=== PATIENT | female | born 1955 | race Caucasian/White ===

== ENCOUNTER 2017-07-28 22:39 | Observation (INO) | payer OTHER, SELFPAY ==
[2017-07-28 22:40] VITALS: BP 165/95; PULSE 64; RESP 16; TEMP 36.4; O2SAT 98; BMI 24.5
--- NOTE | 2017-07-28 23:03 | RAD_ITS ---
STUDY: X-RAY CHEST REASON FOR EXAM: Female, 61 years old. Chest pain TECHNIQUE: Frontal and lateral views of the chest. COMPARISON: None. FINDINGS: Left midlung atelectasis. There is no demonstrated pleural abnormality. Normal size heart. Normal mediastinum and bar. Normal visualized pulmonary arteries. Normal visualized aortic arch and descending thoracic aorta. Normal visualized thoracic spine. Normal visualized ribs, clavicles, and shoulders. There is no demonstrated abnormality of the visualized soft tissue structures of the upper abdomen. RAD/Chest PA and Lateral IMPRESSION: Left midlung atelectasis. Electronically Signed: Morris More MD at 0:01 EST Tel , Service support ,
--- NOTE | 2017-07-28 23:03 | EKG12_ITS ---
Test Reason : WEAKNESS Blood Pressure : / mmHG Vent. Rate : 062 BPM Atrial Rate : 062 BPM P-R Int : 178 ms QRS Dur : 072 ms QT Int : 442 ms P-R-T Axes : 060 -09 029 degrees QTc Int : 448 ms Normal sinus rhythm with sinus arrhythmia Normal ECG Confirmed by HEVER STRICKLAND ([id number]), facer operator RAYNE ALCOCER ([id number]) on 08/01/2017 12:58:54 PM Referred By: ELODIA Confirmed By:HEVER STRICKLAND
--- NOTE | 2017-07-28 23:04 | CT_ITS ---
STUDY: CT BRAIN WITHOUT CONTRAST REASON FOR EXAM: Female, 61 years old. Dizziness, lightheadedness RADIATION DOSAGE (If Supplied By Facility): CTDIvol = ( 44.99 ) mGy, DLP = ( 762.36 ) mGycm TECHNIQUE: Transaxial CT imaging of the brain was performed without administration of intravenous contrast material. Sagittal and coronal images are reformatted. Individualized dose optimization techniques were used for this CT. COMPARISON: None. FINDINGS: Normal soft tissue structures. Normal calvarium. Normal size ventricles and extra-axial spaces for the patient's age. Normal white matter tracts of the cerebral hemispheres. Normal basal ganglia and thalami. Normal brainstem. Normal cerebellum. There is no intracranial hemorrhage. There are no findings of an acute ischemic infarction. Normal visualized paranasal sinuses. CT/Brain/Head without Contrast IMPRESSION: Normal unenhanced CT scan of the brain. No acute intracranial process. Electronically Signed: Steve Tinoco DO at 0:03 EST , Service support ,
--- NOTE | 2017-07-28 23:09 | NURSING ---
NO OLD EKG
[2017-07-28] MEDS: Ondansetron 4 MG/2 ML Vial IV (23:11)
[2017-07-28] MEDS: Aspirin 81 MG TAB.CHEW 324 MG PO (23:12)
[2017-07-28 23:23] LABS: Absolute Lymphocyte Count 2.75 X10^3/ul (0.83-4.51); Absolute Neutrophil Count 3.4 X10^3/uL (2.0-7.7); Basophil# 0.03 X10^3/uL; Basophil% 0.4 % (0-1); Eosinophil# 0.11 X10^3/uL; Eosinophils% 1.6 % (0-5); Hematocrit 39.4 % (37-47); Hemoglobin 13.3 g/dl (12.0-15.0); Lymphocyte # 2.75 X10^3/ul (4.0); Lymphocyte % 39.8 % (19-41); Mean Corp Hgb Conc 33.8 g/gl (32-36); Mean Corpuscular Hgb 28.7 pg (27.0-32.0); Mean Corpuscular Volume 85.1 fL (81-99); Mean Platelet Vol. 9.4 fl (6.2-12.0); Monocyte# 0.65 X10^3/uL; Monocyte% 9.4 % (0-10); Neutrophil # 3.36 X10^3/uL (2.7-7.7); Neutrophil % 48.7 % (47-70); POSITIVE COUNT NO; POSITIVE DIFFERENTIAL NO; POSITIVE MORPHOLOGY NO; Platelet Count 237 K/mm3 (150-450); RBC Distribution Width CV 13.2 % (11.6-14.6); RBC Distribution Width SD 40.7 fl (35.1-43.9); Red Blood Count 4.63 M/mm3 (4.2-5.4); White Blood Count 6.9 K/mm3 (4.4-11.0)
[2017-07-28 23:36] LABS: Anion Gap 9 (5-15); BUN 21 mg/dL (7-18); BUN/Creat Ratio 16.4 RATIO (10-20); Calcium,Total 8.4 mg/dL (8.5-10.1); Chloride 107 mmol/L (98-107); Creatinine, Serum 1.28 mg/dL (0.55-1.02); EST Glomerular Filtration Rate 45 mL/min (>60); Est Glom Filt Rate - Afr Amer 55 mL/min (>60); Estimated Creatinine Clearance 35.71 ml/min; Glucose 100 mg/dL (74-106); Potassium 3.2 mmol/L (3.5-5.1); Sodium Level 144 mmol/L (136-145)
[2017-07-29] VITALS (7 sets, daily range): BP systolic 109–133; BP diastolic 63–76; PULSE 55–64; RESP 15–19; TEMP 36.4–36.7; O2SAT 95–98; BMI 25.3
--- NOTE | 2017-07-29 00:40 | ED.VISSUMM ---
- ER Visit Summary Date of Service: 07/29/17 Chief Complaint: Dizziness and right arm pain History of Present Illness: The patient is a 61 F presenting for evaluation secondary to dizziness and right arm pain. Patient states that she worked a 12-1/2 hour shift tonight. Her shifts are involved with heavy lifting. Patient states that she typically tolerates this well well, has not had any recent illnesses, but today while she was working she started to have a sudden feeling of lightheadedness and felt as if she was going to pass out. Patient states this lasted for a couple of minutes she actually had to sit down, and she had a repeat episode is sometime later. She denies that there was any chest pain or palpitations associated with this. Patient states that however at home, she started to developed intense nausea right arm pain and numbness and severe cold clammy skin and that her does also corroborate. Patient has no history of hypertension diabetes high cholesterol or premature family history of cardiac disease. She is a non-smoker. Patient has stress test back in 2001 prior to a surgery that was negative. She denies any DVT or PE risk factors. She denies any visual changes or weakness associated with this. She denies any speech difficulty. Physical Examination: Vital signs are within normal limits, patient is afebrile. General: Patient is well-nourished well-developed and in no acute distress. Head: Normocephalic, atraumatic Eyes: Pupils equal round and reactive bilaterally, extra occular motion intact bialterally ENT: Moist mucous membranes Neck: Supple, no lymphadenopathy, no JVD, no meningismus CVS: Heart regular rate and rhythm, no murmurs, rubs or gallops, normal S1 and S2, radial pulses 2+ bilaterally Resp: Respirations nondistressed, lung sounds clear bilaterally Abdomen: Soft, nontender, nondistended, no palpable masses, normal bowel sounds Back: Nontender Extremities: Nontender, atraumatic, active full range of motion, no peripheral edema Skin: warm, no rashes, no petechia Neuro: Alert and oriented x 4, CN 2-12 intact, no lateralizing neurological defecits NIH stroke scale negative Psyc: Normal affect Test Results: EKG shows sinus rate 62, normal MT and QTc intervals, normal ST segments and T waves no evidence of acute ischemia or arrhythmia. CBC, chemistry, troponin found to be negative. Chest x-ray negative per radiology. CT brain negative per radiology. Emergency Department Course and Treatment: Patient presented for evaluation secondary to a episode of dizziness right arm pain and diaphoresis. She was worked up for the possibility of cardiac etiology versus intracranial etiology. CT was negative, and the patient's symptoms really do not seem consistent with a stroke so further workup of that was not pursued. Patient's cardiac workup was also found to be negative as noted above. Went back and reinterviewed and reexamined the patient, she really is not somebody who seeks medical care very often and she states that she felt as if she was going to and her states that she was very cold and diaphoretic during this episode so I am still concerned for cardiac etiology despite her low risk heart score. I believe she requires admission I will discuss this with the hospitalist. Disposition: Admission Impression: 1. Chest pain This note was generated with [employer] dictation software. It may contain incorrect words, spelling, and punctuation that were not noted in review of the chart prior to signing ED Disposition - Plan for ED Patient: Chief Complaint: Weakness Referrals: Qamar Davison Chi, MD [Primary Care Provider] -
--- NOTE | 2017-07-29 00:44 | ED.DCSUM_ITS ---
- ER Visit Summary Date of Service: 07/29/17 Chief Complaint: Dizziness and right arm pain History of Present Illness: The patient is a 61 F presenting for evaluation secondary to dizziness and right arm pain. Patient states that she worked a 12- 1/2 hour shift tonight. Her shifts are involved with heavy lifting. Patient states that she typically tolerates this well well, has not had any recent illnesses, but today while she was working she started to have a sudden feeling of lightheadedness and felt as if she was going to pass out. Patient states this lasted for a couple of minutes she actually had to sit down, and she had a repeat episode is sometime later. She denies that there was any chest pain or palpitations associated with this. Patient states that however at home, she started to developed intense nausea right arm pain and numbness and severe cold clammy skin and that her does also corroborate. Patient has no history of hypertension diabetes high cholesterol or premature family history of cardiac disease. She is a non-smoker. Patient has stress test back in 2001 prior to a surgery that was negative. She denies any DVT or PE risk factors. She denies any visual changes or weakness associated with this. She denies any speech difficulty. Physical Examination: Vital signs are within normal limits, patient is afebrile. General: Patient is well-nourished well-developed and in no acute distress. Head: Normocephalic, atraumatic Eyes: Pupils equal round and reactive bilaterally, extra occular motion intact bialterally ENT: Moist mucous membranes Neck: Supple, no lymphadenopathy, no JVD, no meningismus CVS: Heart regular rate and rhythm, no murmurs, rubs or gallops, normal S1 and S2, radial pulses 2+ bilaterally Resp: Respirations nondistressed, lung sounds clear bilaterally Abdomen: Soft, nontender, nondistended, no palpable masses, normal bowel sounds Back: Nontender Extremities: Nontender, atraumatic, active full range of motion, no peripheral edema Skin: warm, no rashes, no petechia Neuro: Alert and oriented x 4, CN 2-12 intact, no lateralizing neurological defecits NIH stroke scale negative Psyc: Normal affect Test Results: EKG shows sinus rate 62, normal [place] and QTc intervals, normal ST segments and T waves no evidence of acute ischemia or arrhythmia. CBC, chemistry, troponin found to be negative. Chest x-ray negative per radiology. CT brain negative per radiology. Emergency Department Course and Treatment: Patient presented for evaluation secondary to a episode of dizziness right arm pain and diaphoresis. She was worked up for the possibility of cardiac etiology versus intracranial etiology. CT was negative, and the patient's symptoms really do not seem consistent with a stroke so further workup of that was not pursued. Patient's cardiac workup was also found to be negative as noted above. Went back and reinterviewed and reexamined the patient, she really is not somebody who seeks medical care very often and she states that she felt as if she was going to and her states that she was very cold and diaphoretic during this episode so I am still concerned for cardiac etiology despite her low risk heart score. I believe she requires admission I will discuss this with the hospitalist. Disposition: Admission Impression: 1. Chest pain This note was generated with [employer] dictation software. It may contain incorrect words, spelling, and punctuation that were not noted in review of the chart prior to signing ED Disposition - Plan for ED Patient: Chief Complaint: Weakness Referrals: Qamar Davison Chi, MD [Primary Care Provider] -
--- NOTE | 2017-07-29 01:46 | HP.PCM_ITS ---
Problem List (1) Chest pain Status: Acute (2) MARY (acute kidney injury) Status: Acute (3) Hypokalemia Status: Acute History of Present Illness Date of Admission: 07/29/17 Chief Complaint: Chest pain The patient is a 61 year old female previous healthy woke up this evening from right hand numbness. Numbness was severe and constant. Nothing made it better or worse. Pt became diaphoretic and became dizzy when standing. 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 She stated that during the shift she became lightheaded and almost passed out. She had to sit down which helped with her dizziness. However she stood up again, she experienced the lightheadedness. She developed chest pain today. She felt substernal pressure. It was severe and lasted for minutes. She came to the ED for further workup. Past Medical History Allergies morphine Adverse Reaction (Verified 07/28/17 22:41) Vomiting Home Medications: Ambulatory Orders Medication Instructions Recorded NK [NK] 07/28/17 Lives: Spouse/ Significant Other Smoking Status: Never smoker Alcohol: None Drugs: None - *Family History Maternal History Items: No pertinent history Review of Systems Constitutional: Denies: Chills, Fever, Weight Change HEENT: Denies: Head Aches, Sinus Congestion, Sinus Drainage Cardiovascular: Reports: Chest Pain, Light Headedness, Palpitations, Syncope Respiratory: Denies: Cough, Shortness of breath at rest, Sputum production Gastrointestinal: Denies: Abdominal Pain, Nausea, Vomiting Genitourinary: Denies: Dysuria Musculoskeletal: Denies: Joint Pain, Joint Tenderness Skin: Denies: Rash, Wounds Neurological: Denies: Numbness, Tingling, Focal weakness Psychiatric: Denies: Anxiety, Depression, Homicidal Ideations, Suicidal Ideations Hematologic/ Lymphatic: Denies: Easy Bruising, Easy Bleeding VTE Information - Inpt Only VTE Present on Admission: No VTE Mechan Device Prophylaxis: SCD's VTE Pharm Prophylaxis ordered?: Yes Patient Problems: Active and Suspected Problems Chest pain (Acute) MARY (acute kidney injury) (Acute) Hypokalemia (Acute) - Physical Exam General: Alert, Oriented x3, Cooperative HEENT: Atraumatic, PERRLA, EOMI, Normocephalic Neck: Supple, No JVD, Negative Carotid Bruits Lungs: Clear to auscultation, Normal air movement Cardiovascular: Regular rate, No murmurs Abdomen: Bowel Sounds Present, Soft, Non Tender Extremities: No edema, Capillary Refill Less than 3 Seconds Skin: No rashes, No breakdown Musculoskeletal: No Tenderness to Palpation of Joints or Extremities Neurological: Cranial nerves II-XII grossly intact Psych/Mental Status: Normal Affect, Appropriate Vital Signs Temp Pulse Resp BP Pulse Ox 97.5 F L 61 19 H 133/76 H 95 07/29/17 01:15 07/29/17 01:15 07/29/17 01:15 07/29/17 01:15 07/29/17 01:15 Oxygen Delivery Method Room Air Weight: 58.967 kg Body Mass Index (BMI) 24.5 Laboratory Tests Past 24 Hrs 07/28/17 07/28/17 22:55 22:55 WBC 6.9 RBC 4.63 Hgb 13.3 Hct 39.4 MCV 85.1 MCH 28.7 MCHC 33.8 RDW 13.2 RDW Differential 40.7 Plt Count 237 MPV 9.4 Immature Gran % (Auto) 0.100 Neut % (Auto) 48.7 Lymph % (Auto) 39.8 [place] % (Auto) 9.4 Eos % (Auto) 1.6 Baso % (Auto) 0.4 Absolute Neuts (auto) 3.4 Absolute Lymphs (auto) 2.75 Total Counted Not Reportable Sodium 144 Potassium 3.2 L Chloride 107 Carbon Dioxide 28.0 Anion Gap 9 BUN 21 H Creatinine 1.28 H Estim Creat Clear Calc 35.71 Est GFR (MDRD) Af Amer 55 L Est GFR (MDRD) Non-Af 45 L BUN/Creatinine Ratio 16.4 Glucose 100 Calcium 8.4 L Troponin I < 0.02 Assessment/Plan Active and Suspected Problems Chest pain (Acute) MARY (acute kidney injury) (Acute) Hypokalemia (Acute) 61 year old female previous healthy woke up this evening from right hand numbness. 1) Chest pain: Heart score 4 Will get serial trops. First trop negative. EKG and chest xray unremarkable. ECHO in AM. Stress test in AM. 2) MARY: Likely azotemia. Will hydrate. If no improvement, will consider workup. 3) Hypokalemia: Will replete. Monitor. 4) Prophylaxis: SCD / heparin.
[2017-07-29] MEDS: 0.9% Normal Saline 1,000 ML 125 ML IV (02:08)
[2017-07-29 03:28] LABS: Absolute Lymphocyte Count 1.86 X10^3/ul (0.83-4.51); Absolute Neutrophil Count 3.4 X10^3/uL (2.0-7.7); Basophil# 0.02 X10^3/uL; Basophil% 0.3 % (0-1); Eosinophil# 0.11 X10^3/uL; Eosinophils% 1.9 % (0-5); Hematocrit 38.1 % (37-47); Hemoglobin 12.4 g/dl (12.0-15.0); Lymphocyte # 1.86 X10^3/ul (4.0); Lymphocyte % 32.1 % (19-41); Mean Corp Hgb Conc 32.5 g/gl (32-36); Mean Corpuscular Hgb 27.7 pg (27.0-32.0); Mean Corpuscular Volume 85.2 fL (81-99); Mean Platelet Vol. 9.5 fl (6.2-12.0); Monocyte# 0.38 X10^3/uL; Monocyte% 6.6 % (0-10); Neutrophil # 3.42 X10^3/uL (2.7-7.7); Neutrophil % 58.9 % (47-70); POSITIVE COUNT NO; POSITIVE DIFFERENTIAL NO; POSITIVE MORPHOLOGY NO; Platelet Count 210 K/mm3 (150-450); RBC Distribution Width CV 13.3 % (11.6-14.6); RBC Distribution Width SD 41.1 fl (35.1-43.9); Red Blood Count 4.47 M/mm3 (4.2-5.4); White Blood Count 5.8 K/mm3 (4.4-11.0)
[2017-07-29 03:49] LABS: BUN 19 mg/dL (7-18); Creatinine, Serum 0.88 mg/dL (0.55-1.02); EST Glomerular Filtration Rate 69 mL/min (>60); Estimated Creatinine Clearance 51.94 ml/min; Glucose 95 mg/dL (74-106)
[2017-07-29 03:50] LABS: ALB/GLOB Ratio 1.2 RATIO (0.9-2.4); AST(SGOT) 20 U/L (15-37); Alanine Aminotransfer ALT/SGPT 22 U/L (13-56); Albumin, Serum 3.4 g/dL (3.2-5.0); Alkaline Phosphatase 83 U/L (45-117); Anion Gap 7 (5-15); BUN/Creat Ratio 21.5 RATIO (10-20); Calcium,Total 8.2 mg/dL (8.5-10.1); Chloride 108 mmol/L (98-107); Cholesterol 166 mg/dL (200); Est Glom Filt Rate - Afr Amer 84 mL/min (>60); Globulin 2.9 g/dL (2.2-4.2); High Density Lipoprotein 51 mg/dL; Magnesium 1.9 mg/dL (1.6-2.6); Protein, Total 6.3 g/dL (6.4-8.2); Sodium Level 142 mmol/L (136-145); Thyroid Stim Hormone (TSH) 0.53 uIU/mL (0.358-3.74); Triglycerides 62 mg/dL; Very Low Density Lipoprotein 12 mg/dL (5-40)
--- NOTE | 2017-07-29 05:55 | ECHOD_ITS ---
Reason For Study: CHEST PAIN Procedure This was a 2D Doppler, Color Flow transthoracic echocardiogram. Exam performed portable in patient room. Left Ventricle Normal LV size. Apical false tendon noted. Left ventricular systolic function is normal. The estimated ejection fraction is 65 %. Transmitral doppler flow suggestive of impaired relaxation of left ventricle. No regional wall motion abnormalities noted. Right Ventricle Normal RV size. Normal systolic function. Atria Normal left atrium. Normal right atrium. Mitral Valve There is no mitral annular calcification. Normal mitral valve. Trivial mitral valve insufficiency. Tricuspid Valve Normal tricuspid valve. Trivial tricuspid valve insufficiency. Right ventricular systolic pressure estimated to be 23 mmHg. Aortic Valve Trisinus/trileaflet aortic valve. Normal aortic valve. Trivial aortic valve insufficiency. Pulmonic Valve The pulmonic valve is not well visualized. Mild (1+) pulmonic valve insufficiency. Great Vessels Normal sized aortic root. Pericardium/Pleural No pericardial effusion. MMode/2D Measurements & Calculations LVIDd: 3.8 cm IVSd: 0.88 cm Ao root diam: 3.1 cm LVIDs: 2.6 cm LVPWd: 0.83 cm LA dimension: 3.0 cm RVDd: 3.4 cm FS: 32.5 % LAV(MOD-bp): 34.5 ml LA A4 area: 14.4 cm2 RA A4 area: 10.6 cm2 LAV(MOD-bp) Indexed: 21.6 ml/m2 LAV(MOD-sp2): 34.8 ml LAV(MOD-sp4): 31.2 ml Doppler Measurements & Calculations MV E max monty: 76.1 cm/sec Ao V2 max: 131.4 cm/sec LV V1 max: 103.2 cm/sec MV A max monty: 83.5 cm/sec Ao max P.9 mmHg LV V1 max P.3 mmHg MV E/A: 0.91 PA V2 max: 70.1 cm/sec TR max monty: 221.3 cm/sec TR max P.6 mmHg Interpretation Summary Left ventricular systolic function is normal. The estimated ejection fraction is 65 %. Apical false tendon noted. Trivial mitral valve insufficiency. Trivial tricuspid valve insufficiency. Trivial aortic valve insufficiency. Mild (1+) pulmonic valve insufficiency. Right ventricular systolic pressure estimated to be 23 mmHg. Transmitral doppler flow suggestive of impaired relaxation of left ventricle Ordering Physician: Shree Subramanian Referring Physician: Qamar Davison Chi Performed By: Mimi Son, KARTIKCS, RVT
--- NOTE | 2017-07-29 05:55 | EKG12_ITS ---
Test Reason : AM EKG Blood Pressure : / mmHG Vent. Rate : 070 BPM Atrial Rate : 070 BPM P-R Int : 184 ms QRS Dur : 064 ms QT Int : 446 ms P-R-T Axes : 068 009 029 degrees QTc Int : 481 ms Normal sinus rhythm Low voltage QRS Prolonged QT Abnormal ECG Confirmed by KRUNAL DE LA CRUZ, CAMILLE ([id number]), sound editor RAYNE ALCOCER ([id number]) on 08/02/2017 2:41:52 PM Referred By: GORDY BARRETO Confirmed By:CAMILLE HECTOR MD
[2017-07-29] MEDS: Lisinopril 5 MG Tablet PO (06:34)
[2017-07-29] MEDS: Aspirin E.C. 81 MG Tablet PO (06:34)
--- NOTE | 2017-07-29 10:00 | STRESSREP ---
Stress Test Report Date: 07/29/2017 Procedure: Exercise tolerance test/imaging study Indications: Chest pain; dizziness Consent: Per the patient Procedure: The patient exercised on a Jhoan protocol for 7 minutes 30 seconds completing stage 2 and 1 minute 30 seconds of stage III achieving a peak heart rate of 141 bpm (87 % predicted maximal heart rate) with a peak blood pressure 134/82 mmHg and a peak MET capacity of 8 METs. The baseline ECG demonstrated sinus bradycardia. The peak exercise ECG demonstrated no obvious ECG changes. [There were no cardiac dysrhythmias pretest, during exercise, or recovery]. The functional capacity was considered average. There was [no complaint of chest discomfort during exercise or recovery]. The examination was discontinued secondary to leg discomfort. Impression: 1. Technically adequate (percent predicted maximal heart rate greater than 85%) exercise tolerance test 2. Peak exercise ECG with no obvious ECG changes 3. No cardiac dysrhythmias pretest, during exercise, or recovery. 4. Nuclear images pending Myocardial perfusion imaging study: Technique: The patient was injected with 11.8 mCi of technetium 99m Cardiolite and subsequently rest SPECT Cardiolite nuclear imaging was obtained in the horizontal long, vertical long, and short axis views. The patient exercised on a Jhoan protocol for 7 minutes 30 seconds completing stage 2 and 1 minute 30 seconds of stage III achieving a peak heart rate of 141 bpm (87 % predicted maximal heart rate) with a peak blood pressure 134/82 mmHg and a peak MET capacity of 8 METs. The patient was injected with 35.4 mCi of technetium 99m Cardiolite and subsequently stress SPECT Cardiolite nuclear imaging was obtained in the horizontal long, vertical long, and short axis views. A gated Cardiolite study at peak stress was obtained. Interpretation: Rest and stress SPECT Cardiolite nuclear imaging status post realignment, normalization, and attenuation correction, demonstrates [the appearance of relative uniform tracer uptake and myocardial perfusion appearing within normal limits]. [There is end systolic thickening and brightening]. The gated Cardiolite study demonstrates [myocardial thickening and inward wall motion]. The reported LVEF is 70 %. Impression: 1. Rest and stress SPECT Cardiolite nuclear imaging demonstrate [relative uniform tracer uptake and myocardial perfusion appearing within normal limits]. 2. The gated Cardiolite study reports an LVEF of 70 %. Of note: During the aforementioned exercise tolerance test: Status post exercising for 7 minutes and 30 seconds, achieving greater than 85% predicted maximal heart rate, and receiving her second dose of technetium 99m Cardiolite, the treadmill, without provocation, was noted to abruptly stop. The patient was subsequently requested, as a cool down period, to walk in place for approximately 1 minute prior to exiting the treadmill. The patient continued in the recovery phase. The patient remained symptomatically and hemodynamically stable. This note was generated with [employer] dictation software. It may contain incorrect words, spelling, and punctuation that were not noted in checking the note before signing.
--- NOTE | 2017-07-29 11:13 | DCINST_ITS ---
- Discharge Diagnoses Current Active Problems: Current Active and Chronic Problems Chest pain (Acute) MARY (acute kidney injury) (Acute) Hypokalemia (Acute) You will use the following diet at home:: No restrictions Discharge Activity: Return to Normal Activity Weight Bearing Status: Weight bearing as tolerated Call your doctor if you observe: Fever of 101 or Higher, - - worsening pain/ numbness in right arm Instructions: ED Chest Pain NonCardiac Allergies/Adverse Reactions: Allergies morphine Adverse Reaction (Verified 07/28/17 22:41) Vomiting Medications to take at Discharge Cholecalciferol (Vitamin D3) [Vitamin D3] 400 unit PO DAILY 07/29/17 Ferrous Sulfate [Iron] 325 mg PO DAILY 07/29/17 Primary Care Physician: Qamar Davison Chi, MD [Primary Care Provider] - Within 2 Weeks Please Follow Up With: Sergio Dominguez DO - Orthopaedics. Call if pain in right leg does not improve. When: 1 month as needed for right leg pain. Proposed Discharge Date: 07/29/17
--- NOTE | 2017-07-29 11:14 | PCM.DC.SUM ---
Discharge Date and Diagnosis - Problem List Patient Problems: Active and Suspected Problems Chest pain (Acute) MARY (acute kidney injury) (Acute) Hypokalemia (Acute) Date of Admission: 07/29/17 Date of Discharge: 07/29/17 - Primary Discharge Diagnosis Active and Suspected Problems Chest pain (Acute) MARY (acute kidney injury) (Acute) Hypokalemia (Acute) Hospital Course and Treatment Imaging Results: 07/29/17 05:55 Echo Complete [ECHO] AM (NON MEDS) Nuclear Stress Test - Treadmil [NM] Routine Clinical Impression(s) from Imaging Studies Chest X-Ray 07/28/17 23:03 IMPRESSION: Left midlung atelectasis. Electronically Signed: Morris More MD at 0:01 EST Tel , Service support , Brain CT 07/28/17 23:04 IMPRESSION: Normal unenhanced CT scan of the brain. No acute intracranial process. Electronically Signed: Steve Tinoco DO at 0:03 EST , Service support , Procedures: 2-D Echocardiogram, Stress test Summary of Care Provided: The patient is a 61 year old F awoke with right arm numbness and pain. Subsequently patient became diaphoretic and anxious and pale. Patient is also having chest pain as well. Patient presented to the emergency room and had lab work that showed hypokalemia and an elevated creatinine 1.28. Concern was for chest pain and being a cardiac equivalent. Patient underwent a 2D echocardiogram as well as nuclear stress tests of which both were negative. It was felt that this may have been related with panic attack with patient having the pain in her right arm. The pain in her right arm I feel is probably radicular or possibly related with patient's prior history of shoulder surgery. Patient said involved her whole arm. So patient stated did not just involve her hand, so I do not feel that it was anything like an ulnar nerve neuropathy nor carpal tunnel syndrome. Patient also talks of very localized throbbing pain just above her lateral malleolus on her right leg. Patient states that it gets better with rest and when she does work it seems aggravated. Feel the patient may have some tendinitis and I told her as much. I do not feel that it was a sciatica equivalent. 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 I told her that it is not strong recommendation that she hold off from work but that she may use a work excuse if she desires so. I told that she may follow-up with orthopedics if it seems to be an ongoing issue after a couple more weeks as this is been going on for 2 weeks already. Patient does take ibuprofen daily. I advised caution with that and to use it sparingly as needed. Physical exam: Vital Signs Height 1.55 m Weight: 60.8 kg Weight in Pounds 134.0 lbs Pulse Ox 98 Temperature 36.5 C Pulse Rate 55 Respiratory Rate 16 Blood Pressure 109/69 Blood Pressure Position Semi-Fowlers There is no acute distress. And visualization of the patient's right leg where she had pain had no reproducible tenderness. No varicosities, no rash. No masses appreciated. [] Discharge Diet: No Restrictions Discharge Activity: Return to Normal Activity Weight Bearing Status: Weight bearing as tolerated Call your doctor if you observe: Fever of 101 or Higher, - - worsening pain/numbness in right arm Home Medications: Medications to take at Discharge Cholecalciferol (Vitamin D3) [Vitamin D3] 400 unit PO DAILY 07/29/17 Ferrous Sulfate [Iron] 325 mg PO DAILY 07/29/17 Primary Care Physician: Qamar Davison Chi, MD [Primary Care Provider] - Within 2 Weeks Please Follow Up With: Sergio Dominguez DO - Orthopaedics. Call if pain in right leg does not improve. When: 1 month as needed for right leg pain. Patient Instructions: ED Chest Pain NonCardiac Disposition: Home Minutes spent on discharge:: 28 Patient Condition:: Good Meaningful Use Info Meaningful Use Diagnoses (Choose all that apply): None applicable Code Visit OBSV E&M: 55628 Observation care discharge
--- NOTE | 2017-07-29 11:18 | DS.PCM_ITS ---
Discharge Date and Diagnosis - Problem List Patient Problems: Active and Suspected Problems Chest pain (Acute) MARY (acute kidney injury) (Acute) Hypokalemia (Acute) Date of Admission: 07/29/17 Date of Discharge: 07/29/17 - Primary Discharge Diagnosis Active and Suspected Problems Chest pain (Acute) MARY (acute kidney injury) (Acute) Hypokalemia (Acute) Hospital Course and Treatment Imaging Results: 07/29/17 05:55 Echo Complete [ECHO] AM (NON MEDS) Nuclear Stress Test - Treadmil [NM] Routine Clinical Impression(s) from Imaging Studies Chest X-Ray 07/28/17 23:03 IMPRESSION: Left midlung atelectasis. Electronically Signed: Morris More MD at 0:01 EST Tel , Service support , Brain CT 07/28/17 23:04 IMPRESSION: Normal unenhanced CT scan of the brain. No acute intracranial process. Electronically Signed: Steve Tinoco DO at 0:03 EST , Service support , Procedures: 2-D Echocardiogram, Stress test Summary of Care Provided: The patient is a 61 year old F awoke with right arm numbness and pain. Subsequently patient became diaphoretic and anxious and pale. Patient is also having chest pain as well. Patient presented to the emergency room and had lab work that showed hypokalemia and an elevated creatinine 1.28. Concern was for chest pain and being a cardiac equivalent. Patient underwent a 2D echocardiogram as well as nuclear stress tests of which both were negative. It was felt that this may have been related with panic attack with patient having the pain in her right arm. The pain in her right arm I feel is probably radicular or possibly related with patient's prior history of shoulder surgery. Patient said involved her whole arm. So patient stated did not just involve her hand, so I do not feel that it was anything like an ulnar nerve neuropathy nor carpal tunnel syndrome. Patient also talks of very localized throbbing pain just above her lateral malleolus on her right leg. Patient states that it gets better with rest and when she does work it seems aggravated. Feel the patient may have some tendinitis and I told her as much. I do not feel that it was a sciatica equivalent. 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 I told her that it is not strong recommendation that she hold off from work but that she may use a work excuse if she desires so. I told that she may follow-up with orthopedics if it seems to be an ongoing issue after a couple more weeks as this is been going on for 2 weeks already. Patient does take ibuprofen daily. I advised caution with that and to use it sparingly as needed. Physical exam: Vital Signs Height 1.55 m Weight: 60.8 kg Weight in Pounds 134.0 lbs Pulse Ox 98 Temperature 36.5 C Pulse Rate 55 Respiratory Rate 16 Blood Pressure 109/69 Blood Pressure Position Semi-Fowlers There is no acute distress. And visualization of the patient's right leg where she had pain had no reproducible tenderness. No varicosities, no rash. No masses appreciated. [] Discharge Diet: No Restrictions Discharge Activity: Return to Normal Activity Weight Bearing Status: Weight bearing as tolerated Call your doctor if you observe: Fever of 101 or Higher, - - worsening pain/ numbness in right arm Home Medications: Medications to take at Discharge Cholecalciferol (Vitamin D3) [Vitamin D3] 400 unit PO DAILY 07/29/17 Ferrous Sulfate [Iron] 325 mg PO DAILY 07/29/17 Primary Care Physician: Qamra Davison Chi, MD [Primary Care Provider] - Within 2 Weeks Please Follow Up With: Sergio Dominguez DO - Orthopaedics. Call if pain in right leg does not improve. When: 1 month as needed for right leg pain. Patient Instructions: ED Chest Pain NonCardiac Disposition: Home Minutes spent on discharge:: 28 Patient Condition:: Good Meaningful Use Info Meaningful Use Diagnoses (Choose all that apply): None applicable Code Visit OBSV E&M: 10486 Observation care discharge
--- NOTE | 2017-07-29 11:18 | PCM.WORK.EX ---
Work/School Excuse Work/School Excuse for:: Patient Please excuse this person from:: Work From: 07/28/17 through: 07/30/17 Restrictions: Light Duty
== END 2017-07-29 11:13 | disposition home or self-care (01) ==
LOC: ED 23:24 → PCU 07-29 01:31
PROVIDERS: Admitting Provider Internal Medicine; Emergency Provider Emergency Medicine; Family Provider Family Medicine Geriatric Medicine; PCP Family Medicine Geriatric Medicine
DX: R07.89 Other chest pain (principal); N17.9 Acute kidney failure, unspecified; E87.6 Hypokalemia; M79.601 Pain in right arm; R20.0 Anesthesia of skin; R42 Dizziness and giddiness
CPT/HCPCS: 36415; 70450; 71046; 78452; 80048; 80053; 80061; 83735; 84443; 84484; 85025; 93005; 93017; 93306; 96361; 96374; 99218; 99284; A9500; J7030; A4216; G0378; J2405; J2785

== ENCOUNTER → 2017-08-11 13:06 | Outpatient (CLI) | payer OTHER, SELFPAY ==
[2017-08-11 14:16] LABS: Anion Gap 7 (5-15); BUN 16 mg/dL (7-18); BUN/Creat Ratio 19.5 RATIO (10-20); Calcium,Total 8.4 mg/dL (8.5-10.1); Chloride 107 mmol/L (98-107); Creatinine, Serum 0.82 mg/dL (0.55-1.02); EST Glomerular Filtration Rate 75 mL/min (>60); Est Glom Filt Rate - Afr Amer 91 mL/min (>60); Glucose 97 mg/dL (74-106); Potassium 3.9 mmol/L (3.5-5.1); Sodium Level 141 mmol/L (136-145)
== END ==
PROVIDERS: Family Provider Family Medicine Geriatric Medicine; PCP Family Medicine Geriatric Medicine; Visit Provider Family Medicine Geriatric Medicine
DX: E87.1 Hypo-osmolality and hyponatremia (principal)
CPT/HCPCS: 36415; 80048; 87633

== ENCOUNTER → 2018-04-02 15:24 | Outpatient (CLI) | payer OTHER, SELFPAY ==
[2018-04-02 17:22] LABS: Absolute Lymphocyte Count 2.05 X10^3/ul (0.83-4.51); Absolute Neutrophil Count 4.2 X10^3/uL (2.0-7.7); Basophil# 0.03 X10^3/uL; Basophil% 0.4 % (0-1); Eosinophil# 0.14 X10^3/uL; Hematocrit 39.7 % (37-47); Hemoglobin 13.4 g/dl (12.0-15.0); Lymphocyte # 2.05 X10^3/ul (4.0); Lymphocyte % 29.5 % (19-41); Mean Corp Hgb Conc 33.8 g/gl (32-36); Mean Corpuscular Hgb 28.6 pg (27.0-32.0); Mean Corpuscular Volume 84.8 fL (81-99); Mean Platelet Vol. 9.9 fl (6.2-12.0); Monocyte# 0.49 X10^3/uL; Neutrophil # 4.23 X10^3/uL (2.7-7.7); Neutrophil % 60.8 % (47-70); Platelet Count 218 K/mm3 (150-450); RBC Distribution Width CV 13.1 % (11.6-14.6); RBC Distribution Width SD 39.7 fl (35.1-43.9); Red Blood Count 4.68 M/mm3 (4.2-5.4)
[2018-04-02 17:23] LABS: POSITIVE COUNT NO; POSITIVE DIFFERENTIAL NO; POSITIVE MORPHOLOGY NO
[2018-04-02 17:35] LABS: ALB/GLOB Ratio 1.1 RATIO (0.9-2.4); AST(SGOT) 21 U/L (15-37); Alanine Aminotransfer ALT/SGPT 26 U/L (13-56); Albumin, Serum 3.7 g/dL (3.2-5.0); Alkaline Phosphatase 110 U/L (45-117); BUN 20 mg/dL (7-18); BUN/Creat Ratio 26.4 RATIO (10-20); Calcium,Total 8.7 mg/dL (8.5-10.1); Creatinine, Serum 0.76 mg/dL (0.55-1.02); EST Glomerular Filtration Rate 83 mL/min (>60); Est Glom Filt Rate - Afr Amer 100 mL/min (>60); Globulin 3.3 g/dL (2.2-4.2); Glucose 83 mg/dL (74-106); Sodium Level 142 mmol/L (136-145)
[2018-04-02 17:36] LABS: Anion Gap 8 (5-15); Chloride 105 mmol/L (98-107); Potassium 3.8 mmol/L (3.5-5.1); Thyroid Stim Hormone (TSH) 0.48 uIU/mL (0.358-3.74)
[2018-04-04 11:32] LABS: Hep C Antibodies <0.1 s/co ratio (0.0-0.9)
== END ==
PROVIDERS: Family Provider Family Medicine Geriatric Medicine; PCP Family Medicine Geriatric Medicine; Visit Provider Family Medicine Geriatric Medicine
DX: R53.83 Other fatigue (principal); Z13.89 Encounter for screening for other disorder
CPT/HCPCS: 36415; 80053; 84443; 85025; 86803

== ENCOUNTER → 2018-05-18 09:26 | Outpatient (CLI) | payer OTHER, SELFPAY ==
[2017-07-29 01:53] VITALS: BMI 25.3
[2018-05-18 10:14] LABS: Hematocrit 43.3 % (37-47); Hemoglobin 14.2 g/dl (12.0-15.0); Mean Corp Hgb Conc 32.8 g/gl (32-36); Mean Corpuscular Hgb 28.2 pg (27.0-32.0); Mean Corpuscular Volume 85.9 fL (81-99); Mean Platelet Vol. 9.1 fl (6.2-12.0); Platelet Count 235 K/mm3 (150-450); RBC Distribution Width CV 13.2 % (11.6-14.6); RBC Distribution Width SD 41.4 fl (35.1-43.9); Red Blood Count 5.04 M/mm3 (4.2-5.4); White Blood Count 6.2 K/mm3 (4.4-11.0)
[2018-05-18 10:15] LABS: Scan Indicated on CBC? Y/N NO
[2018-05-18 10:35] LABS: Anion Gap 7 (5-15); BUN 18 mg/dL (7-18); Calcium,Total 8.9 mg/dL (8.5-10.1); Chloride 109 mmol/L (98-107); Creatinine, Serum 0.82 mg/dL (0.55-1.02); EST Glomerular Filtration Rate 75 mL/min (>60); Est Glom Filt Rate - Afr Amer 91 mL/min (>60); Glucose 92 mg/dL (74-106); Potassium 4.1 mmol/L (3.5-5.1); Sodium Level 145 mmol/L (136-145)
--- OUTSIDE RECORDS SUMMARY | 2018-07-03 23:24 | XMS RPT_ITS ---
:1955 Author Organization [place] Care Team Providers Name Role Phone ALEX FLEMING (MCKINLEY) Referring Unavailable KATIE MARTINEZ (JOHN) Attending Unavailable Sergio Spaulding Attending Unavailable Sergio Spaulding Referring Unavailable Saman, Qamar Chi Primary Care Unavailable Saman, Qamar Chi Primary Care Unavailable Marilynn, Shree Admitting Unavailable Fermin Hernandez Attending Unavailable Marilynn, Shree Admitting Unavailable Saman, Qamar Chi Primary Care Unavailable Marilynn, Shree Consulting Unavailable Fermin Hernandez Attending Unavailable Saman, Qamar Chi Attending Unavailable Saman, Qamar Chi Primary Care Unavailable Jair Marie Attending Unavailable Marilynn, Shree Referring Unavailable Warren Linares Attending Unavailable Marilynn, Shree Referring Unavailable Saman, Qamar Chi Attending Unavailable Saman, Qamar Chi Primary Care Unavailable PROBLEMS PROBLEMS DATE TYPE CONDITION / CODE ATTENDING STATUS SOURCE 05/18/2018 Unknown Z01.818 - Encounter Sergio Spaulding Active [facility] for other [facility] preprocedural Hospital examination / Repository Z01.818(ICD-10) 04/04/2018 Unknown R53.83 - Other Saman, Qamar Chi Active [place] fatigue / Community R53.83(ICD-10) Hospital Repository 12/18/2017 Unknown E87.1 - Saman, Qamar Chi Active [facility] Hypo-osmolality and Community hyponatremia / Hospital E87.1(ICD-10) Repository 12/18/2017 Unknown R42 - Dizziness and Fermin Hernandez Active [facility] giddiness / Community R42(ICD-10) Hospital Repository 08/24/2017 Unknown R07.9 - Chest pain, MoodispaJair hall Active [facility] unspecified / Community R07.9(ICD-10) Hospital Repository PROCEDURES PROCEDURES No Procedure Records FoundRESULTS RESULTS CBC-COMPLETE BLOOD CNT Collected: 05/18/2018 Status: F Source: J[facility] NO DIFF 9:39 AM [facility] TYPE CODE TESTS RESULT OUT OF RANGE REFERENCE UNITS LAB L100.1000 4.4-11.0 K/mm3 Normal WBC 6.2 LAB L100.1200 4.2-5.4 M/mm3 Normal RBC 5.04 LAB L100.1300 12.0-15.0 g/dl Normal HGB 14.2 LAB L100.1400 37-47 % Normal HCT 43.3 LAB L100.1500 81-99 fL Normal MCV 85.9 LAB L100.1600 27.0-32.0 pg Normal MCH 28.2 LAB L100.1700 32-36 g/gl Normal MCHC 32.8 LAB L100.1810 11.6-14.6 % Normal RDW CV 13.2 LAB L100.1820 35.1-43.9 fl Normal RDW SD 41.4 LAB L100.1900 150-450 K/mm3 Normal PLT 235 LAB L100.2000 6.2-12.0 fl Normal MPV 9.1 Performed By: #### L100.0500 #### [facility] [address] [place], [address] BASIC METABOLIC Collected: 05/18/2018 Status: F Source: FLINT PROFILE (BMP) 9:39 AM [facility] REPOSITORY TYPE CODE TESTS RESULT OUT OF RANGE REFERENCE UNITS LAB L501.0100 74-106 mg/dL Normal GLU 92 Result Comment: Please note revised GLUCOSE reference range effective 2017. LAB L501.1000 7-18 mg/dL Normal BUN 18 LAB L501.1100 0.55-1.02 mg/dL Normal CREAT,SERUM 0.82 Result Comment: The validity of the calculated GFR AND GFRAA in patients over 70 years has not been determined. Clinical correlation is essential. LAB L501.1110 >60 mL/min Normal EST GFR 75 Result Comment: Non- GFR Calc LAB L501.1115 >60 mL/min Normal EST GFR - AA 91 Result Comment: GFR Calc LAB L501.1300 10-20 RATIO High BUN/CRE 22.0 LAB L501.2200 8.5-10.1 mg/dL CA Normal 8.9 LAB L501.5300 136-145 mmol/L NA Normal 145 LAB L501.5600 3.5-5.1 mmol/L K Normal 4.1 LAB L501.5900 98-107 mmol/L High CL 109 LAB L501.6100 21.0-32.0 mmol/L Normal CO2 29.0 LAB L501.6200 5-15 Normal GAP 7 Performed By: #### L500.2500 #### [facility] [address] [place], [address] PROGRESS Observed: 04/09/2018 Status: COMPLETED Source: [place] 3:34 PM [facility] [place] REPOSITORY HNO ID: [id number] Author: Heidy Reyes Service: (none) Author Type: (none) Type: Progress Notes Filed: 04/09/2018 3:34 PM Note Text: Pap logged and normal pap letter sent to patient. Heidy Reyes CBC W/DIFF, AUTOMATED Collected: 04/02/2018 Status: F Source: JESUS 3:31 PM [facility] REPOSITORY TYPE CODE TESTS RESULT OUT OF RANGE REFERENCE UNITS LAB L100.1000 4.4-11.0 K/mm3 Normal WBC 7.0 LAB L100.1200 4.2-5.4 M/mm3 Normal RBC 4.68 LAB L100.1300 12.0-15.0 g/dl Normal HGB 13.4 LAB L100.1400 37-47 % Normal HCT 39.7 LAB L100.1500 81-99 fL Normal MCV 84.8 LAB L100.1600 27.0-32.0 pg Normal MCH 28.6 LAB L100.1700 32-36 g/gl Normal MCHC 33.8 LAB L100.1810 11.6-14.6 % Normal RDW CV 13.1 LAB L100.1820 35.1-43.9 fl Normal RDW SD 39.7 LAB L100.1900 150-450 K/mm3 Normal PLT 218 LAB L100.2000 6.2-12.0 fl Normal MPV 9.9 LAB L100.2100 47-70 % Normal NEUT% 60.8 LAB L100.2200 19-41 % Normal LY% 29.5 LAB L100.2300 0-10 % Normal MONO% 7.0 LAB L100.2400 0-5 % Normal EO% 2.0 LAB L100.2500 0-1 % Normal BASO% 0.4 LAB L100.2550 0.0-0.9 % Normal IM GRAN % 0.300 Result Comment: IG% - Immature Granulocytes (promyelocytes, myelocytes and metamyelocytes) > 1% indicates that a LEFT SHIFT is Present. LAB L100.2620 2.0-7.7 X10 3/uL Normal Absolute Neut 4.2 LAB L100.2720 0.83-4.51 X10 3/ul Normal Absolute Lymph 2.05 Performed By: #### L100.0100 #### [facility] [address], [address] COMPREHENSIVE METABOLIC Collected: 04/02/2018 Status: F Source: JESUS BELTRE 3:31 PM [facility] REPOSITORY TYPE CODE TESTS RESULT OUT OF RANGE REFERENCE UNITS LAB L501.0100 74-106 mg/dL Normal GLU 83 Result Comment: Please note revised GLUCOSE reference range effective 2017. LAB L501.1000 7-18 mg/dL High BUN 20 LAB L501.1100 0.55-1.02 mg/dL Normal CREAT,SERUM 0.76 Result Comment: The validity of the calculated GFR AND GFRAA in patients over 70 years has not been determined. Clinical correlation is essential. LAB L501.1110 >60 mL/min Normal EST GFR 83 Result Comment: Non- GFR Calc LAB L501.1115 >60 mL/min Normal EST GFR - AA 100 Result Comment: GFR Calc LAB L501.1300 10-20 RATIO High BUN/CRE 26.4 LAB L501.1500 6.4-8.2 g/dL T Normal PROT 7.0 LAB L501.1800 3.2-5.0 g/dL Normal ALB 3.7 LAB L501.1950 2.2-4.2 g/dL Normal GLOB 3.3 LAB L501.2000 0.9-2.4 RATIO Normal A/G 1.1 LAB L501.2200 8.5-10.1 mg/dL CA Normal 8.7 LAB L501.4100 15-37 U/L Normal AST 21 LAB L501.4305 45-117 U/L Normal ALK P 110 LAB L501.4405 13-56 U/L Normal ALT 26 LAB L501.4600 0.20-1.00 mg/dL T Normal BILI 0.40 LAB L501.5300 136-145 mmol/L NA Normal 142 LAB L501.5600 3.5-5.1 mmol/L K Normal 3.8 LAB L501.5900 98-107 mmol/L CL Normal 105 LAB L501.6100 21.0-32.0 mmol/L Normal CO2 29.0 LAB L501.6200 5-15 Normal GAP 8 Performed By: #### L500.4050, L501.9520 #### [facility] [address] [place], [address] THYROID STIM HORMONE Collected: 04/02/2018 Status: F Source: JESUS (TSH) 3:31 PM [facility] REPOSITORY TYPE CODE TESTS RESULT OUT OF RANGE REFERENCE UNITS LAB L501.9520 0.358-3.74 uIU/mL Normal TSH 0.48 Performed By: #### L500.4050, L501.9520 #### [facility] [address] [place], [address] HEPATITIS C ANTIBODIES Collected: 04/02/2018 Status: F Source: JESUS 3:31 PM [facility] REPOSITORY TYPE CODE TESTS RESULT OUT OF RANGE REFERENCE UNITS LAB L3100.0650 0.0-0.9 s/co ratio Normal HEP C AB <0.1 Result Comment: Negative: < 0.8 Indeterminate: 0.8 - 0.9 Positive: > 0.9 The CDC recommends that a positive HCV antibody result be followed up with a HCV Nucleic Acid Amplification test (676585). Performed at: [facility] [id number] Unit Controller: David Campbell PhD, Phone: [phone] Performed By: #### L3100.0625 #### [facility] (refer to report for specific site) refer to report for address and phone number HPV W/GENOTYPE Collected: 04/02/2018 Status: F Source: [place] 9:16 AM [facility] REPOSITORY TYPE CODE TESTS RESULT OUT OF REFERENCE UNITS RANGE LAB HPVT16 HPV HighRisk Negative for Type 16 HPV DNA high risk type 16 by PCR. LAB HPVT18 HPV HighRisk Negative for Type 18 HPV DNA high risk type 18 by PCR. LAB HPVHRO HPV HighRisk Negative for Other HPV DNA high risk types: 31,33,35,39,45 ,51,52,56,58,5 9,66,68 by PCR. Result Comment: This test was developed and its performance characteristics determined by [facility] (-[facility]). It has not been cleared or approved by the FDA. -[facility] is regulated under CLIA as qualified to perform high-complexity testing. This test is used for clinical purposes. It should not be regarded as inv estigational or for research. Performed By: #### HPVHRR #### [facility] [address] [place], [place] [address] CYTOLOGY Observed: 04/02/2018 Status: C Source: SAHUARITA 9:16 [facility] REPOSITORY ADDITIONAL PROCEDURES PRESENT Specimen originated from [facility] Specimen #: [id number] Submitting Physician: KATIE MARTINEZ SPECIMEN SUBMITTED A: CERVICAL, SCREENING, FLUID FINAL DIAGNOSIS A. CERVICAL, SCREENING, FLUID Satisfactory for interpretation. Negative for intraepithelial lesion or malignancy. Atrophic specimen. This specimen has been analyzed by the ThinPrep Imaging System, an automated imaging and review system, which assists the laboratory in evaluating cells on ThinPrep Pap tests. Following automated imaging, selected pierson from every slide are reviewed by a customer engagement manager. VELVET Head(ASCP) (Electronic Signature) ADDITIONAL PROCEDURE(S) HUMAN PAPILLOMA VIRUS Date Ordered: 04/03/2018 Date Reported: 04/04/2018 Procedure Results and Interpretation Negative for HPV DNA high risk type 16 by PCR. Negative for HPV DNA high risk type 18 by PCR. Negative for HPV DNA high risk types: 31,33,35,39,45,51,52,56,58,59,66,68 by PCR. This test was developed and its performance characteristics determined by [facility] [place] ([facility]). It has not been cleared or approved by the FDA. -[facility] is regulated under CLIA as qualified to perform high-complexity testing. This test is used for clinical purposes. It should not be regarded as investigational or for research. CLINICAL DATA ROUTINE EXAM, HPV Testing: Yes, automatic HPV patients over 30 Date of Last Menstrual Period: Postmenopausal STAINS A: CERVICAL, SCREENING, FLUID THIN PREP MANAGER HUMAN RESOURCES Marsha Walsh M.D., Locomotive Firer/Fireman Date of Report: 04/09/2018 Date of Procedure: 04/02/2018 Date of Receipt: 04/03/2018 Submitted by: KATIE MARTINEZ Location: [facility] Diagnostic interpretation performed at [facility], [address] [place] [address]. The Pap Smear is a screening test for cervical cancer. False negative results occur with all screening tests, emphasizing the need for rescreening at recommended intervals, and clinical correlation. PROGRESS Observed: 04/02/2018 Status: COMPLETED Source: SA[place] 8:32 AM [facility] REPOSITORY O ID: [id number] Author: Katie Martinez Service: (none) Author Type: Nurse Practitioner Type: Progress Notes Filed: 04/02/2018 9:17 AM Note Text: Josselin Henry is a 62 year old who presents for her annual gynecologic exam with complaints, vaginal dryness and pain with intercourse. Postmenopausal: Yes since age 60 HRT use: No. Last Pap: ?? History of abnormal pap: No Last mammogram: 2007 normal History of abnormal mammogram: No Sexually active: Yes Pain with intercourse: Yes Postcoital bleeding: No Hot flashes: Yes Night sweats: Yes Vaginal dryness: Yes Obstetric History T2 L2 SAB0 TAB0 Ectopic0 Multiple0 Live Births0 PAST MEDICAL HISTORY Diagnosis Date - Diverticulitis - Sjogren's disease (HCC) PAST SURGICAL HISTORY Procedure Laterality Date - PAST SURGICAL HISTORY OF Right 3 surgeries on right shoulder FAMILY HISTORY Problem Relation Age of Onset - Diabetes Mother - Hypertension Mother - Dementia Mother - Alzheimer's Disease Father - Diabetes Father - Hypertension Father SOCIAL HISTORY Social History Substance Use Topics - Smoking status: Never Smoker - Smokeless tobacco: Never Used - Alcohol use No REVIEW OF SYSTEMS Abdomen: No abdominal pain, nausea, vomiting, diarrhea, or constipation. No bloating, early satiety, indigestion, or increased flatulence. Bladder: No dysuria, gross hematuria, urinary urgency, or incontinence +frequency Breast: No breast lumps, nipple d/c, overlying skin changes, redness or skin retraction Allergies and current medication updated:Yes EXAM: Ht 5' 3 (1.60m) Wt 140 lb 9.6 oz (63.8kg) BMI 24.91 kg/(m2). GENERAL: pleasant, female in no apparent distress HEENT: Normocephalic, atraumatic, mucus membranes moist and no lesions NECK: Supple, full range of motion, no adenopathy and thyroid normal DERMATOLOGY: Normal, without lesions, non-icteric and non-hirsute BREAST: soft, non-tender, symmetric, no dominant mass, normal nipple-areolar complex, no lymphadenopathy and no nipple discharge CHEST: Normal inspiratory effort ABDOMEN: soft, non-tender and no masses PELVIC: external genitalia normal, normal Bartholin's glands, urethra, [place]'s glands, no vulvar lesions, no cervical lesions, physiologic discharge present, normal appearing perineal body and perianal region BIMANUAL: uterus normal size, shape and consistency, no adnexal masses, non-tender and no cervical motion tenderness RECTOVAGINAL: deferred. NEURO: alert and oriented x3,exam grossly non-focal EXTREMITIES: normal ASSESSMENT/PLAN: 1) Health maintenance: Pap done with HPV. Mammogram ordered Nutrition, exercise and routine health maintenance exams reviewed. Calcium/Vitamin D supplementation information provided. 2) Follow up one year or sooner as needed Katie Martinez APRN.JOHN CNOV Observed: 04/02/2018 Status: COMPLETED Source: SAHUARITA 8:15 AM [facility] REPOSITORY Office Visit (WOOB) JOSSELIN HENRY ([id number]) 1955 F Date Time Provider Department 04/02/18 8:15 AM KATIE MARTINEZ (JOHN) WOOB During your visit today, we recorded the following information about you: Blood pressure Weight Height 140/70 63.8 kg 1.6 m Katie Martinez APRN.CNP 04/02/2018 9:17 AM Signed Josselin Henry is a 62 year old who presents for her annual gynecologic exam with complaints, vaginal dryness and pain with intercourse. Postmenopausal: Yes since age 60 HRT use: No. Last Pap: ?? History of abnormal pap: No Last mammogram: 2007 normal History of abnormal mammogram: No Sexually active: Yes Pain with intercourse: Yes Postcoital bleeding: No Hot flashes: Yes Night sweats: Yes Vaginal dryness: Yes Obstetric History T2 L2 SAB0 TAB0 Ectopic0 Multiple0 Live Births0 PAST MEDICAL HISTORY Diagnosis Date - Diverticulitis - Sjogren's disease (HCC) PAST SURGICAL HISTORY Procedure Laterality Date - PAST SURGICAL HISTORY OF Right 3 surgeries on right shoulder FAMILY HISTORY Problem Relation Age of Onset - Diabetes Mother - Hypertension Mother - Dementia Mother - Alzheimer's Disease Father - Diabetes Father - Hypertension Father SOCIAL HISTORY Social History Substance Use Topics - Smoking status: Never Smoker - Smokeless tobacco: Never Used - Alcohol use No REVIEW OF SYSTEMS Abdomen: No abdominal pain, nausea, vomiting, diarrhea, or constipation. No bloating, early satiety, indigestion, or increased flatulence. Bladder: No dysuria, gross hematuria, urinary urgency, or incontinence +frequency Breast: No breast lumps, nipple d/c, overlying skin changes, redness or skin retraction Allergies and current medication updated:Yes EXAM: Ht 5' 3 (1.60m) Wt 140 lb 9.6 oz (63.8kg) BMI 24.91 kg/(m2). GENERAL: pleasant, female in no apparent distress HEENT: Normocephalic, atraumatic, mucus membranes moist and no lesions NECK: Supple, full range of motion, no adenopathy and thyroid normal DERMATOLOGY: Normal, without lesions, non-icteric and non-hirsute BREAST: soft, non-tender, symmetric, no dominant mass, normal nipple-areolar complex, no lymphadenopathy and no nipple discharge CHEST: Normal inspiratory effort ABDOMEN: soft, non-tender and no masses PELVIC: external genitalia normal, normal Bartholin's glands, urethra, [place]'s glands, no vulvar lesions, no cervical lesions, physiologic discharge present, normal appearing perineal body and perianal region BIMANUAL: uterus normal size, shape and consistency, no adnexal masses, non-tender and no cervical motion tenderness RECTOVAGINAL: deferred. NEURO: alert and oriented x3,exam grossly non-focal EXTREMITIES: normal ASSESSMENT/PLAN: 1) Health maintenance: Pap done with HPV. Mammogram ordered Nutrition, exercise and routine health maintenance exams reviewed. Calcium/Vitamin D supplementation information provided. 2) Follow up one year or sooner as needed Katie Martinez APRN.JOHN Reyes 04/09/2018 3:34 PM Signed Pap logged and normal pap letter sent to patient. Heidy Reyes Referring Provider: SELF [200] Allergies As of Date: 04/02/2018 Noted Allergy Reaction MORPHINE 06/02/2016 11 - Vomiting Date Reviewed: 04/02/2018 Reviewed by: Katie Martinez - Fully Assessed Reason for Visit: Yearly Exam [187] Primary Visit Diagnosis:Encounter for gynecological examination (general) (routine) without abnormal findings [Z01.419] Other Visit Diagnoses:Visit for screening mammogram [Z12.31] Encounter for screening for human papillomavirus (HPV) [Z11.51] Pap smear for cervical cancer screening [Z12.4] Order(s):CECILIA SCREENING [9808419] Order #: [id number] FUTURE PAP FLUID CERVICAL SCREENING [[id number]] Order #: [id number] #:[id number] HPV W/GENOTYPE [SQHPVHRR] Order #: [id number]. #:[id number] Prescriptions as of 04/02/2018 Sig: IBUPROFEN 200 MG TABLET Take 200 mg by mouth every 6 * Problem List As Of Date: 04/02/2018 (None) Disposition: Return in 1 year (on 04/02/2019) for Annual Exam. Follow-up and Disposition History Recorded Letter Text Katie Martinez CNP [facility] [address] [place], [place] [address] Josselin Henry [address] [facility] [address] 04/09/2018 [facility]: [id number] Dear Josselin, We are pleased to inform you that your recent Pap Test was within normal limits. Because Pap tests are so effective in the early detection of cervical cancer, you are encouraged to continue having the test at regular intervals. You will be due for a 1 year Gynecological Exam after this date 04/02/2018. If you have any questions regarding the above information, do not hesitate to call our office at between the hours of 8:00 a.m. and 5:00 p.m. Sincerely, Katie Martinez CNP Encounter Status:Closed by KATIE MARTINEZ on 04/02/18 XR KNEE 4V AP/PA Observed: 02/23/2018 Status: F Source: [place] BOTH+LAT/[place] RT 6:01 PM [facility] REPOSITORY * * *Final Report* * * DATE OF EXAM: Feb 23 2018 6:01PM WOX 5203 - XR KNEE 4V AP/PA BOTH+LAT/[place]UANA[place] RT / PROCEDURE REASON: Unspecified injury of right lower leg, initial encounter * * * * Physician Interpretation * * * * EXAM TITLE: XR KNEE 4V AP/PA BOTH+LAT/[place]UANA[place] RT EXAM DATE/TIME: 02/23/2018 6:01 PM COMPARISON: None. CLINICAL INDICATION/HISTORY: Injury. TECHNIQUE: AP, lateral, sunrise and tunnel views of the right knee are presented. FINDINGS: No acute fractures or subluxations are noted. The joint spaces are well preserved. Tiny bony spur identified along the posterior aspect of the patella. There is no evidence of joint effusion. The mineralization of the bones is normal. There is no significant soft tissue swelling. IMPRESSION: Mild degenerative changes of the right knee. No acute fractures identified. 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: [employer] Transcribe Date/Time: Feb 23 2018 6:06P Dictated by : SYED PATIÑO MD This examination was interpreted and the report reviewed and electronically signed by: SYED PATIÑO MD on Feb 23 2018 6:08PM EST [id number] PROGRESS Observed: 02/23/2018 Status: COMPLETED Source: [place] 5:43 PM [facility] REPOSITORY HNO ID: [id number] Author: Davon Calderon (Rt) Service: (none) Author Type: Bow Stapler Type: Progress Notes Filed: 02/23/2018 6:02 PM Note Text: Radiology Service Progress Note PATIENT NAME: Josselin Henry DATE OF SERVICE: February 23, 2018 TIME: 5:43 PM PATIENT IDENTITY VERIFICATION COMPLETED USING TWO (2) METHODS: Patient confirmed name verbally and Date of . PATIENT GENDER DATA: Female. status: : No status: NO. PATIENT RELEVANT IMPLANT DATA REVIEWED: Not Applicable RADIOLOGY DEPARTMENT: General X-ray: Exam(s) Completed: Lower Extremity X-Ray(s): Knee, AP / Lat / Tunne / Merchant Right and Wt. Bearing: PERIPHERAL IV DATA: Not applicable SIGNED BY: RT Yumiko February 23, 2018 5:43 PM PROGRESS Observed: 02/23/2018 Status: COMPLETED Source: [place] 5:31 PM [facility] [place] REPOSITORY HNO ID: [id number] Author: Alex Fleming Service: (none) Author Type: Nurse Practitioner Type: Progress Notes Filed: 02/23/2018 6:27 PM Note Text: Subjective HPI HPI Josselin Henry is a 62 year old female who presents today for CC of right knee pain after fall today. Has tried compression for relief and ice. Symptoms are worsened by walking. States knee feels like it will give out when she walks. .Patient presents with: right knee injury No past medical history on file. No past surgical history on file. ALLERGIES Morphine MEDICATIONS No prescriptions on file. No family history on file. Social History Substance Use Topics - Smoking status: Never Smoker - Smokeless tobacco: Never Used - Alcohol use Not on file Review of Systems Constitutional: Negative for chills and fever. Musculoskeletal: Positive for joint pain. Negative for myalgias. Skin: Negative for itching and rash. Objective Blood pressure 136/88, pulse 77, temperature 37.3 ?C (99.1 ?F), temperature source Left Tympanic, resp. rate 16, weight 62.9 kg (138 lb 9.6 oz), SpO2 98 %. Physical Exam Constitutional: She is oriented to person, place, and time and well-developed, well-nourished, and in no distress. Non-toxic appearance. She does not have a sickly appearance. No distress. HENT: Head: Normocephalic and atraumatic. Cardiovascular: Pulses: Dorsalis pedis pulses are 2+ on the right side. Posterior tibial pulses are 2+ on the right side. Pulmonary/Chest: Effort normal. No accessory muscle usage. No respiratory distress. Musculoskeletal: Right knee: She exhibits decreased range of motion. She exhibits no swelling, no effusion, no ecchymosis, no deformity, no laceration, no erythema and normal alignment. Legs: Did not perform functional testing on right knee d/t severity of pain with manipulation Neurological: She is alert and oriented to person, place, and time. Skin: She is not diaphoretic. ASSESSMENT/PLAN: 1. Injury of right knee, initial encounter - ICD9: 959.7, ICD10: S89.91XA -no bony abnormality noted on xray -given stretches/exercises -Rest, Ice, Compression, Elevation discussed -discussed use of ibuprofen -follow up with primary care if symptoms persist/worsen in 10-14 days -continue wearing compression sleeve -crutches for comfort, patient has at home. -concerns for soft tissue tear, will refer to ortho - XR KNEE GENERAL 4V AP BOTH/PA - Dictated by : SYED PATIÑO MD BOTH/LAT/[facility] RT Impression IMPRESSION: Mild degenerative changes of the right knee. ?No acute fractures identified. Prescription instructions reviewed with patient as applicable. Patient advised if symptoms do not improve or if symptoms worsen sooner, to contact the office for further evaluation by their primary care physician. Potential red flag symptoms discussed with the patient. Reviewed appropriate action plan to take if red flag symptoms occur. Patient agreeable to treatment plan. Alex Fleming APRN.JHON CNOV Observed: 02/23/2018 Status: COMPLETED Source: [place] 5:00 PM [facility] REPOSITORY Office Visit (WSTR) JOSSELIN HENRY ([id number]) 1955 F Date Time Provider Department 02/23/18 5:00 PM ALEX FLEMING (JOHN) [facility] During your visit today, we recorded the following information about you: Temperature Pulse Respiration Blood pressure 99.1 degrees 77/minute 16/minute 136/88 Weight 62.9 kg Alex Fleming APRN.CNP 02/23/2018 6:27 PM Signed Subjective HPI HPI Josselin Henry is a 62 year old female who presents today for CC of right knee pain after fall today. Has tried compression for relief and ice. Symptoms are worsened by walking. States knee feels like it will give out when she walks. .Patient presents with: right knee injury No past medical history on file. No past surgical history on file. ALLERGIES Morphine MEDICATIONS No prescriptions on file. No family history on file. Social History Substance Use Topics - Smoking status: Never Smoker - Smokeless tobacco: Never Used - Alcohol use Not on file Review of Systems Constitutional: Negative for chills and fever. Musculoskeletal: Positive for joint pain. Negative for myalgias. Skin: Negative for itching and rash. Objective Blood pressure 136/88, pulse 77, temperature 37.3 ?C (99.1 ?F), temperature source Left Tympanic, resp. rate 16, weight 62.9 kg (138 lb 9.6 oz), SpO2 98 %. Physical Exam Constitutional: She is oriented to person, place, and time and well-developed, well-nourished, and in no distress. Non-toxic appearance. She does not have a sickly appearance. No distress. HENT: Head: Normocephalic and atraumatic. Cardiovascular: Pulses: Dorsalis pedis pulses are 2+ on the right side. Posterior tibial pulses are 2+ on the right side. Pulmonary/Chest: Effort normal. No accessory muscle usage. No respiratory distress. Musculoskeletal: Right knee: She exhibits decreased range of motion. She exhibits no swelling, no effusion, no ecchymosis, no deformity, no laceration, no erythema and normal alignment. Legs: Did not perform functional testing on right knee d/t severity of pain with manipulation Neurological: She is alert and oriented to person, place, and time. Skin: She is not diaphoretic. ASSESSMENT/PLAN: 1. Injury of right knee, initial encounter - ICD9: 959.7, ICD10: S89.91XA -no bony abnormality noted on xray -given stretches/exercises -Rest, Ice, Compression, Elevation discussed -discussed use of ibuprofen -follow up with primary care if symptoms persist/worsen in 10-14 days -continue wearing compression sleeve -crutches for comfort, patient has at home. -concerns for soft tissue tear, will refer to ortho - XR KNEE GENERAL 4V AP BOTH/PA - Dictated by : SYED PATIÑO MD BOTH/LAT/MERC RT Impression IMPRESSION: Mild degenerative changes of the right knee. ?No acute fractures identified. Prescription instructions reviewed with patient as applicable. Patient advised if symptoms do not improve or if symptoms worsen sooner, to contact the office for further evaluation by their primary care physician. Potential red flag symptoms discussed with the patient. Reviewed appropriate action plan to take if red flag symptoms occur. Patient agreeable to treatment plan. JAQUAN Dinh APRN.CNP 02/23/2018 6:19 PM Signed ASSESSMENT/PLAN: 1. Injury of right knee, initial encounter - ICD9: 959.7, ICD10: S89.91XA -no bony abnormality noted on xray -given stretches/exercises -Rest, Ice, Compression, Elevation discussed -discussed use of ibuprofen -follow up with primary care if symptoms persist/worsen in 10-14 days - XR KNEE GENERAL 4V AP BOTH/PA BOTH/LAT/MERC RT Alex Fleming APRN.CNP Referring Provider: SELF [[id number]] Allergies As of Date: 02/23/2018 Noted Allergy Reaction MORPHINE 06/02/2016 11 - Vomiting Date Reviewed: 02/23/2018 Reviewed by: Alex (John) - Fully Assessed Reason for Visit: right knee injury [Other] Primary Visit Diagnosis:Injury of right knee, initial encounter [S89.91XA] Order(s):XR KNEE GENERAL 4V AP BOTH/PA BOTH/LAT/MERC RT [2278713] Order #: [id number]. #:[id number] CONSULT TO ORTHOPAEDICS [9089] Order #: [id number]: 1 Problem List As Of Date: 02/23/2018 (None) Other instructions from your clinician: ASSESSMENT/PLAN: 1. Injury of right knee, initial encounter - ICD9: 959.7, ICD10: S89.91XA -no bony abnormality noted on xray -given stretches/exercises -Rest, Ice, Compression, Elevation discussed -discussed use of ibuprofen -follow up with primary care if symptoms persist/worsen in 10-14 days - XR KNEE GENERAL 4V AP BOTH/PA BOTH/LAT/MERC RT Alex Fleming APRN.CNP Encounter Status:Closed by ALEX FLEMING CNP on 02/23/18 Observed: 08/11/2017 Status: F Source: [place] RESPIRATORY PANEL 2:06 PM [facility] Copy of report sent to Infection Control Printer MS#[id number] 08/12/17 1040 DGRADY. RP PANEL Normal Reference Range = Not Detected RESULTS CALLED TO DR DOMINGO NURSE LINE 08/12/17 1039 Maki Will. REPORT READ BACK BY NO ONE. ADENOVIRUS Not Detected HUMAN METAPHNEUMO Not Detected INFLUENZA A Not Detected INFLUENZA A (SUBTYPE H1) Not Detected INFLUENZA A (SUBTYPE H3) Not Detected INFLUENZA B Not Detected PARAINFLUENZA 1 Not Detected PARAINFLUENZA 2 Not Detected PARAINFLUENZA 3 Not Detected PARAINFLUENZA 4 Not Detected RHINOVIRUS Positive for RHINOVIRUS by NAAT technology RSV A Not Detected RSV B Not Detected NAAT METHOD Testing was performed using nucleic acid amplification ORGANISM 1: RHINOVIRUS Performed By: #### M100.638 #### [facility] [address] [place] [address]. [place], [place], [address] BASIC METABOLIC Collected: 08/11/2017 Status: F Source: [place] PROFILE (BMP) 1:24 PM [facility] REPOSITORY TYPE CODE TESTS RESULT OUT OF RANGE REFERENCE UNITS LAB L501.0100 74-106 mg/dL Normal GLU 97 Result Comment: Please note revised GLUCOSE reference range effective 2017. LAB L501.1000 7-18 mg/dL Normal BUN 16 LAB L501.1100 0.55-1.02 mg/dL Normal CREAT,SERUM 0.82 Result Comment: The validity of the calculated GFR AND GFRAA in patients over 70 years has not been determined. Clinical correlation is essential. LAB L501.1110 >60 mL/min Normal EST GFR 75 Result Comment: Non- GFR Calc LAB L501.1115 >60 mL/min Normal EST GFR - AA 91 Result Comment: GFR Calc LAB L501.1300 10-20 RATIO Normal BUN/CRE 19.5 LAB L501.2200 8.5-10.1 mg/dL Low CA 8.4 LAB L501.5300 136-145 mmol/L NA Normal 141 LAB L501.5600 3.5-5.1 mmol/L K Normal 3.9 LAB L501.5900 98-107 mmol/L CL Normal 107 LAB L501.6100 21.0-32.0 mmol/L Normal CO2 27.0 LAB L501.6200 5-15 Normal GAP 7 Performed By: #### L500.2500 #### [facility] [address] [facility] [place], [address] 12 LEAD ELECTROCARDIOGRAM Observed: 08/02/2017 Status: F Source: [place] 2:42 PM [facility] REPOSITORY [facility] Cardiovascular Services [address] [place] [address] 12 Lead EKG 07/29/17 0521 MR#: [id number] Acct: [id number] Name: JOSSELIN HENRY Rep #: [id number] : 1955 61 From: Warren Linares MD Attending Dr: Fermin Hernandez DO Status: DIS COLEMAN Ordering Dr: Shree Barreto MD Date: 07/29/17 Location: [facility] Sex: F C Admitted: 07/29/17 Test Reason : AM EKG Blood Pressure : / mmHG Vent. Rate : 070 BPM Atrial Rate : 070 BPM P-R Int : 184 ms QRS Dur : 064 ms QT Int : 446 ms P-R-T Axes : 068 009 029 degrees QTc Int : 481 ms Normal sinus rhythm Low voltage QRS Prolonged QT Abnormal ECG Confirmed by WARREN LINARES MD ([id number]), health editor RAYNE ALCOCER ([id number]) on 08/02/2017 2:41:52 PM Referred By: GORDY BARRETO Confirmed By:WARREN LINARES MD 08/02/17 1441 Date Warren Linares MD CC: Shree Barreto MD; Qamar Davison MD Signed 12 LEAD ELECTROCARDIOGRAM Observed: 08/01/2017 Status: F Source: J[place]US 12:59 PM [facility]ENDING SALE TO [facility] REPOSITORY [facility] Cardiovascular Services [address] [place] [address] 12 Lead EKG 07/28/17 2249 MR#: [id number] Acct: [id number] Name: JOSSELIN HENRY Rep #: [id number] : 1955 61 From: Sincere Strickland MD Attending Dr: Fermin Hernandez DO Status: DIS COLEMAN Ordering Dr: Sergio Tobias MD Date: 07/28/17 Location: [facility] Sex: F C Admitted: 07/29/17 Test Reason : WEAKNESS Blood Pressure : / mmHG Vent. Rate : 062 BPM Atrial Rate : 062 BPM P-R Int : 178 ms QRS Dur : 072 ms QT Int : 442 ms P-R-T Axes : 060 -09 029 degrees QTc Int : 448 ms Normal sinus rhythm with sinus arrhythmia Normal ECG Confirmed by SINCERE STRICKLAND ([id number]), health editor RAYNE ALCOCER ([id number]) on 08/01/2017 12:58:54 PM Referred By: ELODIA Confirmed By:SINCERE STRICKLAND 08/01/17 1258 Date Sincere Strickland MD CC: Sergio Tobias; Qamar Davison MD Signed DISCHARGE SUMMARY Observed: 07/29/2017 Status: F Source: JESUS 11:18 AM [facility] REPOSITORY [facility] Medical Records Department [address] [place] [address] Discharge Summary 07/29/17 1114 MR#: [id number] Acct: [id number] Name: JAHAIRADORETHAJOSSELIN M Rep #: [id number] : 1955 61 From: Fermin Hernandez DO PCP: Saman DE LA CRUZ,[employer] Status: ADM COLEMAN Y Location: [place] [address] Discharge Date and Diagnosis - Problem List Patient Problems: Active and Suspected Problems Chest pain (Acute) MARY (acute kidney injury) (Acute) Hypokalemia (Acute) Date of Admission: 07/29/17 Date of Discharge: 07/29/17 - Primary Discharge Diagnosis Active and Suspected Problems Chest pain (Acute) MARY (acute kidney injury) (Acute) Hypokalemia (Acute) Hospital Course and Treatment Imaging Results: 07/29/17 05:55 Echo Complete [ECHO] AM (NON MEDS) Nuclear Stress Test - Treadmil [NM] Routine Clinical Impression(s) from Imaging Studies Chest X-Ray 07/28/17 23:03 IMPRESSION: Left midlung atelectasis. Electronically Signed: Morris More MD at 0:01 EST Tel , Service support , Brain CT 07/28/17 23:04 IMPRESSION: Normal unenhanced CT scan of the brain. No acute intracranial process. Electronically Signed: Steve Tinoco DO at 0:03 EST , Service support , Procedures: 2-D Echocardiogram, Stress test Summary of Care Provided: The patient is a 61 year old F awoke with right arm numbness and pain. Subsequently patient became diaphoretic and anxious and pale. Patient is also having chest pain as well. Patient presented to the emergency room and had lab work that showed hypokalemia and an elevated creatinine 1.28. Concern was for chest pain and being a cardiac equivalent. Patient underwent a 2D echocardiogram as well as nuclear stress tests of which both were negative. It was felt that this may have been related with panic attack with patient having the pain in her right arm. The pain in her right arm I feel is probably radicular or possibly related with patient's prior history of shoulder surgery. Patient said involved her whole arm. So patient stated did not just involve her hand, so I do not feel that it was anything like an ulnar nerve neuropathy nor carpal tunnel syndrome. Patient also talks of very localized throbbing pain just above her lateral malleolus on her right leg. Patient states that it gets better with rest and when she does work it seems aggravated. Feel the patient may have some tendinitis and I told her as much. I do not feel that it was a sciatica equivalent. 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 I told her that it is not strong recommendation that she hold off from work but that she may use a work excuse if she desires so. I told that she may follow-up with orthopedics if it seems to be an ongoing issue after a couple more weeks as this is been going on for 2 weeks already. Patient does take ibuprofen daily. I advised caution with that and to use it sparingly as needed. Physical exam: Vital Signs Height 1.55 m Weight: 60.8 kg Weight in Pounds 134.0 lbs Pulse Ox 98 There is no acute distress. And visualization of the patient's right leg where she had pain had no reproducible tenderness. No varicosities, no rash. No masses appreciated. [] Discharge Diet: No Restrictions Discharge Activity: Return to Normal Activity Weight Bearing Status: Weight bearing as tolerated Call your doctor if you observe: Fever of 101 or Higher, - - worsening pain/numbness in right arm Home Medications: Medications to take at Discharge Cholecalciferol (Vitamin D3) [Vitamin D3] 400 unit PO DAILY 07/29/17 Ferrous Sulfate [Iron] 325 mg PO DAILY 07/29/17 Primary Care Physician: Qamar Davison Chi, MD [Primary Care Provider] - Within 2 Weeks Please Follow Up With: Sergio Dominguez DO - Orthopaedics. Call if pain in right leg does not improve. When: 1 month as needed for right leg pain. Patient Instructions: ED Chest Pain NonCardiac Disposition: Home Minutes spent on discharge:: 28 Patient Condition:: Good Meaningful Use Info Meaningful Use Diagnoses (Choose all that apply): None applicable Code Visit OBSV E AND M: 69433 Observation care discharge 07/29/17 1118 <Electronically signed by Fermin Hernandez DO> Date Fermin Jopperi DO Cosigner Signature (if applicable): Date CC: Fermin Hernandez DO; Qamar Davison MD Signed DISCHARGE INSTRUCTION Observed: 07/29/2017 Status: F Source: JESUS 11:13 AM [facility] REPOSITORY [facility] Medical Records Department [address] [place] [address] Instructions for Home/Discharge Instructions 07/29/17 1111 MR#: [id number] Acct: [id number] Name: JOSSELIN HENRY Rep #: [id number] : 1955 61 From: Fermin Hernandez DO PCP: Qamar Davison MD, Chi Status: ADM COLEMAN - Discharge Diagnoses Current Active Problems: Current Active and Chronic Problems Chest pain (Acute) MARY (acute kidney injury) (Acute) Hypokalemia (Acute) You will use the following diet at home:: No restrictions Discharge Activity: Return to Normal Activity Weight Bearing Status: Weight bearing as tolerated Call your doctor if you observe: Fever of 101 or Higher, - - worsening pain/numbness in right arm Instructions: ED Chest Pain NonCardiac Allergies/Adverse Reactions: Allergies morphine Adverse Reaction (Verified 07/28/17 22:41) Vomiting Medications to take at Discharge Cholecalciferol (Vitamin D3) [Vitamin D3] 400 unit PO DAILY 07/29/17 Ferrous Sulfate [Iron] 325 mg PO DAILY 07/29/17 Primary Care Physician: Qamar Davison Chi, MD [Primary Care Provider] - Within 2 Weeks Please Follow Up With: Sergio Dominguez DO - Orthopaedics. Call if pain in right leg does not improve. When: 1 month as needed for right leg pain. Proposed Discharge Date: 07/29/17 07/29/17 1113 <Electronically signed by Fermin Hernandez DO> Date Fermin Hernandez DO CC: Qamar Davison MD ECHOCARDIOGRAM COMPLETE Observed: 07/29/2017 Status: F Source: JESUS 10:18 AM [facility] REPOSITORY [facility] Cardiovascular Services [address] [place] [address] Echo Complete 07/29/1712 MR#: [id number] Acct: [id number] Name: JOSSELIN HENRY Rep #: [id number] : 1955 61 From: Jair Marie MD Attending Dr: Fermin Hernandez DO Status: ADM COLEMAN Ordering Dr: Shree Barreto MD Date: 07/29/17 Location: [facility] Sex: F C Admitted: 07/29/17 Reason For Study: CHEST PAIN Procedure This was a 2D Doppler, Color Flow transthoracic echocardiogram. Exam performed portable in patient room. Left Ventricle Normal LV size. Apical false tendon noted. Left ventricular systolic function is normal. The estimated ejection fraction is 65 %. Transmitral doppler flow suggestive of impaired relaxation of left ventricle. No regional wall motion abnormalities noted. Right Ventricle Normal RV size. Normal systolic function. Atria Normal left atrium. Normal right atrium. Mitral Valve There is no mitral annular calcification. Normal mitral valve. Trivial mitral valve insufficiency. Tricuspid Valve Normal tricuspid valve. Trivial tricuspid valve insufficiency. Right ventricular systolic pressure estimated to be 23 mmHg. Aortic Valve Trisinus/trileaflet aortic valve. Normal aortic valve. Trivial aortic valve insufficiency. Pulmonic Valve The pulmonic valve is not well visualized. Mild (1+) pulmonic valve insufficiency. Great Vessels Normal sized aortic root. Pericardium/Pleural No pericardial effusion. MMode/2D Measurements AND Calculations LVIDd: 3.8 cm IVSd: 0.88 cm Ao root diam: 3.1 cm LVIDs: 2.6 cm LVPWd: 0.83 cm LA dimension: 3.0 cm RVDd: 3.4 cm FS: 32.5 % LAV(MOD-bp): 34.5 ml LA A4 area: 14.4 cm2 RA A4 area: 10.6 cm2 LAV(MOD-bp) Indexed: 21.6 ml/m2 LAV(MOD-sp2): 34.8 ml LAV(MOD-sp4): 31.2 ml Doppler Measurements AND Calculations MV E max monty: 76.1 cm/sec Ao V2 max: 131.4 cm/sec LV V1 max: 103.2 cm/sec MV A max monty: 83.5 cm/sec Ao max P.9 mmHg LV V1 max P.3 mmHg MV E/A: 0.91 PA V2 max: 70.1 cm/sec TR max monty: 221.3 cm/sec TR max P.6 mmHg Interpretation Summary Left ventricular systolic function is normal. The estimated ejection fraction is 65 %. Apical false tendon noted. Trivial mitral valve insufficiency. Trivial tricuspid valve insufficiency. Trivial aortic valve insufficiency. Mild (1+) pulmonic valve insufficiency. Right ventricular systolic pressure estimated to be 23 mmHg. Transmitral doppler flow suggestive of impaired relaxation of left ventricle Ordering Physician: Shree Barreto Referring Physician: Qamar Davison Chi Performed By: Mimi Son, RDJEET, RVT 07/29/17 1018 Date Jair Marie MD CC: Shree Barreto MD; Qamar Davison MD Date Dictated: 07/29/17911 Date Transcribed: 07/29/17 1018 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: Signed STRESS REPORT Observed: 07/29/2017 Status: F Source: JESUS 10:13 AM [facility] RE[facility] Cardiovascular Services [address] [place] [address] MR#: [id number] Acct: [id number] Name: JOSSELIN HENRY Rep #: [id number] : 1955 61 From: Jair Marie MD Primary Care: Qamar Davison MD, Chi Status: ADM COLEMAN Ordering Dr: Sex: F C Stress Test Report Date: 07/29/2017 Procedure: Exercise tolerance test/imaging study Indications: Chest pain; dizziness Consent: Per the patient Procedure: The patient exercised on a Jhoan protocol for 7 minutes 30 seconds completing stage 2 and 1 minute 30 seconds of stage III achieving a peak heart rate of 141 bpm (87 % predicted maximal heart rate) with a peak blood pressure 134/82 mmHg and a peak MET capacity of 8 METs. The baseline ECG demonstrated sinus bradycardia. The peak exercise ECG demonstrated no obvious ECG changes. [There were no cardiac dysrhythmias pretest, during exercise, or recovery]. The functional capacity was considered average. There was [no complaint of chest discomfort during exercise or recovery]. The examination was discontinued secondary to leg discomfort. Impression: 1. Technically adequate (percent predicted maximal heart rate greater than 85%) exercise tolerance test 2. Peak exercise ECG with no obvious ECG changes 3. No cardiac dysrhythmias pretest, during exercise, or recovery. 4. Nuclear images pending Myocardial perfusion imaging study: Technique: The patient was injected with 11.8 mCi of technetium 99m Cardiolite and subsequently rest SPECT Cardiolite nuclear imaging was obtained in the horizontal long, vertical long, and short axis views. The patient exercised on a Jhoan protocol for 7 minutes 30 seconds completing stage 2 and 1 minute 30 seconds of stage III achieving a peak heart rate of 141 bpm (87 % predicted maximal heart rate) with a peak blood pressure 134/82 mmHg and a peak MET capacity of 8 METs. The patient was injected with 35.4 mCi of technetium 99m Cardiolite and subsequently stress SPECT Cardiolite nuclear imaging was obtained in the horizontal long, vertical long, and short axis views. A gated Cardiolite study at peak stress was obtained. Interpretation: Rest and stress SPECT Cardiolite nuclear imaging status post realignment, normalization, and attenuation correction, demonstrates [the appearance of relative uniform tracer uptake and myocardial perfusion appearing within normal limits]. [There is end systolic thickening and brightening]. The gated Cardiolite study demonstrates [myocardial thickening and inward wall motion]. The reported LVEF is 70 %. Impression: 1. Rest and stress SPECT Cardiolite nuclear imaging demonstrate [relative uniform tracer uptake and myocardial perfusion appearing within normal limits]. 2. The gated Cardiolite study reports an LVEF of 70 %. Of note: During the aforementioned exercise tolerance test: Status post exercising for 7 minutes and 30 seconds, achieving greater than 85% predicted maximal heart rate, and receiving her second dose of technetium 99m Cardiolite, the treadmill, without provocation, was noted to abruptly stop. The patient was subsequently requested, as a cool down period, to walk in place for approximately 1 minute prior to exiting the treadmill. The patient continued in the recovery phase. The patient remained symptomatically and hemodynamically stable. This note was generated with [employer] dictation software. It may contain incorrect words, spelling, and punctuation that were not noted in checking the note before signing. 07/29/17 1013 <Electronically signed by Jair Marie MD> Date Jair Marie MD CC: Qamar Davison MD Date Dictated: 07/29/17 1000 Date Transcribed: 07/29/17 1000 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: PM Signed EMERGENCY DEPARTMENT Observed: 07/29/2017 Status: F Source: [place] SUMMARY 6:59 AM [facility] REPOSITORY [facility] Medical Records Department [address] [place] [address] Emergency Department Summary 07/29/17 0040 MR#: [id number] Acct: [id number] Name: JOSSELIN HENRY Rep #: [id number] : 1955 61 From: Sergio Tobias MD PCP: Qamar Davison MD, Chi Status: ADM COLEMAN - ER Visit Summary Date of Service: 07/29/17 Chief Complaint: Dizziness and right arm pain History of Present Illness: The patient is a 61 F presenting for evaluation secondary to dizziness and right arm pain. Patient states that she worked a 12-1/2 hour shift tonight. Her shifts are involved with heavy lifting. Patient states that she typically tolerates this well well, has not had any recent illnesses, but today while she was working she started to have a sudden feeling of lightheadedness and felt as if she was going to pass out. Patient states this lasted for a couple of minutes she actually had to sit down, and she had a repeat episode is sometime later. She denies that there was any chest pain or palpitations associated with this. Patient states that however at home, she started to developed intense nausea right arm pain and numbness and severe cold clammy skin and that her does also corroborate. Patient has no history of hypertension diabetes high cholesterol or premature family history of cardiac disease. She is a non-smoker. Patient has stress test back in 2001 prior to a surgery that was negative. She denies any DVT or PE risk factors. She denies any visual changes or weakness associated with this. She denies any speech difficulty. Physical Examination: Vital signs are within normal limits, patient is afebrile. General: Patient is well-nourished well-developed and in no acute distress. Head: Normocephalic, atraumatic Eyes: Pupils equal round and reactive bilaterally, extra occular motion intact bialterally ENT: Moist mucous membranes Neck: Supple, no lymphadenopathy, no JVD, no meningismus CVS: Heart regular rate and rhythm, no murmurs, rubs or gallops, normal S1 and S2, radial pulses 2+ bilaterally Resp: Respirations nondistressed, lung sounds clear bilaterally Abdomen: Soft, nontender, nondistended, no palpable masses, normal bowel sounds Back: Nontender Extremities: Nontender, atraumatic, active full range of motion, no peripheral edema Skin: warm, no rashes, no petechia Neuro: Alert and oriented x 4, CN 2-12 intact, no lateralizing neurological defecits NIH stroke scale negative Psyc: Normal affect Test Results: EKG shows sinus rate 62, normal AL and QTc intervals, normal ST segments and T waves no evidence of acute ischemia or arrhythmia. CBC, chemistry, troponin found to be negative. Chest x-ray negative per radiology. CT brain negative per radiology. Emergency Department Course and Treatment: Patient presented for evaluation secondary to a episode of dizziness right arm pain and diaphoresis. She was worked up for the possibility of cardiac etiology versus intracranial etiology. CT was negative, and the patient's symptoms really do not seem consistent with a stroke so further workup of that was not pursued. Patient's cardiac workup was also found to be negative as noted above. Went back and reinterviewed and reexamined the patient, she really is not somebody who seeks medical care very often and she states that she felt as if she was going to and her states that she was very cold and diaphoretic during this episode so I am still concerned for cardiac etiology despite her low risk heart score. I believe she requires admission I will discuss this with the hospitalist. Disposition: Admission Impression: 1. Chest pain This note was generated with Compology dictation software. It may contain incorrect words, spelling, and punctuation that were not noted in review of the chart prior to signing ED Disposition - Plan for ED Patient: Chief Complaint: Weakness Referrals: Qamar Davison Chi, MD [Primary Care Provider] - What to do if you have Problems For any increased pain, shortness of breath, bleeding, nausea or vomiting, chest pain, or any unexpected problems, contact your Primary Care Provider. Call [facility] ([phone]) or report to the closest Emergency Room. Call 911 if necessary. 07/29/17 0659 <Electronically signed by Sergio Tobias MD> Date Sergio Tobias MD Cosigner Signature (If Indicated): Date CC: Qamar Davison MD CBC W/DIFF, AUTOMATED Collected: 07/29/2017 Status: F Source: JESUS 2:50 AM [facility] REPOSITORY TYPE CODE TESTS RESULT OUT OF RANGE REFERENCE UNITS LAB L100.1000 4.4-11.0 K/mm3 Normal WBC 5.8 LAB L100.1200 4.2-5.4 M/mm3 Normal RBC 4.47 LAB L100.1300 12.0-15.0 g/dl Normal HGB 12.4 LAB L100.1400 37-47 % Normal HCT 38.1 LAB L100.1500 81-99 fL Normal MCV 85.2 LAB L100.1600 27.0-32.0 pg Normal MCH 27.7 LAB L100.1700 32-36 g/gl Normal MCHC 32.5 LAB L100.1810 11.6-14.6 % Normal RDW CV 13.3 LAB L100.1820 35.1-43.9 fl Normal RDW SD 41.1 LAB L100.1900 150-450 K/mm3 Normal PLT 210 LAB L100.2000 6.2-12.0 fl Normal MPV 9.5 LAB L100.2100 47-70 % Normal NEUT% 58.9 LAB L100.2200 19-41 % Normal LY% 32.1 LAB L100.2300 0-10 % Normal MONO% 6.6 LAB L100.2400 0-5 % Normal EO% 1.9 LAB L100.2500 0-1 % Normal BASO% 0.3 LAB L100.2550 0.0-0.9 % Normal IM GRAN % 0.200 Result Comment: IG% - Immature Granulocytes (promyelocytes, myelocytes and metamyelocytes) > 1% indicates that a LEFT SHIFT is Present. LAB L100.2620 2.0-7.7 X10 3/uL Normal Absolute Neut 3.4 LAB L100.2720 0.83-4.51 X10 3/ul Normal Absolute Lymph 1.86 Performed By: #### L100.0100 #### [facility] [address] [place], [address] TROPONIN-I Collected: 07/29/2017 Status: F Source: FLINT 2:50 AM [facility] REPOSITORY Order Comment: 'TROP' Serial specimen #1, #2, #3, or #4: 2 TYPE CODE TESTS RESULT OUT OF RANGE REFERENCE UNITS LAB L501.4010 <0.06 ng/mL Normal < 0.02 TROPONIN-I Result Comment: TROPONIN-I EXPECTED VALUES <0.05 NEGATIVE 0.06 - 0.59 AT RISK OF CO > OR = 0.60 SUGGEST CO Performed By: #### L501.4010 #### [facility] [address] [place], [address] COMPREHENSIVE METABOLIC Collected: 07/29/2017 Status: F Source: JESUS BELTRE 2:50 AM [facility] REPOSITORY TYPE CODE TESTS RESULT OUT OF RANGE REFERENCE UNITS LAB L501.0100 74-106 mg/dL Normal GLU 95 Result Comment: Please note revised GLUCOSE reference range effective 2017. LAB L501.1000 7-18 mg/dL High BUN 19 LAB L501.1100 0.55-1.02 mg/dL Normal CREAT,SERUM 0.88 Result Comment: The validity of the calculated GFR AND GFRAA in patients over 70 years has not been determined. Clinical correlation is essential. LAB L501.1110 >60 mL/min Normal EST GFR 69 Result Comment: Non- GFR Calc LAB L501.1115 >60 mL/min Normal EST GFR - AA 84 Result Comment: GFR Calc LAB L501.1255 ml/min Normal Estimated CRCL 51.94 LAB L501.1300 10-20 RATIO High BUN/CRE 21.5 LAB L501.1500 6.4-8. g/dL Low 2 T PROT 6.3 LAB L501.1800 3.2-5. g/dL Normal 0 ALB 3.4 LAB L501.1950 2.2-4. g/dL Normal 2 GLOB 2.9 LAB L501.2000 0.9-2. RATIO Normal 4 A/G 1.2 LAB L501.2200 8.5-10 mg/dL Low .1 CA 8.2 LAB L501.4100 15-37 U/L Normal AST 20 LAB L501.4305 45-117 U/L Normal ALK P 83 LAB L501.4405 13-56 U/L Normal ALT 22 Result Comment: Please note revised ALT reference range effective 2017. LAB L501.4600 0.20-1.00 mg/dL Normal T BILI 0.60 LAB L501.5300 136-145 mmol/L Normal NA 142 LAB L501.5600 3.5-5.1 mmol/L Normal K 4.0 LAB L501.5900 98-107 mmol/L High CL 108 LAB L501.6100 21.0-32.0 mmol/L Normal CO2 27.0 LAB L501.6200 5-15 Normal GAP 7 Performed By: #### L500.4050, L500.4100, L501.5200, L501.9520 #### [facility] [address] [place], [place], [address] LIPID PROFILE Collected: 07/29/2017 Status: F Source: FL[place] 2:50 AM [facility] REPOSITORY TYPE CODE TESTS RESULT OUT OF RANGE REFERENCE UNITS LAB L501.4900 200 mg/dL Normal CHOL 166 Result Comment: <200 mg/dL Desirable 200-240 mg/dL Borderline >240 mg/dL High Risk LAB L501.5000 mg/dL Normal TRIG 62 Result Comment: The drugs N-Acetylcysteine and Metamizole may falsely depress this assay. Serum Triglycerides Reference Interval Normal <150 mg/dL Borderline high 150 - 199 mg/dL High 200 - 499 mg/dL Very High > or = 500 mg/dL LAB L501.6400 mg/dL Normal HDL 51 Result Comment: The drugs N-Acetylcysteine and Metamizole may falsely depress this assay. Reference Range HDL <40 mg/dL Low HDL Cholesterol HDL >or= 60 mg/dL High HDL Cholesterol LAB L501.6500 0-130 mg/dL Normal LDL 103 LAB L501.6600 5-40 mg/dL Normal VLDL 12 Performed By: #### L500.4050, L500.4100, L501.5200, L501.9520 #### [facility] [address] [place], [place], [address] MAGNESIUM Collected: 07/29/2017 Status: F Source: FLINT 2:50 AM [facility] REPOSITORY TYPE CODE TESTS RESULT OUT OF RANGE REFERENCE UNITS LAB L501.5200 1.6-2.6 mg/dL Normal MG 1.9 Result Comment: Please note revised Magnesium reference range effective 2017. Performed By: #### L500.4050, L500.4100, L501.5200, L501.9520 #### [facility] [address] [place], [place], [id number] THYROID STIM HORMONE Collected: 07/29/2017 Status: F Source: FLINT (TSH) 2:50 AM [facility] REPOSITORY TYPE CODE TESTS RESULT OUT OF RANGE REFERENCE UNITS LAB L501.9520 0.358-3.74 uIU/mL Normal TSH 0.53 Performed By: #### L500.4050, L500.4100, L501.5200, L501.9520 #### [facility] [address] [place], [address] HISTORY AND PHYSICAL Observed: 07/29/2017 Status: F Source: FLINT EXAM 1:54 AM [facility] REPOSITORY [facility] Medical Records Department [address] [place] [address] History and Physical 07/29/17 0135 MR#: [id number] Acct: [id number] Name: JOSSELIN HENRY Rep #: [id number] : 1955 61 From: Shree Barreto MD PCP: Saman DE LA CRUZ,Qamar Middleton Status: ADM COLEMAN Y Location: [place] [address] Problem List (1) Chest pain Status: Acute (2) MARY (acute kidney injury) Status: Acute (3) Hypokalemia Status: Acute History of Present Illness Date of Admission: 07/29/17 Chief Complaint: Chest pain The patient is a 61 year old female previous healthy woke up this evening from right hand numbness. Numbness was severe and constant. Nothing made it better or worse. Pt became diaphoretic and became dizzy when standing. 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 She stated that during the shift she became lightheaded and almost passed out. She had to sit down which helped with her dizziness. However she stood up again, she experienced the lightheadedness. She developed chest pain today. She felt substernal pressure. It was severe and lasted for minutes. She came to the ED for further workup. Past Medical History Allergies morphine Adverse Reaction (Verified 07/28/17 22:41) Vomiting Home Medications: Ambulatory Orders Medication Instructions Recorded NK [NK] 07/28/17 Lives: Spouse/ Significant Other Smoking Status: Never smoker Alcohol: None Drugs: None - *Family History Maternal History Items: No pertinent history Review of Systems Constitutional: Denies: Chills, Fever, Weight Change HEENT: Denies: Head Aches, Sinus Congestion, Sinus Drainage Cardiovascular: Reports: Chest Pain, Light Headedness, Palpitations, Syncope Respiratory: Denies: Cough, Shortness of breath at rest, Sputum production Gastrointestinal: Denies: Abdominal Pain, Nausea, Vomiting Genitourinary: Denies: Dysuria Musculoskeletal: Denies: Joint Pain, Joint Tenderness Skin: Denies: Rash, Wounds Neurological: Denies: Numbness, Tingling, Focal weakness Psychiatric: Denies: Anxiety, Depression, Homicidal Ideations, Suicidal Ideations Hematologic/ Lymphatic: Denies: Easy Bruising, Easy Bleeding VTE Information - Inpt Only VTE Present on Admission: No VTE Mechan Device Prophylaxis: SCD's VTE Pharm Prophylaxis ordered?: Yes Patient Problems: Active and Suspected Problems Chest pain (Acute) MARY (acute kidney injury) (Acute) Hypokalemia (Acute) - Physical Exam General: Alert, Oriented x3, Cooperative HEENT: Atraumatic, PERRLA, EOMI, Normocephalic Neck: Supple, No JVD, Negative Carotid Bruits Lungs: Clear to auscultation, Normal air movement Cardiovascular: Regular rate, No murmurs Abdomen: Bowel Sounds Present, Soft, Non Tender Extremities: No edema, Capillary Refill Less than 3 Seconds Skin: No rashes, No breakdown Musculoskeletal: No Tenderness to Palpation of Joints or Extremities Neurological: Cranial nerves II-XII grossly intact Psych/Mental Status: Normal Affect, Appropriate Vital Signs Temp Pulse Resp BP Pulse Ox 97.5 F L 61 19 H 133/76 H 95 07/29/17 01:15 07/29/17 01:15 07/29/17 01:15 07/29/17 01:15 07/29/17 01:15 Oxygen Delivery Method Room Air Weight: 58.967 kg Body Mass Index (BMI) 24.5 Laboratory Tests Past 24 Hrs WBC 6.9 RBC 4.63 Hgb 13.3 Hct 39.4 MCV 85.1 MCH 28.7 MCHC 33.8 RDW 13.2 RDW Differential 40.7 Assessment/Plan Active and Suspected Problems Chest pain (Acute) MARY (acute kidney injury) (Acute) Hypokalemia (Acute) 61 year old female previous healthy woke up this evening from right hand numbness. 1) Chest pain: Heart score 4 Will get serial trops. First trop negative. EKG and chest xray unremarkable. ECHO in AM. Stress test in AM. 2) MARY: Likely azotemia. Will hydrate. If no improvement, will consider workup. 3) Hypokalemia: Will replete. Monitor. 4) Prophylaxis: SCD / heparin. 07/29/17 0154 <Electronically signed by Shree Barreto MD> Date Shree Barreto MD Cosigner Signature: Date (if applicable) CC: Shree Barreto MD; Qamar Davison MD Signed CHEST PA AND LATERAL Observed: 07/28/2017 Status: F Source: FLINT 11:05 PM [facility] REPOSITORY [facility] Imaging Services [address] [place] [address] Chest PA and Lateral MR#: [id number] Acct: [id number] Name: JOSSELIN HENRY Rep #: [id number] : 1955 F 61 From: Morris More MD PCP: Qamar Davison MD, Chi Status: REG ER Study: Chest PA and Lateral Date of Exam: 07/28/17 Exam# [id number] Ordering Dr: Sergio Tobias MD STUDY: X-RAY CHEST REASON FOR EXAM: Female, 61 years old. Chest pain TECHNIQUE: Frontal and lateral views of the chest. COMPARISON: None. FINDINGS: Left midlung atelectasis. There is no demonstrated pleural abnormality. Normal size heart. Normal mediastinum and bar. Normal visualized pulmonary arteries. Normal visualized aortic arch and descending thoracic aorta. Normal visualized thoracic spine. Normal visualized ribs, clavicles, and shoulders. There is no demonstrated abnormality of the visualized soft tissue structures of the upper abdomen. RAD/Chest PA and Lateral IMPRESSION: Left midlung atelectasis. Electronically Signed: Morris More MD at 0:01 EST Tel , Service support , CC: Sergio Tobias; Qamar Davison MD 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: Signed BRAIN/HEAD WITHOUT Observed: 07/28/2017 Status: F Source: JESUS CONTRAST 11:05 PM [facility] REPOSITORY [facility] Imaging Services [address] [place] [address] Brain/Head without Contrast MR#: [id number] Acct: [id number] Name: JOSSELIN HENRY Rep #: [id number] : 1955 F 61 From: Steve Tinoco PCP: Saman DE LA CRUZ,Qamar Middleton Status: REG ER Study: Brain/Head without Contrast Date of Exam: 07/28/17 Exam# [id number] Ordering Dr: Sergio Tobias MD STUDY: CT BRAIN WITHOUT CONTRAST REASON FOR EXAM: Female, 61 years old. Dizziness, lightheadedness RADIATION DOSAGE (If Supplied By Facility): CTDIvol = ( 44.99 ) mGy, DLP = ( 762.36 ) mGycm TECHNIQUE: Transaxial CT imaging of the brain was performed without administration of intravenous contrast material. Sagittal and coronal images are reformatted. Individualized dose optimization techniques were used for this CT. COMPARISON: None. FINDINGS: Normal soft tissue structures. Normal calvarium. Normal size ventricles and extra-axial spaces for the patient's age. Normal white matter tracts of the cerebral hemispheres. Normal basal ganglia and thalami. Normal brainstem. Normal cerebellum. There is no intracranial hemorrhage. There are no findings of an acute ischemic infarction. Normal visualized paranasal sinuses. CT/Brain/Head without Contrast IMPRESSION: Normal unenhanced CT scan of the brain. No acute intracranial process. Electronically Signed: Steve Tinoco DO at 0:03 EST , Service support , CC: Sergio Tobias; Qamar Davison MD 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: Signed CBC W/DIFF, AUTOMATED Collected: 07/28/2017 Status: F Source: JESUS 10:55 PM [facility] REPOSITORY TYPE CODE TESTS RESULT OUT OF RANGE REFERENCE UNITS LAB L100.1000 4.4-11.0 K/mm3 Normal WBC 6.9 LAB L100.1200 4.2-5.4 M/mm3 Normal RBC 4.63 LAB L100.1300 12.0-15.0 g/dl Normal HGB 13.3 LAB L100.1400 37-47 % Normal HCT 39.4 LAB L100.1500 81-99 fL Normal MCV 85.1 LAB L100.1600 27.0-32.0 pg Normal MCH 28.7 LAB L100.1700 32-36 g/gl Normal MCHC 33.8 LAB L100.1810 11.6-14.6 % Normal RDW CV 13.2 LAB L100.1820 35.1-43.9 fl Normal RDW SD 40.7 LAB L100.1900 150-450 K/mm3 Normal PLT 237 LAB L100.2000 6.2-12.0 fl Normal MPV 9.4 LAB L100.2100 47-70 % Normal NEUT% 48.7 LAB L100.2200 19-41 % Normal LY% 39.8 LAB L100.2300 0-10 % Normal MONO% 9.4 LAB L100.2400 0-5 % Normal EO% 1.6 LAB L100.2500 0-1 % Normal BASO% 0.4 LAB L100.2550 0.0-0.9 % Normal IM GRAN % 0.100 Result Comment: IG% - Immature Granulocytes (promyelocytes, myelocytes and metamyelocytes) > 1% indicates that a LEFT SHIFT is Present. LAB L100.2620 2.0-7.7 X10 3/uL Normal Absolute Neut 3.4 LAB L100.2720 0.83-4.51 X10 3/ul Normal Absolute Lymph 2.75 Performed By: #### L100.0100 #### [facility] [address] [place], [place], [address] BASIC METABOLIC Collected: 07/28/2017 Status: F Source: JESUS PROFILE (BMP) 10:55 PM [facility] REPOSITORY Order Comment: 'TROP' Serial specimen #1, #2, #3, or #4: 1 TYPE CODE TESTS RESULT OUT OF RANGE REFERENCE UNITS LAB L501.0100 74-106 mg/dL Normal GLU 100 Result Comment: Fasting Glucose result from 100 to 125 mg/dL suggests IMPAIRED HOMEOSTASIS per A.D.A. criteria. Please note revised GLUCOSE reference range effective 2017. LAB L501.1000 7-18 mg/dL High BUN 21 LAB L501.1100 0.55-1.02 mg/dL High CREAT,SERUM 1.28 Result Comment: The validity of the calculated GFR AND GFRAA in patients over 70 years has not been determined. Clinical correlation is essential. LAB L501.1110 >60 mL/min Low EST GFR 45 Result Comment: Non- GFR Calc LAB L501.1115 >60 mL/min Low EST GFR - AA 55 Result Comment: GFR Calc LAB L501.1255 ml/min Normal Estimated CRCL 35.71 LAB L501.1300 10-20 RATIO Normal BUN/CRE 16.4 LAB L501.2200 8.5-10 mg/dL Low .1 CA 8.4 LAB L501.5300 136-14 mmol/L Normal 5 NA 144 LAB L501.5600 3.5-5. mmol/L Low 1 K 3.2 LAB L501.5900 98-107 mmol/L Normal CL 107 LAB L501.6100 21.0-3 mmol/L Normal 2.0 CO2 28.0 LAB L501.6200 5-15 Normal GAP 9 Performed By: #### L500.2500, L501.4010 #### [facility] [address] [place], [address] TROPONIN-I Collected: 07/28/2017 Status: F Source: JESUS 10:55 PM [facility] REPOSITORY Order Comment: 'TROP' Serial specimen #1, #2, #3, or #4: 1 TYPE CODE TESTS RESULT OUT OF RANGE REFERENCE UNITS LAB L501.4010 <0.06 ng/mL Normal < 0.02 TROPONIN-I Result Comment: TROPONIN-I EXPECTED VALUES <0.05 NEGATIVE 0.06 - 0.59 AT RISK OF CO > OR = 0.60 SUGGEST CO Performed By: #### L500.2500, L501.4010 #### [facility] [address] [place], [address] ALLERGIES ALLERGIES DATE TYPE / CODE NAME / CODE REACTION SEVERITY SOURCE 07/28/2017 Drug morphine/[id number] Vomiting Unknown [facility] Allergy/416 1545(RXNORM) Hospital 163026(SNOM Repository ED CT) 06/02/2016 DRUG MORPHINE Vomiting [facility] INGREDI/[facility] [place] 033587(SNOM Repository ED CT) ENCOUNTERS ENCOUNTERS ADMIT/DISCHARGE ACCOUNT ADMITTING ENCOUNTER LOCATION SOURCE NUMBER CLASS 05/18/2018 [id number] Ambulatory [facility] ing:LAB Repository 04/02/2018 [id number] Ambulatory [facility] ing:POLAB3 Repository 04/02/2018/04/03/20 [id number] Ambulatory [address] Repository 02/23/2018/02/24/20 [id number] Ambulatory [address] Repository 02/23/2018/02/27/20 [id number] Ambulatory [address] Repository 08/11/2017 [id number] Ambulatory [facility] ing:PSN Repository 07/29/2017/07/29/19 [id number] Shree Barreto Ambulatory [address] ing:PCURoom: Repository [id number]: 1 07/29/2017 [id number] Shree Barreto [facility] 07/29/2017/07/29/19 [id number] Ambulatory BMSBuilding:Zan Lee [address] [place] [address] Repository 07/29/2017/07/29/19 [id number] Ambulatory BMSBuilding:[address] Repository PAYERS PAYERS ENCOUNTER GUARANTOR PAYER SUBSCRIBER SOURCE 05/18/2018 JOSSELIN Hawley Primary Insurance:COMP JOSSELIN [id number] E MANAGEMENTPolicy LETTYYKB: [facility] Number: [id number] [facility] [id number] [facility] [place] Date:4617-63-97PZ [address] [address]Nju: [phone], [place] [phone] () 20073QY: 05/18/2018 Secondary NOT GIVENUNK [place] Insurance:SELF PAY [facility] Number: Effective Repository Date:2018-05-18 04/02/2018 Kit Kriss Primary JOSSELIN Lee [id number] Insurance:CIGNAPolicy LETTYYKDOB: [facility] Number: [id number] Jackson Memorial Hospital [id number] Repository [place], [place] Date:3796-08-39WL [address] [address]Iym: [phone], [place] [phone] () [address]YE: 04/02/2018 Secondary NOT GIVENUNK [place] Insurance:SELF PAY [facility] Number: Effective Repository Date:2018-04-02 08/11/2017 Kit Monterroso Primary Insurance:GPA JOSSELIN [id number] E CIGNA NETWORKPoljustinay LETTYYKDOB: [facility] Number: [id number] Jackson Memorial Hospital [id number] Repository [facility], [place] Date:7954-08-67LO [address] [address]Ltg: [phone], [place] [phone] () [address]PJ: 08/11/2017 Secondary NOT GIVENUNK [place] Insurance:SELF PAY [facility] Number: Effective Repository Date:2017-08-11 07/29/2017 Kit Monterroso Primary JOSSELIN [id number] Insurance:CIGNAPolicy LETTYYKDOB: [facility] Number: [id number] Jackson Memorial Hospital [id number] Repository [place] Date:1372-33-12IH [address] [address]Fnm: [phone] [id number], [place] [phone] (HP) [address]JR: 07/29/2017 Secondary NOT GIVENUNK [place] Insurance:SELF PAY [facility] Number: Effective Repository Date:2017-07-28 07/29/2017 Kit E Primary Insurance:GPA JOSSELIN [id number] E CIGNA NETWORKPolicy JAHAIRADOB: [facility] Number: [id number] Jackson Memorial Hospital [id number] Repository [facility] [place] Date:7060-78-41VU [address] [address]Mje: [id number], [place] [phone]: [phone] ([phone] 07/29/2017 Secondary NOT GIVENUNK [place] Insurance:SELF PAY [facility] Number: Effective Repository Date:2017-07-29 07/29/2017 Kit E Primary JOSSELIN [id number] Insurance:CIGNAPolicy LETTYYKDOB: [facility] Number: [id number] Jackson Memorial Hospital [id number] Repository [facility], [place] Date:1005-01-25NQ [address] [address]Sgy: [id number] [place] [phone]: [phone] ([phone] 07/29/2017 Secondary NOT GIVENUNK [place] Insurance:SELF PAY [facility] Number: Effective Repository Date:2017-07-29 07/29/2017 Kit E Primary JOSSELIN [id number] Insurance:CIGNAPolicy JAHAIRADOB: [facility] Number: [id number] Jackson Memorial Hospital [id number] Repository [facility] [place] Date:5925-20-43UH [address] [address]Css: [id number], [place] [phone] 44050PJ: [phone] 07/29/2017 Secondary NOT GIVENUNK [place] Insurance:SELF PAY [facility] Number: Effective Repository Date:2017-07-29
== END ==
PROVIDERS: Physician Assistant Surgical; Family Provider Family Medicine Geriatric Medicine; PCP Family Medicine Geriatric Medicine; Referring Provider Orthopaedic Surgery; Visit Provider Orthopaedic Surgery
DX: Z01.818 Encounter for other preprocedural examination (principal)
CPT/HCPCS: 36415; 80048; 85027

== ENCOUNTER → 2019-02-26 14:12 | Outpatient (CLI) | payer OTHER, SELFPAY ==
[2017-07-29 01:53] VITALS: BMI 25.3
[2019-02-26 16:35] LABS: Absolute Lymphocyte Count 1.81 X10^3/uL (0.83-4.51); Absolute Neutrophil Count 3.5 X10^3/uL (2.0-7.7); Basophil# 0.04 X10^3/uL; Basophil% 0.6 % (0-1); Eosinophil# 0.25 X10^3/uL; Eosinophils% 4.1 % (0-5); Hemoglobin 14.3 g/dL (12.0-15.0); Lymphocyte # 1.81 X10^3/ul (4.0); Lymphocyte % 29.3 % (19-41); Mean Corp Hgb Conc 32.5 g/dL (32-36); Mean Corpuscular Volume 86.3 fL (81-99); Mean Platelet Vol. 9.9 fl (6.2-12.0); Monocyte# 0.57 X10^3/uL; Monocyte% 9.2 % (0-10); NRBC Flagged by Analyzer 0 % (0-5); Neutrophil # 3.47 X10^3/uL (2.7-7.7); Neutrophil % 56.3 % (47-70); Platelet Count 244 K/mm3 (150-450); RBC Distribution Width CV 12.7 % (11.6-14.6); RBC Distribution Width SD 39.7 fl (35.1-43.9); White Blood Count 6.2 K/mm3 (4.4-11.0)
[2019-02-26 16:57] LABS: AST(SGOT) 32 U/L (15-37); Alanine Aminotransfer ALT/SGPT 25 U/L (13-56); Albumin, Serum 3.7 g/dL (3.2-5.0); Alkaline Phosphatase 101 U/L (45-117); Anion Gap 9 (5-15); BUN 18 mg/dL (7-18); BUN/Creat Ratio 21.2 RATIO (10-20); Calcium,Total 8.9 mg/dL (8.5-10.1); Chloride 106 mmol/L (98-107); Creatinine, Serum 0.85 mg/dL (0.55-1.02); EST Glomerular Filtration Rate 72 mL/min (>60); Est Glom Filt Rate - Afr Amer 87 mL/min (>60); Globulin 3.7 g/dL (2.2-4.2); Glucose 81 mg/dL (74-106); Potassium 4.3 mmol/L (3.5-5.1); Protein, Total 7.4 g/dL (6.4-8.2); Sodium Level 142 mmol/L (136-145)
== END ==
PROVIDERS: Family Provider Family Medicine Geriatric Medicine; PCP Family Medicine Geriatric Medicine; Visit Provider Family Medicine Geriatric Medicine
DX: R10.9 Unspecified abdominal pain (principal)
CPT/HCPCS: 36415; 80053; 85025

== ENCOUNTER → 2019-02-27 10:26 | Outpatient (CLI) | payer OTHER, SELFPAY ==
--- NOTE | 2019-02-27 10:40 | CT_ITS ---
STUDY: CT ABDOMEN AND PELVIS WITH CONTRAST REASON FOR EXAM: Female, 63 years old. Left lower quadrant pain. History of diverticulitis. RADIATION DOSAGE (If Supplied By Facility): CTDIvol = ( 16.9 ) mGy, DLP = ( 519.13 ) mGycm TECHNIQUE: Transaxial images were obtained from the dome of the diaphragm to the symphysis pubis with oral contrast. IV/Oral Isovue 300 100CC was administered. Sagittal and coronal images were reconstructed. Individualized dose optimization techniques were used for this CT. COMPARISON: None. FINDINGS: Pectus excavatum deformity. The visualized portions of the heart are within normal limits. There is decreased attenuation of the liver consistent with steatosis. Normal gallbladder and extrahepatic biliary system. Normal spleen. Normal pancreas. Normal bilateral adrenal glands. Normal right kidney. Normal left kidney. There is a small hiatal hernia. Normal small intestine. There are multiple colonic diverticula consistent with diverticulosis. The appendix is visualized and appears normal. There is scattered atherosclerotic calcification of the abdominal aorta, without a demonstrated aneurysm. Normal inferior vena cava. Normal retroperitoneum. Normal urinary bladder. Normal abdominal wall. Normal osseous structures. CT/Abdomen/Pelvis WITH Contrast IMPRESSION: Sigmoid diverticulosis. Fatty infiltration of the liver. Electronically Signed: Segundo Moffett, at 13:35 EDT , Service support ,
== END ==
PROVIDERS: Family Provider Family Medicine Geriatric Medicine; PCP Family Medicine Geriatric Medicine; Referring Provider Family Medicine Geriatric Medicine; Visit Provider Family Medicine Geriatric Medicine
DX: K57.30 Diverticulosis of large intestine without perforation or abscess without bleeding (principal); K76.0 Fatty (change of) liver, not elsewhere classified; R10.9 Unspecified abdominal pain
CPT/HCPCS: 74177; Q9967

== ENCOUNTER → 2019-04-11 14:46 | Outpatient (CLI) | payer OTHER, SELFPAY ==
[2017-07-29 01:53] VITALS: BMI 25.3
[2019-04-11 15:27] LABS: Absolute Lymphocyte Count 2.08 X10^3/uL (0.83-4.51); Absolute Neutrophil Count 3.6 X10^3/uL (2.0-7.7); Basophil# 0.03 X10^3/uL; Basophil% 0.5 % (0-1); Eosinophil# 0.08 X10^3/uL; Eosinophils% 1.3 % (0-5); Hematocrit 41.4 % (37-47); Hemoglobin 13.6 g/dL (12.0-15.0); Lymphocyte # 2.08 X10^3/ul (4.0); Lymphocyte % 33.3 % (19-41); Mean Corp Hgb Conc 32.9 g/dL (32-36); Mean Corpuscular Hgb 28.5 pg (27.0-32.0); Mean Corpuscular Volume 86.8 fL (81-99); Mean Platelet Vol. 9.5 fl (6.2-12.0); Monocyte# 0.44 X10^3/uL; NRBC Flagged by Analyzer 0 % (0-5); Neutrophil % 57.6 % (47-70); Platelet Count 250 K/mm3 (150-450); RBC Distribution Width CV 12.8 % (11.6-14.6); RBC Distribution Width SD 40.6 fl (35.1-43.9); Red Blood Count 4.77 M/mm3 (4.2-5.4); White Blood Count 6.3 K/mm3 (4.4-11.0)
[2019-04-11 15:52] LABS: ALB/GLOB Ratio 1.2 RATIO (0.9-2.4); AST(SGOT) 19 U/L (15-37); Alanine Aminotransfer ALT/SGPT 23 U/L (13-56); Albumin, Serum 3.7 g/dL (3.2-5.0); Alkaline Phosphatase 98 U/L (45-117); Anion Gap 9 (5-15); BUN 16 mg/dL (7-18); BUN/Creat Ratio 18.3 RATIO (10-20); Calcium,Total 8.6 mg/dL (8.5-10.1); Chloride 107 mmol/L (98-107); Creatinine, Serum 0.87 mg/dL (0.55-1.02); EST Glomerular Filtration Rate 70 mL/min (>60); Est Glom Filt Rate - Afr Amer 85 mL/min (>60); Globulin 3.1 g/dL (2.2-4.2); Glucose 93 mg/dL (74-106); Potassium 3.5 mmol/L (3.5-5.1); Protein, Total 6.8 g/dL (6.4-8.2); Sodium Level 145 mmol/L (136-145); Thyroid Stim Hormone (TSH) 0.21 uIU/mL (0.358-3.74)
[2019-04-15 08:59] LABS: T3 Uptake 33 % (30-39); T4 Free Direct 0.99 ng/dL (0.76-1.46)
== END ==
PROVIDERS: Family Provider Family Medicine Geriatric Medicine; PCP Family Medicine Geriatric Medicine; Visit Provider Family Medicine Geriatric Medicine
DX: R53.83 Other fatigue (principal); E03.9 Hypothyroidism, unspecified
CPT/HCPCS: 36415; 80053; 84439; 84443; 84479; 85025

== ENCOUNTER 2019-05-30 11:00 | Outpatient (RCR) | payer OTHER, SELFPAY ==
--- NOTE | 2019-01-15 14:31 | HP.PTEVAL_ITS ---
Patient's Visit Information ADRIANO CAMPO is a 63 year old F referred to Physical Therapy by Sergio Maxwell DO with a diagnosis of LEFT SHOULDER SUPERIOR GLENOID LABRUM LESION AND SPRAIN.. Date of Evaluation: 12/31/18 Physical Therapist: Sandi Waters, PT, Cert MDT - Visit Plan Frequency: 3x /Week Duration: 6 Weeks Plan: CONTINUE TO SLOWLY PROGRESS LEFT UE ROM, STRETCHING AND STRENGTHEING TOLERATED. 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 OFF WORK SINCE JUN 07 2018. TENTATIVE RETURN TO WORK DATE NOT SCHEDULED. 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 Disability: N0. Present symptoms: LEFT SHOULDER PAIN, SORENESS, POPPING AND CRACKING AND SOMETIMES IT GOES DOWN HER ARM TO HER FOREARM. SOMETIMES AT NIGHT BOTH HANDS GO TO SLEEP. NECK PAIN - INTERMITTENT AND LEFT ONLY. JAW PAIN ALSO. HAD A PLATE MADE. Present since: INITIAL INJURY WAS DECEMBER 08 2017. RE-INJURED IN PHYSICAL THERAPY PER PATIENT REPORT APPROX OCT 22 2018. Pain Scale: Worst - 7/10Least - 06/14. Currently: 06/14. Commenced as a result of: INITIALLY PATIENT REPORTS SHE WAS DOING HER JOB AND SHE FELT HER LEFT SHOULDER GIVE WHILE GETTING A BOX DOWN FROM OVER-HEAD THAT WAS ABOUT 30 LBS. Symptoms at onset: LEFT SHOULDER PAIN. Worse: CARRYING ANYTHING, SLEEPING, MOVING IT OUT TO THE SIDE, THE WRONG WAY AND TRYING TO PUT IT BEHIND HER BACK. CAN'T PUT IT BEHIND HER BACK. ANYTHING WITH THE LEFT ARM EXCEPT LIFTING PART WAY UP FORWARD. TRYING TO CARRY PURSE AND TWISTING IT ALSO HURTS. Better: NOT USING IT, PROPPING A PILLOW UNDER IT, ICE, CELEBREX, IBUPROFEN. Disturbed sleep: YES. Previous history/Previous treatment: NO HISTORY OF LEFT SHOULDER PROBLEMS BEFORE DECEMBER 2017. RE-INJURY PER PATIENT REPORT IN OCTOBER OF 2018 WHILE IN PHYSICAL THERAPY AFTER SURGERY. DOS JUN [address] MAXWELL DID HER SURGERY. STARTED PT APPROX 3 WEEKS AFTER SURGERY IN ABOUT JUL 2018 SHE TRIED TO TRANSITION FROM PT TO WORK CONDITIONING AND STATES SHE THINKS THE WEIGHTS WERE INCREASED TOO FAST AND SHE RE-INJURED HER SHOULDER IN OCTOBER 2018. SHE DID A FCA IN PAIN LATER THAT MONTH. SHE STATES SHE GOT TO THE POINT SHE COULDN'T USE HER ARM AT ALL SO SHE WENT BACK TO DR. 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 - Pain L shoulder Pain Intensity (Out of 10): 2 - Objective THIS PATIENT AMBULATES INDEP'LY INTO PT WITHOUT ANY ASSISTIVE DEVICES OR GROSS DEVIATIONS NOTED. SHE HOLDS HER ARM STILL AGAINST HER SIDE THROUGHOUT MOST OF THE SESSION. RIGHT SHOULDER ROM IS FULL AND RIGHT UE STRENGTH IS 5/5 WITH MMT'ING. LEFT UPPER TRAP AREA IS PUFFY AND TENDER. SHE ALSO HAS TENDERNESS WITH PALPATION OF THE ANTERIOR ASPECT OF THE LEFT SHOULDER AND INTO THE BICEPS REGION. SHE HAS DECREASED LIGHT TOUCH SENSATION OF THE ENTIRE LUE REPORTING DULL AND TNGLY FEELINGS WITH TESTING. HER SITTING POSTURE IS POOR WITH SLOUCHED LOW BACK, FORWARD HEAD AND ROUNDED SHOULDERS. ACTIVE CORRECTION OF HER POSTURE INCREASES C/O LEFT SHOULDER PAIN. CERVICAL ROM IS WFL. AROM OF LEFT SHLD IN SITTING: FLEX 131 DEG, ABD 62 DEG, IR/ER W/50 DEG ABD 35 DEG/54 DEG. LEFT UE STRENGTH: SHOULDER 2+/5, ELBOW FLEX 3+/5, ELBOW EXT 3+/5, FOREARM, WRIST AND HAND 4-/5. I PROCEEDED CAREFULLY WITH ALL TESTING AND PATIENT TOLERATED WELL. - Goals Goal 1:: DECREASE C/O LEFT UE PAIN Goal Time Frame: 4-6 Weeks Goal 2:: IMPROVE LEFT UE FUNCTIONAL ROM TO EASE ADLS Goal Time Frame: 4-6 Weeks Goal 3:: IMPROVE LEFTU UE FUNCTIONAL STRENGTH TO HELP SUCCESSFULLY TRANSITION BACK TO WORK Goal Time Frame: 4-6 Weeks Goal 4:: INDEP HEP FOR CONTINUED IMPROVEMENT ONCE FORMAL PHYSICAL THERAPY CONCLUDES. Goal Time Frame: 4-6 Weeks - Rehabilitation Potential Rehabilitation Potential: Fair - Anticipated Interventions Patient/Client Instruction: Educate patient on: Condition, Plan of Care, Risk Factors, Benefits of Fitness Program For the Purpose of:: To improve self management Therapeutic Exercise to Include: Strength training, Postural training, Flexibilty training, Passive ROM, Active ROM, Scapular Strength/Stabilization For the Purpose of:: To decrease pain, To increase ROM, To improve muscle performance and motor function, To increase tolerance to activity/condition/position, To improve performance and independence with ADL's, To improve ability of physical actions for home/community/work/leisure TENS: Yes Cryotherapy (ice pack, ice massage): Yes Thermo therapy (hot pack): Yes Ultrasound (thermal/non thermal): Yes - DOUBLE CHECK FOR CONTRAINDICATIONS FIRST For the Purpose of:: To decrease pain, To decrease swelling/inflammation, To increase ROM, To improve nutrient delivery to tissue Thank you for the opportunity to evaluate your patient. For Medicare and Medicare HMO plans, please review the plan of care and approve it. It will need to be FAXED BACK to us at [phone] for Medicare purposes. For Medicare only, by signing this I certify the plan of care. Please let me know if there are questions or concerns regarding this plan of care. Physician Si gnature: Date:
--- NOTE | 2019-01-30 11:06 | HP.PTREVAL ---
Sergio Spaulding, DO, It has been my pleasure to treat ADRIANO CAMPO over the last 11 visits for LEFT SHOULDER SUPERIOR GLENOID LABRUM LESION AND SPRAIN.. Please see the progress note below for an update on the physical therapy plan of care! Subjective: THE FOLLOWING PROGRESS NOTE INFORMATION IS FROM 01/23/19: PATIENT REPORTS HER CONDITION GETS DEPRESSING BUT SHE IS TRYING TO BE POSITIVE. STARTED WALKING ON THE TREADMILL LAST MONDAY EVERYDAY AND IT IS STARTING TO HELP HER FEEL BETTER. HAS A TREADMILL AT HOME. HAS A MEMBERSHIP AT THE [employer] TO USE THE TRACK AND MACHINES. HASN'T USED IT ALL YEAR. STATES SHE HAS BEEN SORE FROM THE EX SESSIONS BUT BETTER OVER-ALL. STATES SHE DOES NOT FEEL LIKE SHE HAS OVER DONE IT IN THERAPY AT ALL BUT HAS A FEAR OF ADDING WEIGHTS AND REACHING AWAY FROM HER BODY WITH IT. Objective/Function: PATIENT IS CONTINUING TO MAKE SLOW PROGRESS IN TERMS OF LEFT UE STRENGTH AND ROM. SHE IS PLEASANT AND COOPERATIVE TO WORK WITH. SHE IS EXPRESSING A LOT OF QUESTIONS AND CONCERNS TODAY ABOUT WHEN AND IF SHE WILL BE ABLE TO GET BACK TO HER JOB. SHE PLANS TO DISCUSS WITH DR. SPAULDING 02/01/19. SEATED AROM LEFT SHOULDER: FLEX 151 DEG. ABD 81 DEG. SUPINE PROM: FLEX 162 DEG. ABD 125 DEG. SUPINE: IR 70 DEG. ER 59 DEG. IR AND ER MEASURED WITH 60 DEG ABD. LEFT SHOULDER STRENGTH: FLEX 2+/5,. ABD 2+/5. ER 2+/5. IR 3-/5. I PROCEEDED CAREFULLY WITH ALL TESTING AGAINI TODAY AND PATIENT TOLERATED WELL. CASE CONFERENCE WITH [facility] [employer] TODAY. Plan Plan: THIS PT REQUESTED PATIENT GET NEW PT ORDER FROM DR. SPAULDING AT FOLLOW UP 02/01/19 IF FURTHER PT IS RECOMMENDED. CONTINUE TO SLOWLY PROGRESS LEFT UE ROM, STRETCHING AND STRENGTHEING TOLERATED. Goals Goal 1:: DECREASE C/O LEFT UE PAIN Goal Time Frame: 4-6 Weeks Goal 2:: IMPROVE LEFT UE FUNCTIONAL ROM TO EASE ADLS Goal Time Frame: 4-6 Weeks Goal 3:: IMPROVE LEFTU UE FUNCTIONAL STRENGTH TO HELP SUCCESSFULLY TRANSITION BACK TO WORK Goal Time Frame: 4-6 Weeks Goal 4:: INDEP HEP FOR CONTINUED IMPROVEMENT ONCE FORMAL PHYSICAL THERAPY CONCLUDES. Goal Time Frame: 4-6 Weeks Anticipated Interventions Patient/Client Instruction: Educate patient on: Condition, Plan of Care, Risk Factors, Benefits of Fitness Program For the Purpose of:: To improve self management Therapeutic Exercise to Include: Strength training, Postural training, Flexibilty training, Passive ROM, Active ROM, Scapular Strength/Stabilization For the Purpose of:: To decrease pain, To increase ROM, To improve muscle performance and motor function, To increase tolerance to activity/condition/position, To improve performance and independence with ADL's, To improve ability of physical actions for home/community/work/leisure TENS: Yes Cryotherapy (ice pack, ice massage): Yes Thermo therapy (hot pack): Yes Ultrasound (thermal/non thermal): Yes - DOUBLE CHECK FOR CONTRAINDICATIONS FIRST For the Purpose of:: To decrease pain, To decrease swelling/inflammation, To increase ROM, To improve nutrient delivery to tissue Please do not hesitate to contact me at [phone] by phone or if you have questions or concerns regarding this new plan of care! Sincerely, Sandi Waters, PT, Cert MDT
--- NOTE | 2019-02-13 13:43 | HP.PTREVAL ---
Sergio Maxwell, DO, It has been my pleasure to treat ADRIANO CAMPO over the last 18 visits for LEFT SHOULDER SUPERIOR GLENOID LABRUM LESION AND SPRAIN.. Please see the progress note below for an update on the physical therapy plan of care! Subjective: I CAN RAISE MY ARM HIGHER AND I'M USING IT MORE. PATIENT REPORTS SHE ACTUALLY DIDN'T HAVE AN JING'T WITH DR. MAXWELL Jan. REPORTS SHE HAD A COURT HEARING TO GET APPROVAL FOR A SHOULDER INJECTION FEB 08 2019. SHE IS AWAITING APPROVAL FOR FURTHER TREATMENTS. CONTINUES TO HAVE LEFT SHOULDER PAIN (MAINLY IN THE FRONT) THAT IS CONSTANT AND RANGING 2-5/10 NOW. NO NUMBNESS OR TINGLING. PATIENT REPORTS SHE IS CONFIDENT IN HOW TO DO ALL OF HER HOME EX'S NOW AND SHE HAS WHAT SHE NEEDS TO DO THEM (WEIGHTS AND BANDS). Objective/Function: UPON EXAM TODAY THERE IS VERY MINIMAL IMPROVEMENT IN LUE FUNCTION SINCE LAST RE-CHECK AND SHE STILL HAS SIGNIFICANTLY DECREASED LUE ROM AND STRENGTH BUT PATIENT REPORTS SHE IS ABLE TO USE HER ARM A LITTLE MORE. HER ROM HAS IMPROVED SIGNIFICANTLY SINCE INITIAL EVAL BUT STILL HAS SIGNIFICANT LUE DYSFUNCTION. UPON EXAM TODAY: SEATED AROM LEFT SHOULDER: FLEX 152 DEG. ABD 89 DEG. SUPINE PROM: FLEX 161 DEG. ABD 131 DEG. SUPINE: IR 69 DEG. ER 67 DEG. IR AND ER MEASURED WITH 60 DEG ABD. LEFT SHOULDER STRENGTH: FLEX 2+/5,. ABD 2+/5. ER 2+/5. IR 3-/5. PHYSICIAN RE-CHECK RECOMMENDED. Plan Plan: HOLD PT UNTIL FURTHER ORDERS RECEIVED. PATIENT IS AGREEABLE. Goals Goal 1:: DECREASE C/O LEFT UE PAIN Goal Time Frame: 4-6 Weeks Goal Progress: Progressing Goal 2:: IMPROVE LEFT UE FUNCTIONAL ROM TO EASE ADLS Goal Time Frame: 4-6 Weeks Goal Progress: Progressing Goal 3:: IMPROVE LEFTU UE FUNCTIONAL STRENGTH TO HELP SUCCESSFULLY TRANSITION BACK TO WORK Goal Time Frame: 4-6 Weeks Goal Progress: Progressing Goal 4:: INDEP HEP FOR CONTINUED IMPROVEMENT ONCE FORMAL PHYSICAL THERAPY CONCLUDES. Goal Time Frame: 4-6 Weeks Goal Progress: Progressing Anticipated Interventions Patient/Client Instruction: Educate patient on: Condition, Plan of Care, Risk Factors, Benefits of Fitness Program For the Purpose of:: To improve self management Therapeutic Exercise to Include: Strength training, Postural training, Flexibilty training, Passive ROM, Active ROM, Scapular Strength/Stabilization For the Purpose of:: To decrease pain, To increase ROM, To improve muscle performance and motor function, To increase tolerance to activity/condition/position, To improve performance and independence with ADL's, To improve ability of physical actions for home/community/work/leisure TENS: Yes Cryotherapy (ice pack, ice massage): Yes Thermo therapy (hot pack): Yes Ultrasound (thermal/non thermal): Yes - DOUBLE CHECK FOR CONTRAINDICATIONS FIRST For the Purpose of:: To decrease pain, To decrease swelling/inflammation, To increase ROM, To improve nutrient delivery to tissue Please do not hesitate to contact me at [phone] by phone or if you have questions or concerns regarding this new plan of care! Sincerely, Sandi Waters, PT, Cert MDT
--- NOTE | 2019-03-28 14:08 | HP.PTREVAL ---
Sergio Spaulding, DO, It has been my pleasure to treat ADRIANO CAMPO over the last 19 visits for LEFT SHOULDER SUPERIOR GLENOID LABRUM LESION AND SPRAIN.. Please see the progress note below for an update on the physical therapy plan of care! Subjective: PATIENT REPORTS SHE REFERRED HERSELF FOR A SECOND OPINION WITH DR. SANCHEZ ON Monday03/26/19. STATES THAT THE TESTING HE DID ON IT AGGREVATED IT. PRESCRIBED CELEBREX. ALSO SAW DR. SPAULDING 03/06/19 AND REC'D LEFT SHLD CORTISONE SHOT WITH NO LASTING BENEFIT (IT IS BACK TO WHERE IT WAS) AND ADDITIONAL PT ORDERED. DR. SPAULDING IS KEEPING HER OFF WORK UNTIL 04/04/19. [address]IENT [address]. SPAULDING SEE'S HER EVENTUALLY BEING ABLE TO GO BACK TO HER SAME JOB AND SHE DOES NOT THINK SHE WILL BE ABLE TO. PATIENT REPORTS DR. SANCHEZ ORDERED POOL THERAPY AND A CONTRAST MRI OF HER LEFT SHOULDER AND IS AWAITING FOR APPROVAL. PATIENT REPORTS SHE HAS CONTINUED TO DO HER HEP AND HER SHOULDER IS ABOUT THE SAME NOW IT WAS WHEN SHE STOPPED PT ABOUT 6 WEEKS AGO. PATIENT REPORTS SHE HAS DOCTORS ORDERS RESTICTING HER FROM LIFTING MORE THAN 20 LBS. Objective/Function: UPON EXAM TODAY: SEATED AROM LEFT SHOULDER: FLEX 156 DEG. ABD 82 DEG. SUPINE PROM: FLEX 16 DEG. ABD 112 DEG. SUPINE: IR 73 DEG. ER 70 DEG. IR AND ER MEASURED WITH 60 DEG ABD. LEFT SHOULDER. PATIENT WITH EMPTY END-FEEL (PAINFULL END RANGE) WITH LEFT ALL LEFT SHOULDER ROM TESTING. STRENGTH: FLEX 2+/5,. ABD 2+/5. ER 2+/5. IR 3-/5. SIMILAR TEST FINDINGS COMPARED TO LAST PT VISIT. PATIENT IS A GOOD CANDIDATE FOR TRIAL OF AQUATIC THERAPY Plan Plan: AQUATIC THERAPY FOR SCAPULAR STRENGTHENING AND LEFT SHOULDER ROM, STRETCHING AND STRENGTHENING TOLERATED TO HELP MEET SET GOALS. PATIENT AGREEABLE IF COVERED BY INSURANCE. OTHERWISE WE WILL CONTINUE TO SLOWLY PROGRESS LEFT UE ROM, STRETCHING AND STRENGTHEING RAY ON LAND. Goals Goal 1:: DECREASE C/O LEFT UE PAIN Goal Time Frame: 4-6 Weeks Goal Progress: Progressing Goal 2:: IMPROVE LEFT UE FUNCTIONAL ROM TO EASE ADLS Goal Time Frame: 4-6 Weeks Goal Progress: Progressing Goal 3:: IMPROVE LEFTU UE FUNCTIONAL STRENGTH TO HELP SUCCESSFULLY TRANSITION BACK TO WORK Goal Time Frame: 4-6 Weeks Goal Progress: Progressing Goal 4:: INDEP HEP FOR CONTINUED IMPROVEMENT ONCE FORMAL PHYSICAL THERAPY CONCLUDES. Goal Time Frame: 4-6 Weeks Goal Progress: Progressing Anticipated Interventions Patient/Client Instruction: Educate patient on: Condition, Plan of Care, Risk Factors, Benefits of Fitness Program For the Purpose of:: To improve self management Therapeutic Exercise to Include: Strength training, Postural training, Flexibilty training, Passive ROM, Active ROM, Scapular Strength/Stabilization For the Purpose of:: To decrease pain, To increase ROM, To improve muscle performance and motor function, To increase tolerance to activity/condition/position, To improve performance and independence with ADL's, To improve ability of physical actions for home/community/work/leisure TENS: Yes Cryotherapy (ice pack, ice massage): Yes Thermo therapy (hot pack): Yes Ultrasound (thermal/non thermal): Yes - DOUBLE CHECK FOR CONTRAINDICATIONS FIRST For the Purpose of:: To decrease pain, To decrease swelling/inflammation, To increase ROM, To improve nutrient delivery to tissue Please do not hesitate to contact me at [phone] by phone or if you have questions or concerns regarding this new plan of care! Sincerely, Sandi Waters, PT, Cert MDT
--- NOTE | 2019-05-06 08:22 | HP.PTDCSUM_ITS ---
HP - PT D/C Summary It has been my pleasure to treat ADRIANO CAMPO under orders from Sergio Spaulding DO, for the diagnosis of LEFT SHOULDER SUPERIOR GLENOID LABRUM LESION AND SPRAIN. for a total of 30 visit(s). Discharge Date: 05/03/19 Please see the following information for a summary of their discharge status. - Subjective Subjective: Pt. reports being 40% better overall. She is awaiting results of another imaging on her shoulder as well. Pt. continues to have increased pain with lifting/reaching overhead. Pt. has no N/T, but is still having difficulty sleeping at night. Pt. reports aquatic therapy was slightly helpful, but was still painfull while doing it. - Pain L shoulder Pain Intensity (Out of 10): 4 - Overall Improvement % Improvement: 40 - Objective Objective/Function: PROM: Pt. has full ROM with mild increase in symptoms at end ranges of fleixon, abd, and ER/IR at 90deg. ROM: Flexion 165deg, abd 88deg increase NW, functional IR L5 increase NE, functional ER C3 increase NW. MMT: PT. has 4+/5 strength with flexion increase NW, abd 4/5 icnrease NW, ER 4+/5 increase NW, IR 4+/5 increase NW. I talked to about pathology of her shoulder. Pt. reports exercises seem to make her shoulder worse. Pt. is still having pain with sleeping and most ADLs are painful. Pt. describes pain at bicpiral groove, radiating down the anterior aspect of her arm. Pt. has good sup/pro as well. - Goals Goal 1:: DECREASE C/O LEFT UE PAIN Goal Progress: Progressing Goal 2:: IMPROVE LEFT UE FUNCTIONAL ROM TO EASE ADLS Goal Progress: Progressing Goal 3:: IMPROVE LEFTU UE FUNCTIONAL STRENGTH TO HELP SUCCESSFULLY TRANSITION BA CK TO WORK Goal Progress: Progressing Goal 4:: INDEP HEP FOR CONTINUED IMPROVEMENT ONCE FORMAL PHYSICAL THERAPY CONCLUDES. Goal Progress: Progressing - Plan Plan: Pt to be DC to physician at this point in time due to still having pain after PT. Pt. awaiting results of new imaging. - D/C Information Discharge Comments: Pt. was seen for her L shoulder pain for 30 visits, both initially on land then in aquatic setting. Pt. is still having symptoms and is awaiting results from new arthorogram. Pt. reports strengthening exercises are painful kody at this point in time. She will be DC from PT back to physician this date. If there are questions or concerns regarding this patient's physical therapy, please feel free to call me at [phone]. Thank you for the referral of this patient. Sincerely, RANGEL AlanisT
--- NOTE | 2019-05-24 16:54 | HP.PTREVAL ---
Sergio Spaulding, DO, It has been my pleasure to treat ADRIANO CAMPO over the last 31 visits for LEFT SHOULDER SUPERIOR GLENOID LABRUM LESION AND SPRAIN.. Please see the progress note below for an update on the physical therapy plan of care! Subjective: HAD ARTHROGRAM AND DR. ALFARO RECOMMENDS TOTAL SHOULDER REPLACEMENT IN THE FUTURE. ALSO RECOMMENDED NO LIFTING > 10 LBS AND NO REACHING WITH WEIGHT. STATES DR. SPAULDING THINKS IT IS INFLAMMATION AND APPROVAL RECEIVED FOR CORTISONE INJECTION IN [place]. STATES DR. SPAULDING IS STILL PHYSICIAN OF RECORD AND DR. SPAULDING AND DR. SHULTZ ARE GOING TO REVIEW ARTHROGRAM TOGETHER TO MAKE FURTHER RECOMMENDATIONS. PATIENT REPORTS INJECITON IS PENDING JUN 18. STATES LAST INJECTION IN HER LEFT SHOULDER HAD NO EFFECT. PATIENT DENIES ANY SIGNIFICANT LEFT UE CHANGES SINCE LAST VISIT 05/03/20. PATIENT REPORTS HER RIGHT SHOULDER IS STARTING TO HURT FROM COMPENSATING FOR LEFT. PATIENT REPORTS DR. ALFARO SAID NO LIFTING > 10 LBS AND NOTHING AWAY FROM THE BODY BUT DR. SPAULDING SAYS 20 LB LIFTING LIMIT. PATIENT REPORTS LEFT SHLD PAIN RANGES FROM 3-6/10 NOW. Objective/Function: PATIENT HAS HAD SOME DECLINE IN ROM AND STRENGTH SINCE LAST VISIT ABOUT 3 WEEKS AGO. SHE CONTINUES TO HAVE LEFT UE PAIN AND DYSFUNCTION AND IS A GOOD CANDIDATE TO CONTINUE AQUATIC THERAPY ALONG WITH OTHER INTERVENTIONS BEING CONSIDERED. UPON EXAM TODAY: SEATED AROM LEFT SHOULDER: FLEX 155 DEG. ABD 72 DEG. SUPINE PROM: FLEX 116 DEG. ABD 112 DEG. SUPINE: IR 72 DEG. ER 70 DEG. IR AND ER MEASURED WITH 60 DEG ABD. LEFT SHOULDER. PATIENT WITH EMPTY END-FEEL (PAINFULL END RANGE) WITH ALL LEFT SHOULDER ROM TESTING. STRENGTH: FLEX 2+/5,. ABD 2+/5. ER 3-/5. IR 3-/5. Plan Plan: AQUATIC THERAPY FOR SCAPULAR STRENGTHENING AND LEFT SHOULDER ROM, STRETCHING AND STRENGTHENING TOLERATED TO HELP MEET SET GOALS. Goals Goal 1:: DECREASE C/O LEFT UE PAIN Goal Time Frame: 4-6 Weeks Goal Progress: Not Progressing Goal 2:: IMPROVE LEFT UE FUNCTIONAL ROM TO EASE ADLS Goal Time Frame: 4-6 Weeks Goal Progress: Not Progressing Goal 3:: IMPROVE LEFTU UE FUNCTIONAL STRENGTH TO HELP SUCCESSFULLY TRANSITION BACK TO WORK Goal Time Frame: 4-6 Weeks Goal Progress: Not Progressing Goal 4:: INDEP HEP FOR CONTINUED IMPROVEMENT ONCE FORMAL PHYSICAL THERAPY CONCLUDES. Goal Time Frame: 4-6 Weeks Goal Progress: Not Progressing Anticipated Interventions Patient/Client Instruction: Educate patient on: Condition, Plan of Care, Risk Factors, Benefits of Fitness Program For the Purpose of:: To improve self management Therapeutic Exercise to Include: Strength training, Postural training, Flexibilty training, Passive ROM, Active ROM, Scapular Strength/Stabilization For the Purpose of:: To decrease pain, To increase ROM, To improve muscle performance and motor function, To increase tolerance to activity/condition/position, To improve performance and independence with ADL's, To improve ability of physical actions for home/community/work/leisure TENS: Yes Cryotherapy (ice pack, ice massage): Yes Thermo therapy (hot pack): Yes Ultrasound (thermal/non thermal): Yes - DOUBLE CHECK FOR CONTRAINDICATIONS FIRST For the Purpose of:: To decrease pain, To decrease swelling/inflammation, To increase ROM, To improve nutrient delivery to tissue Please do not hesitate to contact me at [phone] by phone or if you have questions or concerns regarding this new plan of care! Sincerely, Sandi Waters, PT, Cert MDT
== END 2019-05-30 19:00 | disposition home or self-care (01) ==
LOC: PT 11:00
PROVIDERS: Family Provider Family Medicine Geriatric Medicine; PCP Family Medicine Geriatric Medicine; Referring Provider Orthopaedic Surgery; Visit Provider Orthopaedic Surgery
DX: S43.402D Unspecified sprain of left shoulder joint, subsequent encounter (principal); S43.432D Superior glenoid labrum lesion of left shoulder, subsequent encounter
CPT/HCPCS: 97110; 97113; 97140; 97162; 97530

== ENCOUNTER 2019-07-01 10:00 | Outpatient (RCR) | payer OTHER, SELFPAY ==
[2017-07-29 01:53] VITALS: BMI 25.3
--- NOTE | 2019-07-01 11:08 | HP.PTDCSUM ---
HP - PT D/C Summary It has been my pleasure to treat ADRIANO CAMPO under orders from Sergio Spaulding DO, for the diagnosis of LEFT SHOULDER SUPERIOR GLENOID LABRUM LESION AND SPRAIN. for a total of 13 visit(s). Discharge Date: Please see the following information for a summary of their discharge status. - Subjective Subjective: PATIENT REPORTS SHE HAS A COLD AND ISN'T FEELING THAT GREAT TODAY. PATIENT REPORTS NO CHANGE IN HER PAIN BUT HER ROM IS GETTING BETTER WITH THERAPY. PATIENT REPORTS INCREASED PAIN AFTER LAST SESSION PROGRESSIONS. PATIENT REPORTS SHE IS BACK TO WHERE SHE WAS IN TERMS OF PAIN BEFORE THE MOST RECENT LEFT SHLD INJECITON. F/U WITH HANS PENDING 07/16/19. PATIENT REPORTS DR. ALFARO FEELS SHE NEEDS A SHOULDER REPLACEMENT BUT SHE IS TOO YOUNG AND SHOULD NOT LIFT MORE THAN [address]. [address] SPAULDING ALSO THINKS SHE NEEDS A SHOULDER REPLACEMENT BUT NOT FOR SEVERAL YEARS AND GAVE HER A DX OF BICEPS TENDONITIS AND 20 LB LIFTING LIMIT. - Pain L Shoulder Pain Intensity (Out of 10): 3 - Overall Improvement % Improvement: 50 - Objective Objective/Function: PATIENT WAS SEEN TODAY FOR RE-ASSESSMENT OF PROGRESS TOWARD THE SET PT GOALS AND THE NEED FOR FURTHER PHYSICAL THERAPY VS READINESS FOR DISCHARGE. PATIENT HAS IMPROVED WITH PHYSICAL THERAPY IN TERMS OF ROM BUT IS STILL VERY LIMITED IN LEFT SHLD ABD ROM AND STRENGTH ALONG WITH SHLD STRENGTH IN GENERAL AND HER C/O PAIN IS NOT GETTING BETTER. UPON EXAM TODAY: CERVICAL ROM IS WFL. AROM OF LEFT SHLD IN SITTING: FLEX 158 DEG (SUPINE 155 DEG), SCAPTION 122 DEG, ABD 82, DEG IR/ER W/65 DEG ABD 64 DEG/58 DEG. LEFT UE STRENGTH: SHOULDER FLEX 3-/5, SHLD ABD 2+/5, IR 4/5, ER 3-/5. ELBOW FLEX 4/5, ELBOW EXT 4/5, FOREARM, WRIST AND HAND 4-/5. RIGHT LABOR ECONOMICS TEACHER STRENGTH 50 LBS (RIGHT HAND DOMINANT), LEFT LABOR ECONOMICS TEACHER 38 LBS. - Goals Goal 1:: DECREASE C/O LEFT SHLD PAIN Goal Progress: Not Progressing Goal 2:: IMPROVE LEFT UE FUNCTIONAL ROM TO EASE ADLS Goal Progress: Progressing Goal 3:: IMPROVE LEFTU UE FUNCTIONAL STRENGTH TO HELP SUCCESSFULLY TRANSITION BACK TO WORK Goal Progress: Progressing Goal 4:: INDEP HEP FOR CONTINUED IMPROVEMENT ONCE FORMAL PHYSICAL THERAPY CONCLUDES. Goal Progress: Progressing - Plan Plan: D/C TO FOLLOW UP WITH PHYSICIAN. - D/C Information If there are questions or concerns regarding this patient's physical therapy, please feel free to call me at [phone]. Thank you for the referral of this patient. Sincerely, Sandi Waters, PT, Cert MDT
== END 2019-07-01 19:00 | disposition home or self-care (01) ==
LOC: PT 10:00
PROVIDERS: Family Provider Family Medicine Geriatric Medicine; PCP Family Medicine Geriatric Medicine; Referring Provider Orthopaedic Surgery; Visit Provider Orthopaedic Surgery
DX: S43.402D Unspecified sprain of left shoulder joint, subsequent encounter (principal); S43.432D Superior glenoid labrum lesion of left shoulder, subsequent encounter; M75.42 Impingement syndrome of left shoulder; M65.812 Other synovitis and tenosynovitis, left shoulder
CPT/HCPCS: 97113; 97164

== ENCOUNTER → 2019-11-05 15:46 | Outpatient (CLI) | payer OTHER, SELFPAY ==
[2017-07-29 01:53] VITALS: BMI 25.3
[2019-11-05 16:35] LABS: Absolute Lymphocyte Count 2.17 X10^3/uL (0.83-4.51); Absolute Neutrophil Count 3.6 X10^3/uL (2.0-7.7); Basophil# 0.02 X10^3/uL; Basophil% 0.3 % (0-1); Eosinophil# 0.13 X10^3/uL; Hematocrit 42.9 % (37-47); Hemoglobin 13.8 g/dL (12.0-15.0); Lymphocyte # 2.17 X10^3/ul (4.0); Lymphocyte % 33.9 % (19-41); Mean Corp Hgb Conc 32.2 g/dL (32-36); Mean Corpuscular Hgb 27.6 pg (27.0-32.0); Mean Corpuscular Volume 85.8 fL (81-99); Mean Platelet Vol. 9.7 fl (6.2-12.0); Monocyte# 0.47 X10^3/uL; Monocyte% 7.3 % (0-10); NRBC Flagged by Analyzer 0 % (0-5); Neutrophil # 3.59 X10^3/uL (2.7-7.7); Platelet Count 254 K/mm3 (150-450); RBC Distribution Width CV 12.5 % (11.6-14.6); White Blood Count 6.4 K/mm3 (4.4-11.0)
[2019-11-05 16:51] LABS: Anion Gap 7 (5-15); BUN 18 mg/dL (7-18); CPK Total, Creatine Kinase 51 U/L (26-192); Calcium,Total 8.6 mg/dL (8.5-10.1); Chloride 106 mmol/L (98-107); Creatinine, Serum 0.78 mg/dL (0.55-1.02); EST Glomerular Filtration Rate 79 mL/min (>60); Est Glom Filt Rate - Afr Amer 96 mL/min (>60); Glucose 89 mg/dL (74-106); Potassium 3.9 mmol/L (3.5-5.1); Sodium Level 142 mmol/L (136-145)
== END ==
PROVIDERS: PCP Family Medicine Geriatric Medicine; Visit Provider Family Medicine Geriatric Medicine
DX: G83.9 Paralytic syndrome, unspecified (principal)
CPT/HCPCS: 36415; 80048; 82550; 85025

== ENCOUNTER → 2019-11-05 16:11 | Outpatient (CLI) | payer OTHER, SELFPAY ==
[2017-07-29 01:53] VITALS: BMI 25.3
--- NOTE | 2019-11-05 16:15 | VDLE_ITS ---
Reason For Study: edema RIGHT LEFT GSV is normal. CFV is compressible, spontaneous, phasic, CFV is compressible, spontaneous, phasic, competent, and demonstrates normal competent and demonstrates normal augmentation. augmentation. FV is compressible, spontaneous, phasic, FV is compressible, spontaneous, phasic, competent and demonstrates normal competent and demonstrates normal augmentation. augmentation. POP V is compressible, spontaneous, phasic, POP V is compressible, spontaneous, phasic, competent and demonstrates normal competent and demonstrates normal augmentation. augmentation. T/P Trunk is compressible. T/P Trunk is compressible. PTV is compressible. PTV is compressible. LT PerV is compressible. RT PerV is compressible. GSV is harvested. Hypoechoic area behind the knee measuring .79 x 2.14 cm. Area is nonvascular. Procedure Exam performed in department. The exam was diagnostic. A preliminary report was called and/or faxed to Dr. Davison. Interpretation Summary Deep veins of the lower extremities are bilaterally patent and compressible segmentally. There is no evidence of deep vein thrombosis on either side. Valvular competence appears intact within the proximal deep venous systems bilaterally. The right great saphenous vein appears patent and compressible segmentally. The left great saphenous vein is absent, having been previously harvested. A non-vascular, hypoechoic structure is noted in the right popliteal space, measuring 0.79 cm x 2.14 cm. This may represent a popliteal cyst. Clinical correlation is advised. Ordering Physician: Qamar Davison Performed By: Isra Regan RVT
--- NOTE | 2019-11-05 16:36 | RAD_ITS ---
STUDY: X-RAY - LUMBAR SPINE REASON FOR EXAM: Female, 64 years old. WEAKNESS IN HER LEG WITH EDEMA. TECHNIQUE: 3 view(s) of the lumbar spine were obtained. COMPARISON: MRI lumbar spine May 12, 2012 FINDINGS: Normal lumbar lordosis. There is no substantial scoliosis. There is a normal alignment of the vertebrae. Normal vertebral bodies and endplates. Normal disc space heights. The soft tissue structures are unremarkable. RAD/Lumbar Spine 2 or 3 Views IMPRESSION: Normal x-ray examination of the lumbar spine. Electronically Signed: Neri Saenz MD at 17:19 EDT , Service support ,
== END ==
PROVIDERS: PCP Family Medicine Geriatric Medicine; Visit Provider Family Medicine Geriatric Medicine
DX: R60.9 Edema, unspecified (principal); G83.10 Monoplegia of lower limb affecting unspecified side
CPT/HCPCS: 72100; 93970

== ENCOUNTER → 2019-11-12 09:51 | Outpatient (CLI) | payer OTHER, SELFPAY ==
[2017-07-29 01:53] VITALS: BMI 25.3
--- NOTE | 2019-11-12 09:59 | ART_ITS ---
Reason For Study: Edema Procedure A bilateral lower extremity continuous wave Doppler with analog waveform analysis and ankle brachial indexes. Left Segmental Pressures Left brachial= 136mmHg. Left posterior tibial artery = 173mmHg. Left dorsalis pedis artery = 170mmHg. Left digit = 125 mmHg. The left dorsalis pedis waveforms are triphasic. The left posterior tibial artery waveforms are triphasic. Right Segmental Pressures Right brachial= 146mmHg. Right posterior tibial artery = 180mmHg. Right dorsalis pedis artery = 180mmHg. Right digit = 118 mmHg. The right dorsalis pedis waveforms are triphasic. The right posterior tibial artery waveforms are triphasic. Indices The right ankle brachial index by the dorsalis pedis is 1.23. The right ankle brachial index by the posterior tibial artery is 1.23. The right digital-brachial index is 0.81. The left ankle brachial index by the dorsalis pedis is 1.16. The left ankle brachial index by the posterior tibial artery is 1.18. The left digital-brachial index is 0.86. Interpretation Summary Triphasic Doppler waveforms are noted at ankle level bilaterally. Resting ankle-brachial indices are normal bilaterally. Digital-brachial indices are normal bilaterally. There is no evidence of significant arterial occlusive disease in the lower extremities bilaterally. Ordering Physician: Qamar Davison Referring Physician: Qamar Davison Chi Performed By: Eufemia Scott RVT
== END ==
PROVIDERS: PCP Family Medicine Geriatric Medicine; Referring Provider Family Medicine Geriatric Medicine; Visit Provider Family Medicine Geriatric Medicine
DX: R60.9 Edema, unspecified (principal)
CPT/HCPCS: 93922

== ENCOUNTER → 2019-11-18 10:59 | Outpatient (CLI) | payer OTHER, SELFPAY ==
[2019-11-18 10:56] VITALS: BMI 26.9
--- NOTE | 2019-11-18 10:59 | RAD_ITS ---
STUDY: X-RAY - LEFT KNEE REASON FOR EXAM: Female, 64 years old. CHRONIC PAIN AND CYSTS, NKI TECHNIQUE: 4 view(s) of the knee. COMPARISON: None. FINDINGS: Normal visualized distal femur. Normal visualized proximal tibia and fibula. Normal proximal tibiofibular articulation. Normal medial femorotibial compartment. Normal lateral femorotibial compartment. Normal patellofemoral articulation. The soft tissue structures are unremarkable. RAD/Knee 4 or More Views IMPRESSION: Normal x-ray examination of the knee. Electronically Signed: Segundo Moffett, at 13:44 EDT , Service support ,
--- NOTE | 2019-11-18 11:05 | RAD_ITS ---
STUDY: X-RAY - RIGHT KNEE REASON FOR EXAM: Female, 64 years old. CHRONIC PAIN AND CYSTS, NKI TECHNIQUE: 4 view(s) of the knee. COMPARISON: None. FINDINGS: Normal visualized distal femur. Normal visualized proximal tibia and fibula. Normal proximal tibiofibular articulation. Normal medial femorotibial compartment. Normal lateral femorotibial compartment. Normal patellofemoral articulation. The soft tissue structures are unremarkable. RAD/Knee 4 or More Views IMPRESSION: Normal x-ray examination of the knee. Electronically Signed: Segundo Moffett, at 13:43 EDT , Service support ,
== END ==
PROVIDERS: PCP Family Medicine Geriatric Medicine; Referring Provider Orthopaedic Surgery; Visit Provider Orthopaedic Surgery
DX: M25.561 Pain in right knee (principal); M25.562 Pain in left knee
CPT/HCPCS: 73564

== ENCOUNTER 2019-11-20 09:55 | Outpatient (RCR) | payer OTHER, SELFPAY ==
[2019-11-18 11:05] VITALS: BMI 25.3
--- NOTE | 2019-11-27 11:24 | HP.FCE ---
Floor (Occasional 1-33% of Day): 20# Floor (Frequent 34-66% of Day): 10# Floor (Constant 67-100% of Day): NA Floor PDL: Light Knee (Occasional 1-33% of Day): 20# Knee (Frequent 34-66% of Day): 10# Knee (Constant 67-100% of Day): Na Knee PDL: Light Waist (Occasional 1-33% of Day): 15# Waist (Frequent 34-66% of Day): 8# Waist (Constant 67-100% of Day): NA Waist PDL: Sedentary-Light Shoulder (Occasional 1-33% of Day): 5# Shoulder (Frequent 34-66% of Day): NA Shoulder (Constant 67-100% of Day): NA Shoulder PDL: No Ability Overhead (Occasional 1-33% of Day): NA Overhead (Frequent 34-66% of Day): NA Overhead (Constant 67-100% of Day): NA Overhead PDL: No Ability Comments: pt demo with good lifting mechanics during the lifts Bending: Frequent Ability (34-66% of day) Squatting: Occasional Ability (1-33% of day) Kneeling: Occasional Ability (1-33% of day) Reaching out: Occasional Ability (1-33% of day) Comments: low occasional ability Reaching up: Occasional Ability (1-33% of day) Comments: low occasional ability Sitting: Frequent Ability (34-66% of day) Walking: Frequent Ability (34-66% of day) Standing: Occasional Ability (1-33% of day) Duration Sedentary Sedentary Light Light Light Medium Medium Medium Heavy Very Heavy Heavy Occasional (0-33% of day) Frequent (34-66% of day) Constant (67-100% of day) 10 # Negligible Negligible 15 # 8 # Negligible 20 # 10# Negli. 35 # 18 # 7 # 50 # 25 # 10 # 75 # 100 # >100 # 38 # 50 # >50 # 15 # 20 # >20 # Height: 1.6 m Weight:: 68.039 kg Hand Dominance: right Medical History Including Restrictions: This pt was until she had injury to right UE in 2000. Pt states she was working and her right shoulder dislocation. Pt states she underwent sx in 2000 capsular shrinkage, distal clavicle resection. Pt states she went back to sx in 2001 for exploratory sx and then in 2002 pt states she underwent a capsular shift and reconstruction of her right shoulder. pt states she also had a left shoulder sx for a left labral tear. pt did undergo physical therapy. pt states she was given a t-band HEP for bilateral shoulders but does not do the exercises as she states the exercises make her shoulder hurts. pt states she does walk - Dr. Spaulding for left shoulder restriction for 20# and Dr. Collins put her on a 10# lift restriction with no lift away from body no reaching with any weight . restriction from also has placed pt on a no overhead work, no repetitive pushing/pulling or twisting. Diagnoses: labral tear of left shoulder dx 2018. biceps pain 2019. bicipital tendinitis. Adhesive capsulitis left shoulder. diverticulitis 2017 controlled by medication. pinto cyst bilateral knees 2019. pes anserine bursitis bilateral knees 2019. Fatty liver dx 2017. Osteoarthrosis left shoulder dx in 2019. edema in LE use of compression socks to control. Depression dx in 2015 controlled by sabianism session no medication. Polymyositis. Vit. B disorder Symptoms: bilateral shoulder pain. Weakness in UE. knee pain pt feels its from the pinto cyst. Pain: Pt states she has bilateral shoulder pain 2/10 at rest. Pt does take Celebrex for pain every other day. pt states the more she uses her shoulders the more they hurt. 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 Pt states her job duties include lifting, carry, handling 50#, climbing ladders, standing/walking for 10-hour shifts. pt states she does work 40 hours plus overtime. pts last day of work was 2018. pt states she worked at [employer] [id number]. [employer] 2014- for 6 months. Pt was employed at [employer] 1993- May 2014. pt states she retired from [employer]. Behavioral: pt was cooperative throughout assessment ADLS: Pt states she lives with spouse in ranch home with three steps no railing how may pt has 14 steps to basement. Pt states ind. with bathing and dressing tasks. pt states she can meal prep and cooking, pt states she is ind. with laundry. Pt states she is ind. with vacuuming/sweeping, IND with driving- pt does grocery shopping. states assists with carry heavy objects (nothing 15-20#) and yard work. ROM: pt demo ROM all WFL- slow to reach full shoulder ROM due to reported discomfort. Strength: pt demo UB 4-/5 grossly throughout. bilateral hips flex 4/5. kneee ext/flex 5/5 Right Inspector Fibrous Wallboard Strength Average: 56.66 Right Inspector Fibrous Wallboard Strength Percentile: 50% Left Inspector Fibrous Wallboard Strength Average: 26.66 Left Inspector Fibrous Wallboard Strength Percentile: 3% Right Lateral Pinch Average: 11.33 Right Lateral Pinch Percentile: 50% Left Lateral Pinch Average: 10.66 Left Lateral Pinch Percentile: 50% Right Tripod Pinch Average: 10.66 Right Tripod Pinch Percentile: 50% Left Tripod Pinch Average: 8.00 Left Tripod Pinch Percentile: 25% Sensation: with monofilament testing bilateral hands tested at 2.83 normal sensation Fine Motor: 9-hole peg test. right 17.19 sec. =90%. left 18.0 sec. = 90% Balance: no noted loss of balance during assesment Bending: pt demo the ability to bend forward three times, ten times and ten times rapidly. Pts heart rate begining 82 during 92 and after 92. Pt can bend forward on a frequent ability Squatting: Pt demo the ability to squat three times, ten times and ten times rapidly. pts resting hear rate was 86 increase to 101 increase to 122 with tasks pt states back of knees pain with tasks 5/10. Pt can squat on an occasional ability. Kneeling: pt demo the ability to kneel three times, ten times and ten times rapidly. pts heart rate at rest 82 and following activity 133 after 2 min heart rate decreased to 77 beats per min. pt states all over pain 5/10. pt can kneel on a occasional ability Reaching out/up: pt demo the ability to reach out three times, ten times and ten times rapidly. pt heart rate increase form 62 to 87 at end of task. pt report over all pain 5/10. pt can reach out on low occasional ability. pt demo the ability to reach up three times, ten times and ten times rapidly. pts heart rate at rest 82 and following 92. pt can reach up on low occasional ability Walking: pt ambulated at fast pace for 15 min pt report some discomfort in left shoulder- heart rated 93. pt can ambulate on frequent ability Standing: pt demo the ability to stand for 3 min with shifting body weight. pt can stand on a occasional ability Sitting: pt demo the ability to sit for 60 min with no apparent or expressed discomfort. pt can sit on a frequent ability Climbing Stairs: pt demo the ability to ascend and descend ten steps with use of one rail with a reciprocal step pattern. Floor Lift: Pt demo the ability to lift 20# maximally from this level and 10# comfortably. Knee Lift: Pt demo the ability to lift 20# maximally from this level and 10# comfortably. Waist Lift: Pt demo the ability to lift 15# maximally from this level and 8# comfortably. Shoulder Lift: Pt demo the ability to lift 5# maximally from this level Overhead Lift: Pt demo the ability to lift 5# maximally from this level Carrying: pt demo the ability to carry 10# for 30 feet with good ability Comments: pt reported a left shoulder pain and left burning sensation on posterior shoulder/upper scapula region. pt demo good lifting mechanics with lifting tasks.
--- NOTE | 2020-02-05 15:39 | HP.OT.NRP ---
ADRIANO CAMPO was seen in my office for initial evaluation on . The following Plan of Care was established for this patient: This patient was last seen in our office 11/20/19. Pertinent comments regarding their Occupational therapy will appear below: pt seen for FCE only. At this point I will be discontinuing this patient from occupational therapy. I would be happy to see this patient again in the future if found appropriate by the physician. Thank you! Liseth Agustin, OTR/L, CHT
== END 2019-11-20 19:00 ==
LOC: OT 09:55
PROVIDERS: PCP Family Medicine Geriatric Medicine; Referring Provider Orthopaedic Surgery; Visit Provider Orthopaedic Surgery
DX: M75.42 Impingement syndrome of left shoulder (principal)
CPT/HCPCS: 97750

== ENCOUNTER → 2020-04-16 14:56 | Outpatient (CLI) | payer OTHER, SELFPAY ==
[2019-11-18 11:05] VITALS: BMI 25.3
[2020-04-16 16:46] LABS: Absolute Lymphocyte Count 1.83 X10^3/uL (0.83-4.51); Absolute Neutrophil Count 3.6 X10^3/uL (2.0-7.7); Basophil# 0.02 X10^3/uL; Basophil% 0.3 % (0-1); Eosinophils% 1.7 % (0-5); Hematocrit 41.9 % (37-47); Hemoglobin 13.4 g/dL (12.0-15.0); Lymphocyte # 1.83 X10^3/ul (4.0); Lymphocyte % 30.6 % (19-41); Mean Corpuscular Hgb 27.5 pg (27.0-32.0); Mean Platelet Vol. 10.1 fl (6.2-12.0); Monocyte# 0.47 X10^3/uL; Monocyte% 7.8 % (0-10); NRBC Flagged by Analyzer 0 % (0-5); Neutrophil # 3.55 X10^3/uL (2.7-7.7); Neutrophil % 59.3 % (47-70); Platelet Count 231 K/mm3 (150-450); RBC Distribution Width CV 12.6 % (11.6-14.6); RBC Distribution Width SD 39.6 fl (35.1-43.9); Red Blood Count 4.87 M/mm3 (4.2-5.4)
[2020-04-16 16:57] LABS: Vitamin D,25 Hydroxy 28.7 ng/mL
[2020-04-16 17:10] LABS: ALB/GLOB Ratio 1.2 RATIO (0.9-2.4); AST(SGOT) 20 U/L (15-37); Alanine Aminotransfer ALT/SGPT 24 U/L (13-56); Albumin, Serum 3.9 g/dL (3.2-5.0); Alkaline Phosphatase 98 U/L (45-117); Anion Gap 6 (5-15); BUN 17 mg/dL (7-18); BUN/Creat Ratio 21.1 RATIO (10-20); Calcium,Total 8.5 mg/dL (8.5-10.1); Chloride 107 mmol/L (98-107); Creatinine, Serum 0.81 mg/dL (0.55-1.02); EST Glomerular Filtration Rate 77 mL/min (>60); Est Glom Filt Rate - Afr Amer 93 mL/min (>60); Globulin 3.3 g/dL (2.2-4.2); Glucose 135 mg/dL (74-106); Potassium 3.7 mmol/L (3.5-5.1); Protein, Total 7.2 g/dL (6.4-8.2); Sodium Level 139 mmol/L (136-145); Thyroid Stim Hormone (TSH) 0.43 uIU/mL (0.358-3.74)
[2020-04-17 10:13] LABS: Hemoglobin A1c 5.4 % (3.8-5.6)
== END ==
PROVIDERS: PCP Family Medicine Geriatric Medicine; Visit Provider Family Medicine Geriatric Medicine
DX: E55.9 Vitamin D deficiency, unspecified (principal); R53.83 Other fatigue; E11.9 Type 2 diabetes mellitus without complications
CPT/HCPCS: 36415; 80053; 82306; 83036; 84443; 85025

== ENCOUNTER → 2020-04-23 09:20 | Outpatient (CLI) | payer OTHER, SELFPAY ==
[2019-11-18 11:05] VITALS: BMI 25.3
--- NOTE | 2020-04-23 09:31 | US_ITS ---
STUDY: ABDOMINAL ULTRASOUND - RIGHT UPPER QUADRANT REASON FOR VISIT: Female, 64 years old FATTY LIVER TECHNIQUE: Ultrasound evaluation of the right upper quadrant was performed with real-time and static guillen-scale imaging. TECHNICAL QUALITY: Adequate. COMPARISON: None. FINDINGS: Liver: The liver measures 13.9 cm. There is increased echogenicity consistent with mild degree of fatty infiltration. The bile ducts are within normal limits. There is hepatic color flow. The direction of portal flow is hepatopetal. There is no demonstrated mass lesion. Gallbladder: Normal distended gallbladder. The gallbladder wall measures 1.2 mm. There is a negative sonographic Hebert''s sign. There is no pericholecystic fluid. There are no gallstones. Common Bile Duct (C.B.D.): The common bile duct measures 5.0 mm. Pancreas: Normal size of the head, body and tail of the pancreas. There is normal echogenicity of the pancreas. There is no demonstrated pancreatic mass or cyst. Right Kidney: Normal size of the right kidney. The right kidney measures 9.3 cm x 5.6 x 4.6 cm. Normal renal cortex. The right cortex measures 1.2 cm. There is no demonstrated renal mass or cyst. There is no right hydronephrosis. IMPRESSION: Mild degree of fatty infiltration the liver. Electronically Signed: Segundo Moffett, at 12:32 EST , Service support , STUDY: ABDOMINAL ULTRASOUND - ELASTOGRAPHY REASON FOR VISIT: Female, 64 years old. Fatty infiltration of the liver. TECHNIQUE: Liver stiffness measurements were obtained on a Offermatic 85 ultrasound machine using a CA 1-7 probe following the SRU guidelines. 3 measurements were obtained using a 2-D-SWE method. The IQR/M was 12% suggesting a quality data set. TECHNICAL QUALITY: Adequate. COMPARISON: None. FINDINGS: Liver: There is no demonstrated mass lesion. Median liver stiffness measured 5.2 kPa. US/Liver IMPRESSION: Liver stiffness measures 5.2 kPa compatible with [id number] score. Electronically Signed: Segundo Moffett, at 12:34 EST , Service support ,
== END ==
PROVIDERS: PCP Family Medicine Geriatric Medicine; Referring Provider Family Medicine Geriatric Medicine; Visit Provider Family Medicine Geriatric Medicine
DX: K76.0 Fatty (change of) liver, not elsewhere classified (principal)
CPT/HCPCS: 76705; 76981

== ENCOUNTER → 2020-07-14 12:18 | Outpatient (CLI) | payer OTHER, SELFPAY ==
[2019-11-18 11:05] VITALS: BMI 25.3
--- NOTE | 2020-07-14 12:25 | RAD_ITS ---
STUDY: X-RAY - LUMBAR SPINE REASON FOR EXAM: Female, 64 years old. Low back pain, discoloration to back, no injury TECHNIQUE: 3 view(s) of the lumbar spine were obtained. COMPARISON: Comparison is made with prior study dated 11/05/2019. FINDINGS: Normal lumbar lordosis. There is no substantial scoliosis. There is a normal alignment of the vertebrae. There is diffuse demineralization with multi-level endplate spondylosis. Normal disc space heights. The soft tissue structures are unremarkable. RAD/Lumbar Spine 2 or 3 Views IMPRESSION: Degenerative changes of the spine, as detailed above. Electronically Signed: Segundo Moffett MD at 15:34 EST , Service support ,
== END ==
PROVIDERS: PCP Family Medicine Geriatric Medicine; Visit Provider Family Medicine Geriatric Medicine
DX: M54.5 Low back pain (principal)
CPT/HCPCS: 72100

== ENCOUNTER → 2020-10-14 12:27 | Outpatient (CLI) | payer OTHER, SELFPAY ==
[2019-11-18 11:05] VITALS: BMI 25.3
--- NOTE | 2020-10-14 12:30 | RAD_ITS ---
STUDY: X-RAY - THORACIC SPINE REASON FOR EXAM: Female, 65 years old. RIB PAIN TECHNIQUE: 3 view(s) of the thoracic spine were obtained. COMPARISON: None. FINDINGS: Normal kyphosis of the thoracic spine. Mild dextroscoliosis. Normal thoracic vertebrae and endplates. Normal disc space heights. The soft tissue structures are unremarkable. RAD/Thoracic Spine 3 Views IMPRESSION: Mild dextroscoliosis. Electronically Signed: Paul Jacobson MD at 16:49 EDT Tel , Service support ,
== END ==
PROVIDERS: PCP Family Medicine Geriatric Medicine; Referring Provider Family Medicine Geriatric Medicine; Visit Provider Family Medicine Geriatric Medicine
DX: R07.81 Pleurodynia (principal)
CPT/HCPCS: 72072

== ENCOUNTER → 2020-11-09 07:59 | Outpatient (CLI) | payer OTHER, SELFPAY ==
[2019-11-18 11:05] VITALS: BMI 25.3
--- NOTE | 2020-11-09 08:02 | CT_ITS ---
STUDY: CT ABDOMEN WITH CONTRAST REASON FOR EXAM: Female, 65 years old. 6 month history of left-sided abdominal pain. RADIATION DOSAGE (If Supplied By Facility): CTDIvol = ( 13.56 ) mGy, DLP = ( 266.46 ) mGycm TECHNIQUE: Transaxial images were obtained post I.V. administration of Oral and amp; IV Readi-CAT and amp; 100mL Isovue-300, and with oral contrast. Sagittal and coronal images were reconstructed. Individualized dose optimization techniques were used for this CT. COMPARISON: Comparison is made with prior study dated 02/27/2019. FINDINGS: The visualized lung bases are unremarkable. The visualized portions of the heart are within normal limits. Normal liver. Normal gallbladder and extrahepatic biliary system. Normal spleen. Normal pancreas. Normal bilateral adrenal glands. Normal right kidney. There is a 1.9 cm cyst in the anterior midportion of the left kidney. Normal visualized stomach. Normal small intestine. There are scattered colonic diverticula consistent with diverticulosis. The appendix is visualized and appears normal. There is diffuse atherosclerotic calcification of the abdominal aorta, without a demonstrated aneurysm. Normal inferior vena cava. Normal retroperitoneum. There is a small umbilical hernia containing fat. Normal osseous structures. CT/Abdomen WITH IV Contrast IMPRESSION: 1.9 semi a cyst in the anterior midportion of the left kidney. Electronically Signed: Segundo Moffett MD at 12:50 EDT , Service support ,
[2020-11-09 08:26] LABS: CREATININE FINGERSTICK 0.8 mg/dL (0.55-1.02); EGFR FINGERSTICK > 60.0000 mL/min (>60)
== END ==
PROVIDERS: PCP Family Medicine Geriatric Medicine; Referring Provider Family Medicine Geriatric Medicine; Visit Provider Family Medicine Geriatric Medicine
DX: R10.9 Unspecified abdominal pain (principal)
CPT/HCPCS: 74160; Q9967

== ENCOUNTER → 2020-11-17 13:39 | Outpatient (CLI) | payer OTHER, SELFPAY ==
[2019-11-18 11:05] VITALS: BMI 25.3
--- NOTE | 2020-11-17 13:43 | RAD_ITS ---
STUDY: X-RAY - PELVIS AND RIGHT HIP REASON FOR EXAM: Female, 65 years old. HIP PAIN TECHNIQUE: 3 views of the pelvis and hip. COMPARISON: None. FINDINGS: There is a non-specific bowel gas pattern. Normal visualized soft tissue structures. There are multiple calcified phleboliths. There is narrowing with cortical sclerosis and osteophyte formation of the sacroiliac joint consistent with degenerative osteoarthritic changes. Normal bilateral superior and inferior pubic rami. There are degenerative changes of the pubic symphysis with articular narrowing and sclerosis. Normal bilateral ischial tuberosities. Normal visualized femoral head. Normal acetabulum. There is mild articular joint space narrowing of the hip. RAD/HIP, UNI W/ Pelvis 2-3 Views IMPRESSION: Mild degenerative disease as described. No acute fracture or subluxation. Electronically Signed: Rae Rosales MD at 3:22 EDT , Service support ,
== END ==
PROVIDERS: PCP Family Medicine Geriatric Medicine; Referring Provider Family Medicine Geriatric Medicine; Visit Provider Family Medicine Geriatric Medicine
DX: M25.559 Pain in unspecified hip (principal)
CPT/HCPCS: 73502

== ENCOUNTER → 2021-01-27 11:51 | Outpatient (CLI) | payer OTHER, SELFPAY | PROVIDERS: PCP Family Medicine Geriatric Medicine; Referring Provider Family Medicine Geriatric Medicine; Visit Provider Family Medicine Geriatric Medicine | DX: R68.83 Chills (without fever) (principal) | CPT/HCPCS: 87635; 87804; 87807; C9803; U0005; U0003 ==

== ENCOUNTER → 2021-04-20 15:21 | Outpatient (CLI) | payer OTHER, SELFPAY ==
[2021-04-20 17:21] LABS: Absolute Lymphocyte Count 1.68 X10^3/uL (0.83-4.51); Absolute Neutrophil Count 3.5 X10^3/uL (2.0-7.7); Basophil# 0.02 X10^3/uL; Basophil% 0.3 % (0-1); Eosinophil# 0.26 X10^3/uL; Eosinophils% 4.2 % (0-5); Hematocrit 38.3 % (37-47); Hemoglobin 12.5 g/dL (12.0-15.0); Lymphocyte # 1.68 X10^3/ul (0.83-4.51); Lymphocyte % 27.1 % (19-41); Mean Corp Hgb Conc 32.6 g/dL (32-36); Mean Corpuscular Hgb 27.7 pg (27.0-32.0); Mean Corpuscular Volume 84.9 fL (81-99); Mean Platelet Vol. 9.1 fl (6.2-12.0); Monocyte# 0.73 X10^3/uL; Monocyte% 11.8 % (0-10); NRBC Flagged by Analyzer 0 % (0-5); Neutrophil # 3.48 X10^3/uL (2.7-7.7); Platelet Count 294 K/mm3 (150-450); RBC Distribution Width CV 13.2 % (11.6-14.6); RBC Distribution Width SD 40.6 fl (35.1-43.9); Red Blood Count 4.51 M/mm3 (4.2-5.4); White Blood Count 6.2 K/mm3 (4.4-11.0)
[2021-04-20 17:50] LABS: ALB/GLOB Ratio 0.9 RATIO (0.9-2.4); AST(SGOT) 20 U/L (15-37); Alanine Aminotransfer ALT/SGPT 22 U/L (13-56); Albumin, Serum 3.3 g/dL (3.2-5.0); Alkaline Phosphatase 121 U/L (45-117); Anion Gap 5 (5-15); BUN 15 mg/dL (7-18); Calcium,Total 8.5 mg/dL (8.5-10.1); Chloride 108 mmol/L (98-107); Creatinine, Serum 0.68 mg/dL (0.55-1.02); EST Glomerular Filtration Rate 93 mL/min (>60); Est Glom Filt Rate - Afr Amer 112 mL/min (>60); Globulin 3.5 g/dL (2.2-4.2); Glucose 79 mg/dL (74-106); Potassium 3.6 mmol/L (3.5-5.1); Protein, Total 6.8 g/dL (6.4-8.2); Sodium Level 141 mmol/L (136-145); Thyroid Stim Hormone (TSH) 0.39 uIU/mL (0.358-3.74)
== END ==
PROVIDERS: PCP Family Medicine Geriatric Medicine; Visit Provider Family Medicine Geriatric Medicine
DX: R53.83 Other fatigue (principal)
CPT/HCPCS: 36415; 80053; 84443; 85025

== ENCOUNTER 2021-08-19 16:32 | Outpatient (CLI) | payer OTHER, SELFPAY ==
[2021-08-19 17:40] LABS: T3 Uptake 32 % (30-39); T4 Free Direct 0.99 ng/dL (0.76-1.46); Thyroid Stim Hormone (TSH) 0.78 uIU/mL (0.358-3.74)
[2021-08-19 19:29] LABS: T7 / Free Thyroxin Index 31.7 (1.4-4.5)
== END 2021-08-19 23:59 | disposition home or self-care (01) ==
LOC: POLAB3 16:36
PROVIDERS: PCP Family Medicine Geriatric Medicine; Visit Provider Family Medicine Geriatric Medicine
DX: E03.9 Hypothyroidism, unspecified (principal)
CPT/HCPCS: 36415; 84439; 84443; 84479

== ENCOUNTER → 2022-04-22 | Outpatient (CLI) | payer OTHER, SELFPAY ==
[2022-04-22 13:46] LABS: Absolute Lymphocyte Count 3.07 X10^3/uL (0.83-4.51); Absolute Neutrophil Count 3.4 X10^3/uL (2.0-7.7); Basophil# 0.05 X10^3/uL; Basophil% 0.7 % (0-1); Eosinophil# 0.19 X10^3/uL; Eosinophils% 2.6 % (0-5); Hematocrit 39.9 % (37-47); Hemoglobin 12.5 g/dL (12.0-15.0); Lymphocyte # 3.07 X10^3/ul (0.83-4.51); Lymphocyte % 41.6 % (19-41); Mean Corp Hgb Conc 31.3 g/dL (32-36); Mean Corpuscular Hgb 27.8 pg (27.0-32.0); Mean Corpuscular Volume 88.7 fL (81-99); Mean Platelet Vol. 9.5 fl (6.2-12.0); Monocyte# 0.67 X10^3/uL; Monocyte% 9.1 % (0-10); NRBC Flagged by Analyzer 0 % (0-5); Neutrophil # 3.36 X10^3/uL (2.7-7.7); Neutrophil % 45.5 % (47-70); Platelet Count 267 K/mm3 (150-450); RBC Distribution Width CV 12.9 % (11.6-14.6); White Blood Count 7.4 K/mm3 (4.4-11.0)
[2022-04-22 14:19] LABS: Vitamin D,25 Hydroxy 54.6 ng/mL
[2022-04-22 14:23] LABS: ALB/GLOB Ratio 1.2 RATIO (0.9-2.4); AST(SGOT) 16 U/L (15-37); Alanine Aminotransfer ALT/SGPT 20 U/L (13-56); Albumin, Serum 3.6 g/dL (3.2-5.0); Alkaline Phosphatase 74 U/L (45-117); Anion Gap 6 (5-15); BUN 17 mg/dL (7-18); Calcium,Total 8.6 mg/dL (8.5-10.1); Chloride 111 mmol/L (98-107); Creatinine, Serum 0.68 mg/dL (0.55-1.02); EST Glomerular Filtration Rate 93 mL/min (>60); Est Glom Filt Rate - Afr Amer 112 mL/min (>60); Globulin 3.1 g/dL (2.2-4.2); Glucose 63 mg/dL (74-106); Potassium 3.2 mmol/L (3.5-5.1); Protein, Total 6.7 g/dL (6.4-8.2); Sodium Level 146 mmol/L (136-145); Thyroid Stim Hormone (TSH) 0.48 uIU/mL (0.358-3.74)
== END | disposition home or self-care (01) ==
LOC: POLAB3 10:45
PROVIDERS: PCP Family Medicine Geriatric Medicine; Visit Provider Family Medicine Geriatric Medicine
DX: E55.9 Vitamin D deficiency, unspecified (principal); R53.83 Other fatigue
CPT/HCPCS: 36415; 80053; 82306; 84443; 85025

== ENCOUNTER → 2022-06-01 | Outpatient (CLI) | payer OTHER, SELFPAY ==
--- NOTE | 2022-06-01 13:49 | BI_ITS ---
MAMMOGRAPHY - BILATERAL SCREENING REASON FOR EXAM: Female, 66 years old. Routine annual screening examination. PERTINENT HISTORY: Non-contributory. TECHNIQUE: Digital bilateral breast devin (3D mammographic acquisition) in the CC and MLO projections. 2-D mediolateral oblique (MLO) and craniocaudad (CC) views of both breasts were obtained. CAD: Full Field Digital Mammography with Computer Added Detection was performed. COMPARISON: None. Baseline examination. FINDINGS: Breast Composition: The breasts are extremely dense, which lowers the sensitivity of mammography. There are no dominant masses or suspicious calcifications. No other significant abnormalities are identified. BI/SCRN MAMM (CAD)W/DEVIN BILAT IMPRESSION: Negative screening mammogram. Yearly followup mammogram recommended. (A) ASSESSMENT CATEGORY: BIRADS Category 1: Negative. A letter regarding these results will be sent to the patient by the facility within 30 days. Approximately 10% of breast cancers are not detected by mammography. A normal mammogram should not delay biopsy of a clinically suspicious abnormality. Electronically Signed: Arnulfo Ronak, at 13:57 EST ,
== END | disposition home or self-care (01) ==
LOC: OPBI 13:46
PROVIDERS: PCP Family Medicine Geriatric Medicine; Referring Provider Family Medicine Geriatric Medicine; Visit Provider Family Medicine Geriatric Medicine
DX: Z12.31 Encounter for screening mammogram for malignant neoplasm of breast (principal)
CPT/HCPCS: 77063; 77067

== ENCOUNTER 2023-03-23 18:59 | Emergency (ER) | payer OTHER, BC, SELFPAY ==
[2023-03-23 19:00] VITALS: BP 139/81; PULSE 60; RESP 14; TEMP 36.6; O2SAT 96; BMI 26.9
--- NOTE | 2023-03-23 19:50 | ED.VIS.GI ---
HPI HPI - GI History of Present Illness Chief Complaint: Abd Pain Narrative Narrative: 67-year-old female presenting with left lower quad abdominal pain. She has a history of diverticulitis. She states the pain started about 5 PM which is about 3 hours ago. Is been mild. Now she feels like it is sharp and stabbing. She got sweaty and nauseous. She states she states that she is nauseous and vomiting. She states that she tried to give a urine sample was unable to void. She feels like she has to urinate. No history of kidney stones. No fevers. PFSH PFSH Medical History Diverticulitis Kidney cysts Home Medications cholecalciferol (vitamin D3) 10 mcg (400 unit) capsule 400 unit PO DAILY supplement 07/29/17 [History Last Taken 07/28/17] ferrous sulfate 325 mg (65 mg iron) tablet 325 mg PO DAILY supplement 07/29/17 [History Last Taken 07/28/17] celecoxib 200 mg capsule cap PO 11/18/19 [History Last Taken Unknown] linaclotide 72 mcg capsule 72 mcg PO 11/18/19 [History Last Taken Unknown] amoxicillin 875 mg-potassium clavulanate 125 mg tablet 1 tab PO BID #20 tabs 03/23/23 [Rx Last Taken Unknown] hydrocodone-acetaminophen 5-325mg 5mg-325mg 1 tab PO Q6H 3 days #12 TABLETS 03/23/23 [Rx Last Taken Unknown] ondansetron 4 mg disintegrating tablet 4 mg PO Q8H PRN PRN Nausea #14 tabs 03/23/23 [Rx Last Taken Unknown] Allergy/AdvReac Type Severity Reaction Status Date / Time morphine AdvReac Vomiting Verified 07/28/17 22:41 Social History Smoking Status: Never smoker ROS ROS ED Constitutional Constitutional ED: Reports chills and sweats ENT ENT ED: Denies rhinorrhea or sore throat Cardiovascular Cardiovascular: Denies chest pain or palpitations Respiratory/Chest Respiratory/Chest: Denies cough or dyspnea Gastrointestinal Gastrointestinal: Reports abdominal pain and nausea Genitourinary Genitourinary ED: Denies dysuria Musculoskeletal Musculoskeletal: Denies arthralgias Integumentary Denies abscess or Abrasions Neurologic Neurologic: Denies headache(s) Psychiatric Psychiatric: Denies anxiety EXAM Physical Exam Const Vital Signs: 03/23/23 19:00 03/23/23 22:04 03/23/23 22:32 Temperature 97.8 F Temperature Source Oral Pulse Rate 60 69 65 Respiratory Rate 14 16 Blood Pressure 139/81 H 131/65 H 140/73 H Blood Pressure Mean 100 87 95 Pulse Ox 96 98 92 Oxygen Delivery Method Room Air Room Air Positive well nourished General Appearance ED: NAD; Negative for pallor HEENT Reports moist mucous membranes Eyes PERRL and EOMs intact bilaterally General Eye ED: Negative for pale conjunctiva Resp normal respiratory effort Cardio regular rate and regular rhythm GI Palpation: tender LLQ Back/Spine no CVA tenderness Neuro CN's II-XII intact bilaterally Sensorium / Orientation: alert Psych mental status grossly normal Skin no wounds General Skin Exam: Negative for jaundice or pallor MDM MDM MDM Narrative Medical decision making narrative: Patient presenting with right flank pain. Differential includes colitis, diverticulitis, gastritis, pancreatitis, constipation, UTI, pyelonephritis, renal calculi, ureteral calculi, bowel obstruction, malignancy, dehydration, electrolyte abnormalities, , ectopic , ovarian cyst, ovarian torsion. Medicated with morphine and Zofran. She given IV fluids. Bladder scan will be obtained as she states she is unable to void. CBC does not show leukocytosis. Hemoglobin hematocrit are stable. Platelets are normal. LFTs and renal function all within normal limits. CT abdomen pelvis shows uncomplicated acute sigmoid diverticulitis as well as a date UVJ stone causing hydronephrosis which is the cause of her pain and symptoms since she has both. Urinalysis negative for infection she will be given a prescription for Augmentin. She is also given Ol[place]a and Zofran. She will be given follow-up with urology. Return precautions were discussed. Impression: 1. Left UVJ stone 2. Diverticulitis 3. Hematuria 4. Left-sided hydronephrosis Lab Data Attestation: I reviewed the patient's lab results. Labs: Laboratory Results - last 24 hr 03/23/23 03/23/23 19:08 21:20 WBC 9.3 RBC 4.74 Hgb 12.7 Hct 39.5 MCV 83.3 MCH 26.8 L MCHC 32.2 RDW Std Deviation 38.3 RDW Coeff of Seth 12.7 Plt Count 256 MPV 9.8 Immature Gran % (Auto) 0.500 Neut % (Auto) 58.2 Lymph % (Auto) 31.3 [place] % (Auto) 8.1 Eos % (Auto) 1.4 Baso % (Auto) 0.5 Absolute Neuts (auto) 5.4 Absolute Lymphs (auto) 2.92 Nucleated RBC % 0 Sodium 141 Potassium 3.6 Chloride 108 H Carbon Dioxide 26.0 Anion Gap 7 BUN 18 Creatinine 0.78 Estim Creat Clear Calc 56.87 Est GFR (MDRD) Af Amer 95 Est GFR (MDRD) Non-Af 78 BUN/Creatinine Ratio 23.0 H Glucose 88 Calcium 8.9 Total Bilirubin 0.40 AST 18 ALT 15 Alkaline Phosphatase 102 Total Protein 6.7 Albumin 3.7 Globulin 3.0 Albumin/Globulin Ratio 1.2 Urine Color Yellow Urine Clarity Clear Urine pH 6.5 Ur Specific Topmost 1.010 Urine Protein Negative Urine Glucose (UA) Normal Urine Ketones 5 H Urine Occult Blood 50 H Urine Nitrite Negative Urine Bilirubin Negative Urine Urobilinogen Normal Ur Leukocyte Esterase 500 H Urine RBC 0-5 SEEN Urine WBC 5-10 SEEN Ur Squamous Epith Cells 0-5 SEEN Urine Bacteria 0 SEEN Urine Mucus 0 SEEN Radiography Diagnostic Testing: Clinical Impression(s) from Imaging Studies Abdomen/Pelvis CT 03/23/23 20:45 IMPRESSION: Uncomplicated diverticulitis of the sigmoid colon. Follow-up CT or colonoscopy recommended in 6 weeks after treatment to ensure resolution of wall thickening. Punctate left ureterovesical junction intraluminal stone without hydronephrosis. Small hiatal hernia. Electronically Signed: Bala Nelson MD at 21:22 EDT , Discharge Plan Triage Chief Complaint: Abd Pain ED Provider: Kehinde Engle Dx/Rx/DC Orders Instructions: ED Diverticulitis, ED Kidney Stone w/ Colic Prescriptions: New hydrocodone-acetaminophen 5-325 mg tablet 1 tab PO Q6H 3 Days Qty: 12 0RF ondansetron 4 mg tablet,disintegrating 4 mg PO Q8H PRN PRN (Reason: Nausea) Qty: 14 0RF amoxicillin-pot clavulanate 875-125 mg tablet 1 tab PO BID Qty: 20 0RF No Action celecoxib 200 mg capsule PO linaclotide 72 mcg capsule 72 mcg PO ferrous sulfate 325 MG tablet 325 mg PO DAILY cholecalciferol (vitamin D3) 400 UNIT capsule 400 unit PO DAILY Primary Care Provider: Qamar Davison Chi Referrals: Jose Elias Garzon MD [Med Staff - Active Staff] - 3-5 Days Qamar Davison Chi, MD [Primary Care Provider] - Disposition Disposition: Home, Self Care Discharge Date/Time: 03/23/23 22:38
[2023-03-23 19:51] LABS: Absolute Lymphocyte Count 2.92 X10^3/uL (0.83-4.51); Absolute Neutrophil Count 5.4 X10^3/uL (2.0-7.7); Basophil# 0.05 X10^3/uL; Basophil% 0.5 % (0-1); Eosinophil# 0.13 X10^3/uL; Eosinophils% 1.4 % (0-5); Hematocrit 39.5 % (37-47); Hemoglobin 12.7 g/dL (12.0-15.0); Lymphocyte # 2.92 X10^3/ul (0.83-4.51); Lymphocyte % 31.3 % (19-41); Mean Corp Hgb Conc 32.2 g/dL (32-36); Mean Corpuscular Hgb 26.8 pg (27.0-32.0); Mean Corpuscular Volume 83.3 fL (81-99); Mean Platelet Vol. 9.8 fl (6.2-12.0); Monocyte# 0.76 X10^3/uL; Monocyte% 8.1 % (0-10); NRBC Flagged by Analyzer 0 % (0-5); Neutrophil # 5.42 X10^3/uL (2.7-7.7); Neutrophil % 58.2 % (47-70); Platelet Count 256 K/mm3 (150-450); RBC Distribution Width CV 12.7 % (11.6-14.6); RBC Distribution Width SD 38.3 fl (35.1-43.9); Red Blood Count 4.74 M/mm3 (4.2-5.4); White Blood Count 9.3 K/mm3 (4.4-11.0)
[2023-03-23] MEDS: 0.9% Normal Saline (1000mL) 1,000 ML 999 ML IV (20:07)
[2023-03-23] MEDS: Morphine 4 MG/ML Syringe IV (20:07)
[2023-03-23] MEDS: Ondansetron 4 MG/2 ML Vial IV (20:07)
--- NOTE | 2023-03-23 20:07 | EKG12_ITS ---
Test Reason : PAIN Blood Pressure : / mmHG Vent. Rate : 060 BPM Atrial Rate : 060 BPM P-R Int : 138 ms QRS Dur : 074 ms QT Int : 442 ms P-R-T Axes : 073 -01 033 degrees QTc Int : 442 ms Normal sinus rhythm Normal ECG Confirmed by CAMDEN DE LA CRUZ, SHARON ([id number]), metropolitan editor LAMIN MANNING ([id number]) on 03/28/2023 12:54:09 PM Referred By: Confirmed By:EDER HANNAH MD
[2023-03-23 20:41] LABS: ALB/GLOB Ratio 1.2 RATIO (0.9-2.4); AST(SGOT) 18 U/L (15-37); Alanine Aminotransfer ALT/SGPT 15 U/L (13-56); Albumin, Serum 3.7 g/dL (3.2-5.0); Alkaline Phosphatase 102 U/L (45-117); Anion Gap 7 (5-15); BUN 18 mg/dL (7-18); Calcium,Total 8.9 mg/dL (8.5-10.1); Chloride 108 mmol/L (98-107); Creatinine, Serum 0.78 mg/dL (0.55-1.02); EST Glomerular Filtration Rate 78 mL/min (>60); Est Glom Filt Rate - Afr Amer 95 mL/min (>60); Estimated Creatinine Clearance 56.87 ml/min; Glucose 88 mg/dL (74-106); Potassium 3.6 mmol/L (3.5-5.1); Protein, Total 6.7 g/dL (6.4-8.2); Sodium Level 141 mmol/L (136-145)
--- NOTE | 2023-03-23 20:45 | CT_ITS ---
INDICATION: llq abdominal pain EXAMINATION: CT ABDOMEN AND PELVIS WITH CONTRAST - CT Abdomen And Pelvis W/ Contrast Injection TECHNIQUE: Helically acquired images were obtained of the abdomen and pelvis following IV contrast. A radiation dose optimization technique was used for this scan. IV Contrast dosage and agent: 100 mL Isovue-300 Oral contrast: None. COMPARISON: None. FINDINGS: LOWER CHEST: Subsegmental atelectasis in the lung bases.. No cardiomegaly or pericardial effusion. LIVER: Homogeneous. No focal mass. GALLBLADDER AND BILIARY TREE: No calcified gallstones. No gallbladder distension or wall edema. No intra- or extrahepatic biliary ductal dilation. PANCREAS: No focal cystic or solid mass. SPLEEN: Normal size without focal cystic or solid mass. ADRENAL GLANDS: No nodules. KIDNEYS AND URETERS: Punctate left renal ureterovesical junction stone, axial image 96. No hydronephrosis. Left renal cyst, no imaging follow-up required. Unremarkable right renal cortex. No perinephric inflammation. Unremarkable right ureter. Remainder of the bladder is normal in appearance. BOWEL: Small hiatal hernia. No acute gastric finding. No small bowel distention or focal wall thickening. Normal appendix. Scattered colonic diverticulosis with focal inflamed diverticulum in the sigmoid colon, coronal image 52, with mild surrounding inflammatory stranding. No abscess, free air, or adenopathy. VESSELS: Aorta is non-dilated. URINARY BLADDER: Unremarkable. REPRODUCTIVE ORGANS: Unremarkable uterus and adnexa.. ABDOMINAL WALL: No discrete abdominal or pelvic wall hernia. BONES: No lytic or blastic abnormality. CT/Abdomen/Pelvis W IV Cont ONLY IMPRESSION: Uncomplicated diverticulitis of the sigmoid colon. Follow-up CT or colonoscopy recommended in 6 weeks after treatment to ensure resolution of wall thickening. Punctate left ureterovesical junction intraluminal stone without hydronephrosis. Small hiatal hernia. Electronically Signed: Bala Nelson MD at 21:22 EDT ,
[2023-03-23 21:24] LABS: Bacteria 0 SEEN /hpf (None Seen); Mucous, Urine 0 SEEN /hpf (<or=2+)
[2023-03-23 22:00] LABS: Color, Urine Yellow (Yellow); Glucose, Dipstick Normal (Normal); Ketone-Dipstick 5 mg/dl (Negative); Leukocyte Esterase-Dipstick 500 /ul (Negative); Nitrite-Dipstick Negative (Negative); Occult Blood-Urine 50 /ul (Negative); Protein-Dipstick Negative (Negative); Urine Bilirubin Dipstick Negative (Negative); Urine Clarity Clear (Clear); Urine Urobilinogen Normal (Normal); Urine pH 6.5 (5.0 - 8.0)
[2023-03-23 22:04] VITALS: BP 131/65; PULSE 69; RESP 16; O2SAT 98
[2023-03-23 22:23] LABS: Red Blood Cells-Urine 0-5 SEEN /hpf (0-5); Squamous Epithelial Cells - UA 0-5 SEEN /hpf (5-10); White Blood Cells 5-10 SEEN /hpf (0-5)
[2023-03-23 22:32] VITALS: BP 140/73; PULSE 65; O2SAT 92
[2023-03-23] MEDS: Amox/Clavulanate 875 MG Tablet PO (22:33)
== END 2023-03-23 22:38 | disposition home or self-care (01) ==
PROVIDERS: Emergency Provider Student in an Organized Health Care Education/Training Program; PCP Family Medicine Geriatric Medicine; Visit Provider Student in an Organized Health Care Education/Training Program
DX: N13.2 Hydronephrosis with renal and ureteral calculous obstruction (principal); K57.32 Diverticulitis of large intestine without perforation or abscess without bleeding; R31.9 Hematuria, unspecified
CPT/HCPCS: 74177; 80053; 81001; 85025; 93005; 96374; 96375; 99283; J7030; Q9967; A4216; J2405

== ENCOUNTER → 2023-05-12 | Outpatient (CLI) | payer OTHER, BC, SELFPAY ==
[2023-05-12 11:42] LABS: Absolute Lymphocyte Count 1.76 X10^3/uL (0.83-4.51); Absolute Neutrophil Count 3.5 X10^3/uL (2.0-7.7); Basophil# 0.02 X10^3/uL; Basophil% 0.3 % (0-1); Eosinophil# 0.15 X10^3/uL; Eosinophils% 2.6 % (0-5); Hematocrit 41.5 % (37-47); Hemoglobin 13.4 g/dL (12.0-15.0); Lymphocyte # 1.76 X10^3/ul (0.83-4.51); Lymphocyte % 30.3 % (19-41); Mean Corp Hgb Conc 32.3 g/dL (32-36); Mean Corpuscular Hgb 27.3 pg (27.0-32.0); Mean Corpuscular Volume 84.7 fL (81-99); Mean Platelet Vol. 9.6 fl (6.2-12.0); Monocyte# 0.39 X10^3/uL; Monocyte% 6.7 % (0-10); NRBC Flagged by Analyzer 0 % (0-5); Neutrophil # 3.46 X10^3/uL (2.7-7.7); Neutrophil % 59.8 % (47-70); Platelet Count 245 K/mm3 (150-450); RBC Distribution Width CV 13.5 % (11.6-14.6); RBC Distribution Width SD 41.5 fl (35.1-43.9); White Blood Count 5.8 K/mm3 (4.4-11.0)
[2023-05-12 11:59] LABS: Vitamin D,25 Hydroxy 47.1 ng/mL
[2023-05-12 12:09] LABS: Erythrocyte Sedimentation Rate 7 mm/hr (0-30)
[2023-05-12 12:22] LABS: ALB/GLOB Ratio 1.1 RATIO (0.9-2.4); AST(SGOT) 20 U/L (15-37); Alanine Aminotransfer ALT/SGPT 19 U/L (13-56); Albumin, Serum 3.6 g/dL (3.2-5.0); Alkaline Phosphatase 101 U/L (45-117); Anion Gap 4 (5-15); BUN 14 mg/dL (7-18); BUN/Creat Ratio 18.8 RATIO (10-20); CRP < 2.90 mg/L (0.0-3.0); Calcium,Total 8.4 mg/dL (8.5-10.1); Chloride 110 mmol/L (98-107); Creatinine, Serum 0.74 mg/dL (0.55-1.02); EST Glomerular Filtration Rate 83 mL/min (>60); Est Glom Filt Rate - Afr Amer 100 mL/min (>60); Globulin 3.4 g/dL (2.2-4.2); Glucose 85 mg/dL (74-106); Rheumatoid Factor < 10.0 IU/mL (<15); Sodium Level 141 mmol/L (136-145); Thyroid Stim Hormone (TSH) 0.47 uIU/mL (0.358-3.74)
[2023-05-16 10:09] LABS: Anti-Nuclear Antibody Test Negative (.)
== END | disposition home or self-care (01) ==
LOC: POLAB3 10:37
PROVIDERS: PCP Family Medicine Geriatric Medicine; Visit Provider Family Medicine Geriatric Medicine
DX: M19.90 Unspecified osteoarthritis, unspecified site (principal); R53.83 Other fatigue; E55.9 Vitamin D deficiency, unspecified
CPT/HCPCS: 36415; 80053; 82306; 84443; 85025; 85652; 86038; 86140; 86431

== ENCOUNTER → 2023-06-19 | Outpatient (CLI) | payer OTHER, BC, SELFPAY ==
--- OUTSIDE RECORDS SUMMARY | 2023-06-19 10:12 | XMS RPT_ITS | CCD ---
Author Name Unknown Address [address] [place] [address] Organization [facility] Results Test Name Value Interpretation Reference Range Facil ity Progress note 04-27-2021 Note Date & Type Note Facility 04-27-2021 Note HNO ID: [id number] Author: Morris Collins MD Service: ? Author Type: Physician Type: Progress Notes Filed: 04/27/2021 4:07 PM Note Text: She returns today for follow-up. She reports having some puffiness around her left clavicle some discomfort when she practice and do left shoulder exercises. On exam, she demonstrates good range of motion of the left shoulder. Good strength of rotator cuff exam. Her imaging studies demonstrating stable AC joint with minimal arthritis in the glenohumeral joint Assessment plan: Continue current conservative approach. Continue with shoulder stretching exercises. Patient reassured regarding the puffiness and is consistent with subcutaneous fat. Follow-up in clinic as needed Ms. Adriano Henry was seen in office today for orthopaedic evaluation. I have personally reviewed the patient's electronic medical record and updated imaging studies. I've taken a careful history and performed a updated physical examination. My findings have been recorded above by my resident. I concur with the above findings and recommendations. The patient will follow-up as instructed. Of course if at any point there is a concern or question which arises patient can call if needed we will arrange for earlier follow-up if needed. A copy of this consultation report has been sent to the patient as well as to the patient's primary care physician, Dr. Davison. MD Cinthia Limon MD([facility] Summary Purpose Family History No Family History Records FoundNo Family History Records Found Advance Directives No Advanced Directives Records FoundNo Advanced Directives Records Found Additional Source Comments INFORMATION SOURCE (unrecogn ized section and content) DATE CREATED AUTHOR AUTHOR'S VERONICA VERNON 04/28/2021 [facility] FOR RECORDS PERTAINING TO PATIENTS WHO ARE OR HAVE BEEN ENROLLED IN A CHEMICAL DEPENDENCY/SUBSTANCEABUSE PROGRAM, SOME INFORMATION MAY BE OMITTED. This clinical summary was aggregated from multiple sources. Caution should be exercised in using it in the provision of clinical care. This summary normalizes information from multiple sources, and as a consequence, information in this document may materially change the coding, format and clinical context of patient data. In addition, data may be omitted in some cases. CLINICAL DECISIONS SHOULD BE BASED ON THE PRIMARY CLINICAL RECORDS. [facility] [facility]. provides no warranty or guarantee of the accuracy or completeness of information in this document.
== END | disposition home or self-care (01) ==
LOC: PSN 09:48
PROVIDERS: PCP Family Medicine Geriatric Medicine; Referring Provider Family Medicine Geriatric Medicine; Visit Provider Family Medicine Geriatric Medicine
DX: R68.83 Chills (without fever) (principal)
CPT/HCPCS: 87631

== ENCOUNTER → 2023-07-13 | Outpatient (CLI) | payer OTHER, BC, SELFPAY ==
--- NOTE | 2023-07-13 09:21 | BD_ITS ---
STUDY: DUAL ENERGY X-RAY ABSORPTIOMETRY / DXA REASON FOR EXAM: Female, 67 years old. [id number] TECHNIQUE: Bone Mineral Density (BMD) measurements of lumbar spine and bilateral hips were obtained. COMPARISON: None. FINDINGS: Lumbar Spine (L1-L4): g/cm2 (0.872) / T-score (-1.6) / Z-score (0.2) Findings are suggestive of osteopenia with a moderate fracture risk. Left Femur Total: g/cm2 (0.752) / T-score (-1.6) / Z-score (-0.3) Left Femoral Neck: g/cm2 (0.585) / T-score (-2.4) / Z-score (-0.8) Right Femur Total: g/cm2 (0.723) / T-score (-1.8) / Z-score (-0.5) Right Femoral Neck: g/cm2 (0.651) / T-score (-1.8) / Z-score (-0.2) BD/Dexa Bone Density Study IMPRESSION: The patient is considered osteopenic as outlined below according to World Bere[employer] Organization (WHO) criteria with a high fracture risk. Reference Information: The T-score is the number of standard deviations above or below the standard which is normal for young adults at their peak bone mineral density. The World Health Organization (WHO) interprets the T-scores as follows: Above -1 Normal bone density Between -1 and -2.5 Osteopenia Equal to / or below -2.5 Osteoporosis As a practical clinical guideline, osteopenia may be graded as follows: Mild -1 through -1.5 Moderate -1.6 through -2.0 Severe -2.1 through -2.4 The Z-score is the number of standard deviations above or below age-matched controls. A Z-score of less than -1.5 would be considered abnormal. References: 1. NIH Osteoporosis and Related Bone Diseases www osteo.org 2. International Society for Clinical Densitometry www iscd.org 3. National Osteoporosis Foundation www nof.org Electronically Signed: Segundo Moffett MD at 9:33 EST ,
== END | disposition home or self-care (01) ==
LOC: OPBD 09:17
PROVIDERS: PCP Family Medicine Geriatric Medicine; Referring Provider Family Medicine Geriatric Medicine; Visit Provider Family Medicine Geriatric Medicine
DX: Z78.0 Asymptomatic menopausal state (principal)
CPT/HCPCS: 77080

== ENCOUNTER → 2023-08-03 | Outpatient (CLI) | payer OTHER, BC, SELFPAY ==
[2023-08-03 17:31] LABS: Absolute Lymphocyte Count 1.63 X10^3/uL (0.83-4.51); Absolute Neutrophil Count 7.1 X10^3/uL (2.0-7.7); Basophil# 0.03 X10^3/uL; Basophil% 0.3 % (0-1); Eosinophil# 0.05 X10^3/uL; Eosinophils% 0.5 % (0-5); Hematocrit 37.2 % (37-47); Hemoglobin 12.4 g/dL (12.0-15.0); Lymphocyte # 1.63 X10^3/ul (0.83-4.51); Lymphocyte % 16.4 % (19-41); Mean Corp Hgb Conc 33.3 g/dL (32-36); Mean Corpuscular Hgb 28.2 pg (27.0-32.0); Mean Corpuscular Volume 84.5 fL (81-99); Mean Platelet Vol. 8.8 fl (6.2-12.0); Monocyte# 0.98 X10^3/uL; Monocyte% 9.9 % (0-10); NRBC Flagged by Analyzer 0 % (0-5); Neutrophil # 7.12 X10^3/uL (2.7-7.7); Neutrophil % 71.9 % (47-70); Platelet Count 251 K/mm3 (150-450); RBC Distribution Width CV 13.6 % (11.6-14.6); RBC Distribution Width SD 42.2 fl (35.1-43.9); White Blood Count 9.9 K/mm3 (4.4-11.0)
[2023-08-03 17:59] LABS: AST(SGOT) 14 U/L (15-37); Alanine Aminotransfer ALT/SGPT 17 U/L (13-56); Albumin, Serum 3.3 g/dL (3.2-5.0); Alkaline Phosphatase 89 U/L (45-117); Anion Gap 6 (5-15); BUN 16 mg/dL (7-18); Calcium,Total 8.5 mg/dL (8.5-10.1); Chloride 106 mmol/L (98-107); EST Glomerular Filtration Rate 76 mL/min (>60); Est Glom Filt Rate - Afr Amer 92 mL/min (>60); Globulin 3.4 g/dL (2.2-4.2); Glucose 102 mg/dL (74-106); Potassium 3.8 mmol/L (3.5-5.1); Protein, Total 6.7 g/dL (6.4-8.2); Sodium Level 137 mmol/L (136-145)
== END | disposition home or self-care (01) ==
LOC: POLAB3 17:10
PROVIDERS: PCP Family Medicine Geriatric Medicine; Visit Provider Family Medicine Geriatric Medicine
DX: E78.5 Hyperlipidemia, unspecified (principal); R10.9 Unspecified abdominal pain
CPT/HCPCS: 36415; 80053; 85025

== ENCOUNTER → 2023-08-04 | Outpatient (CLI) | payer OTHER, BC, SELFPAY ==
--- NOTE | 2023-08-04 09:57 | CT_ITS ---
STUDY: CT ABDOMEN AND PELVIS WITH CONTRAST REASON FOR EXAM: Female, 67 years old. 2 day history of left lower quadrant pain. RADIATION DOSAGE (If Supplied By Facility): CTDIvol = ( 11.63 ) mGy, DLP = ( 680.86 ) mGycm TECHNIQUE: Transaxial images were obtained from the dome of the diaphragm to the symphysis pubis with oral contrast. Oral and amp; IV Gastrografin and amp; 100mL Isovue-300 was administered. Sagittal and coronal images were reconstructed. Individualized dose optimization techniques were used for this CT. COMPARISON: Comparison is made with prior study dated March 23, 2023. FINDINGS: The visualized lung bases are unremarkable. The visualized portions of the heart are within normal limits. Normal liver. Normal gallbladder and extrahepatic biliary system. Normal spleen. Normal pancreas. Normal bilateral adrenal glands. Normal right kidney. There is a 2.4 cm cyst in the anterior medial aspect of the left kidney. A linear filling defect is seen in the left gonadal vein. A thrombus should be ruled out. Normal visualized stomach. Normal small intestine. Inflammatory changes are seen in the descending colon with the thickening of the colonic wall and increased markings in the surrounding peritoneal fat. There is an appearance of an apple core. A neoplastic process should be ruled out. Clinical correlation recommended. The appendix is visualized and appears normal. Normal abdominal aorta. Normal inferior vena cava. Normal retroperitoneum. Normal urinary bladder. Normal abdominal wall. Normal osseous structures. CT/Abdomen/Pelvis WITH Contrast IMPRESSION: Inflammatory changes and a masslike lesion seen in the descending colon with inflammatory markings in the surrounding fat. A neoplastic process with penetration should be ruled out. There are several tiny diverticula seen at that site as well. A filling defect is seen in the left gonadal vein. An intraluminal thrombus should be ruled out. Left renal cyst. Electronically Signed: Segundo Moffett MD at 13:06 EST ,
--- OUTSIDE RECORDS SUMMARY | 2023-08-04 10:12 | XMS RPT_ITS | CCD ---
Author Name Unknown Address [address] [place] [address] Organization [facility] Results Test Name Value Interpretation Reference Range Facil ity Progress note 04-27-2021 Note Date & Type Note Facility 04-27-2021 Note HNO ID: [id number] Author: Morris Collins MD Service: ? Author [...] care physician, Dr. Davison. MD Cinthia Limon MD([facility] Summary Purpose Family History No Family History Records FoundNo Family History Records Found Advance Directives No Advanced Directives Records FoundNo Advanced Directives Records Found Additional Source Comments INFORMATION SOURCE (unrecogn ized section and content) DATE CREATED AUTHOR AUTHOR'S VERONICA VERNON 04/28/2021 [facility] FOR RECORDS PERTAINING TO PATIENTS WHO [...] BE BASED ON THE PRIMARY CLINICAL RECORDS. [facility] [employer] [facility]. provides no warranty or guarantee of the accuracy or completeness of information in this document.
== END | disposition home or self-care (01) ==
PROVIDERS: PCP Family Medicine Geriatric Medicine; Referring Provider Family Medicine Geriatric Medicine; Visit Provider Family Medicine Geriatric Medicine
DX: R10.9 Unspecified abdominal pain (principal)
CPT/HCPCS: 74177; Q9967

== ENCOUNTER → 2023-08-04 | Outpatient (CLI) | payer OTHER, BC, SELFPAY | END | disposition home or self-care (01) | LOC: LABSPEC 10:24 | PROVIDERS: PCP Family Medicine Geriatric Medicine; Visit Provider Family Medicine Geriatric Medicine | DX: E78.5 Hyperlipidemia, unspecified (principal); R10.9 Unspecified abdominal pain | CPT/HCPCS: 82274 ==

== ENCOUNTER → 2023-08-08 | Outpatient (CLI) | payer OTHER, BC, SELFPAY ==
--- NOTE | 2023-08-08 14:58 | VDLE_ITS ---
Reason For Study: DVT Procedure LEFT This is a venous duplex using B-mode, color GSV is normal. flow and spectral Doppler. CFV is compressible, spontaneous, phasic, Exam performed in department. competent, and demonstrates normal A preliminary report was called and/or faxed augmentation. to Dr. Davison. FV is compressible, spontaneous, phasic, competent and demonstrates normal augmentation. POP V is compressible, spontaneous, phasic, competent and demonstrates normal augmentation. T/P Trunk is compressible. PTV is compressible. LT PerV is compressible. VL/Venous Duplex US, Unilateral Interpretation Summary Deep veins of the left lower extremity are patent and compressible segmentally. There is no evidence of left lower extremity deep vein thrombosis. Valvular competence appears intac t within the proximal deep venous system on the left . The left great saphenous vein appears patent a nd compressible segmentally. Ordering Physician: Qamar Davison Chi Referring Physician: Qamar Davison Chi Performed By: Eufemia Scott RVT
== END | disposition home or self-care (01) ==
LOC: CVS 14:56
PROVIDERS: PCP Family Medicine Geriatric Medicine; Referring Provider Family Medicine Geriatric Medicine; Visit Provider Family Medicine Geriatric Medicine
DX: I82.409 Acute embolism and thrombosis of unspecified deep veins of unspecified lower extremity (principal)
CPT/HCPCS: 93971

== ENCOUNTER → 2023-09-26 | Outpatient (CLI) | payer OTHER, BC, SELFPAY ==
[2023-10-02 14:09] LABS: HPV APTIMA, High Risk Negative (Negative)
== END | disposition home or self-care (01) ==
LOC: LABSPEC 11:36
PROVIDERS: PCP Family Medicine Geriatric Medicine; Referring Provider Nurse Practitioner Family; Visit Provider Nurse Practitioner Family
DX: Z12.4 Encounter for screening for malignant neoplasm of cervix (principal)
CPT/HCPCS: 87624; 88175; G0145

== ENCOUNTER → 2023-10-20 | Outpatient (CLI) | payer OTHER, BC, SELFPAY ==
--- NOTE | 2023-10-20 15:58 | US_ITS ---
STUDY: ULTRASOUND OF THE FEMALE PELVIS - COMPLETE REASON FOR EXAM: Female, 68 years old. pelvic pain LMP: Menopause TECHNIQUE: Transabdominal and Transvaginal TECHNICAL QUALITY: Adequate. COMPARISON: None. FINDINGS: The uterus is anteverted and is in a midline position. The uterus measures 6.9 x 3.4 x 2.8 cm. Normal uterine cervix. The endometrium measures 5 mm in thickness, and is hyperechoic. There is no demonstrated endometrial mass. There is no demonstrated myometrial mass. I.U.D. - The patient does not have an I.U.D. The right ovary is visualized. The right ovary measures 2.2 x 1.8 x 1.4 cm. There is no right ovarian cyst or ovarian mass. There is no visualized right adnexal mass or complex lesion. There is normal arterial and normal venous vascularity. The left ovary is visualized. The left ovary measures 1.4 x 0.8 x 1.0 cm. There is no left ovarian cyst or ovarian mass. There is no visualized left adnexal mass or complex lesion. There is normal arterial and normal venous vascularity. There is no fluid in the cul-de-sac. The pre void volume of the bladder was 160 ml. The post void volume of the bladder was ml. Polycystic ovary disease: No. US/Pelvic (Non ) IMPRESSION: Normal female pelvis. Electronically Signed: Paul Jacobson MD at 20:22 EDT ,
== END | disposition home or self-care (01) ==
LOC: US 15:55
PROVIDERS: PCP Family Medicine Geriatric Medicine; Referring Provider Nurse Practitioner Family; Visit Provider Nurse Practitioner Family
DX: R10.2 Pelvic and perineal pain (principal)
CPT/HCPCS: 76830; 76856

== ENCOUNTER 2024-01-04 08:53 | Day surgery (SDC) | payer BC, SELFPAY ==
--- NOTE | 2024-01-03 14:51 | NURSING ---
called and talked with pt about her recent shingles diagnosis- pt states that thought it was jennifer jeffery- saw dr pritchard on monday- he said shingles and treated her- wounds are seeping or open per pt report
[2024-01-04] VITALS (7 sets, daily range): BP systolic 127–176; BP diastolic 73–83; PULSE 52–61; RESP 16; TEMP 36.1–36.6; O2SAT 95–99; BMI 25.9
--- NOTE | 2024-01-04 09:08 | PRE.ANES_ITS ---
ASA Classification* ASA Classification ASA Classification: 2 Assessment & Plan Anesthesia* Anesthesia Assessment Anesthesia Assessment: Discussed sedation and/or anesthesia options, risks, benefits, and alternatives with patient/parents/legal guardian/POA. Questions invited. The patient/parents/legal guardian/POA seems to understand and agrees to proceed with anesthesia plan. Reviewed the physical assessment, medical history, allergy history and patient home medications list prior to surgery/procedure/anesthetic and documented any changes. Performed airway and anesthesia risk assessments. Anesthesia Type Anesthesia Type: MAC Anesthesia Focused Assessment* Airway Assessment Mouth opens: >3 cm Mallampati Score: II Focused Labs Anesthesia Preop lab: CBC WBC 9.9 K/mm3 (4.4-11.0) 08/03/23 17:10 RBC 4.40 M/mm3 (4.2-5.4) 08/03/23 17:10 Hgb 12.4 g/dL (12.0-15.0) 08/03/23 17:10 Hct 37.2 % (37-47) 08/03/23 17:10 Plt Count 251 K/mm3 (150-450) 08/03/23 17:10 CHEMISTRY Potassium 3.8 mmol/L (3.5-5.1) 08/03/23 17:10 Sodium 137 mmol/L (136-145) 08/03/23 17:10 Magnesium 1.9 mg/dL (1.6-2.6) 07/29/17 02:50 BUN 16 mg/dL (7-18) 08/03/23 17:10 Creatinine 0.80 mg/dL (0.55-1.02) 08/03/23 17:10 Glucose 102 mg/dL (74-106) 08/03/23 17:10 TSH 0.47 uIU/mL (0.358-3.74) 05/12/23 10:37 COAG Pre-Assessment Diagnosis/Proposed Procedure Planned Operative Procedure(s): COLONOSCOPY Anesthesia History Anesthesia History - registered nurse obstetrics: Anesthesia History - registered nurse obstetrics Hx Hospitalization No 01/02/24 11:02 Any Problems With Anesthesia Yes: N&V 01/02/24 11:02 Cholinesterase deficiency No 01/02/24 11:02 You/Your Family Experience No 01/02/24 11:02 fever (hyperthermia) with Relationship Recent Exposure to Contagious Disease Does patient have nerve No 01/02/24 11:02 stimulator Patient instructed to have device shut off --Does patient have Pacemaker or ICD? When Was Last Pacemaker Check QUESTION #4 FULL TEXT: You/Your Family Experience fever (hyperthermia) with Anesthesia Last Oral Intake Last Oral intake: Last Oral Intake NPO since Meds taken in AM with sips of water? Meds patient instructed to take am of surgery PONV PONV - registered nurse obstetrics: PONV - registered nurse obstetrics Female Yes 01/02/24 11:02 HX of Motion Sickness Yes 01/02/24 11:02 HX of N/V After Surgery Yes 01/02/24 11:02 Non-Smoker Yes 01/02/24 11:02 Duration of Surgery greater No 01/02/24 11:02 than 60 minutes Number of Risk Factors 4 01/02/24 11:02 PONV Score Severe Risk 01/02/24 11:02 Height & Weight Height & Weight: Anesthesia: Height & Weight Height 5 ft 4 in 09/26/23 08:40 Respiratory Assessment Respiratory Assessment - registered nurse obstetrics: Respiratory Tract Infection Hx - registered nurse obstetrics Hx Respiratory Tract Infection No 01/02/24 11:02 STOP Sleep Apnea STOP Sleep Apnea - registered nurse obstetrics: STOP Sleep Apnea - registered nurse obstetrics Hx Hypertension No 01/02/24 11:02 Hx Sleep Apnea No 01/02/24 11:02 CPAP BIPAP Do you snore loudly (louder No 01/02/24 11:02 than talking or can be heard Do you often feel tired/ No 01/02/24 11:02 fatigued/ sleepy during daytime? Has anyone observed you stop No 01/02/24 11:02 breathing during sleep? STOP Results Negative 01/02/24 11:02 QUESTION #5 FULL TEXT : Do you snore loudly (louder than talking or can be heard through closed doors)? Tobacco Use History Tobacco Use History - registered nurse obstetrics: Tobacco Use History - registered nurse obstetrics Tobacco Use Smoking Status Never smoker 01/02/24 11:02 Hx Tobacco Use No 01/02/24 11:02 Years Smoking Packs Smoked per Day Smoking Cessation Date was within the last 15 years Hx Smoking Cessation Date Hx Smoking Cessation Counseling Hematologic Medial History Hematologic Hx - registered nurse obstetrics: Hematologic Medical Hx - documentation designer Hx of Blood Transfusion No 01/02/24 11:02 Hx of Transfusion in last 3 No 01/02/24 11:02 Months Date of Last Transfusion (if within last 3 months) Ever experience any problems No 01/02/24 11:02 with transfusion(s)? Specify any problems Hx of Preganancy in last 3 No 01/02/24 11:02 Months Nurse Filling Out Transfusion VCHRISTIN 01/02/24 11:02 & Questions: Date: 01/02/24 01/02/24 11:02 Time: 11:03 01/02/24 11:02 Patient unable to answer at this time (ie. confused, unrespo /Reproduction History /Reproductive History - registered nurse obstetrics: /Reproductive Hx- registered nurse obstetrics Hx Now No 01/02/24 11:02 Gestational Age (in weeks): EDC: Hx Hx Para Hx Section SAB No 01/02/24 11:02 Active Medications Active Medications: Current Medications Generic Name Dose Route Start Last Admin Trade Name Freq PRN Reason Stop Dose Admin Lactated Ringer's 1,000 mls @ 15 mls/hr 01/04/24 09:15 IV .Q48H [facility] PFSH Medical History (Updated 01/02/24 @ 11:02 by Jacinda Medina) Wears glasses Post-menopausal Depression Shingles History of steroid therapy Arthritis Kidney stone Back pain Injury of head and neck History of diverticulitis Non-smoker History of echocardiogram History of stress test Physical exam, pre-employment Left ureteral stone Muscle spasm of back Left groin pain Hydrocalycosis Osteoarthritis Fatty liver Headache DVT (deep venous thrombosis) Abdominal pain Kidney cysts Diverticulitis Home Medications ?Medication ?Instructions ?Recorded ?Last Taken ?Type ferrous sulfate 325 mg (65 mg 325 mg PO DAILY supplement 07/29/17 07/28/17 History iron) tablet fluoxetine 20 mg tablet 20 mg PO DAILY 09/21/23 Unknown History hydrocortisone acetate 25 mg 25 mg MO DAILY PRN hemorrhoids 09/21/23 Unknown History rectal suppository (Anucort-HC) mesalamine 1.2 gram tablet,delayed 1.2 g PO DAILY #30 tabs 12/14/23 Unknown Rx release sodium sul 1.479 gram-potas ch See Rx Instructions PO PER PKG DIR 12/14/23 Unknown Rx 0.188 gram-magnes sul 0.225 gram #24 tabs tablet (Sutab) calcium carbonate 600 mg-vitamin 1 tab PO DAILY 01/02/24 Unknown History D3 5 mcg (200 unit) tablet (Calcium 600 + D(3)) cephalexin 500 mg capsule 500 mg PO TID 01/02/24 Unknown History cholecalciferol (vitamin D3) 25 25 mcg PO DAILY 01/02/24 Unknown History mcg (1,000 unit) capsule (Vitamin D3) prednisone 10 mg tablet 10 mg PO UD 01/02/24 Unknown History valacyclovir 1 gram tablet 1,000 mg PO TID 01/02/24 Unknown History Allergy/AdvReac Type Severity Reaction Status Date / Time morphine AdvReac Vomiting Verified 01/02/24 10:44 Family History Mother Diabetes Father Diabetes Alzheimer disease Surgical History (Updated 01/02/24 @ 11:02 by Jacinda Medina) H/O shoulder surgery H/O vein stripping Social History Smoking Status: Never smoker alcohol intake: never substance use type: does not use Review of Systems (Anesthesia) ROS Narrative System reviewed and no additional complaints, except as documented.
[2024-01-04] MEDS: Lactated Ringers 1,000 ML 15 ML IV (09:31)
--- NOTE | 2024-01-04 09:51 | PCM.HP.BLA ---
History and Physical Date of Admission: 01/04/24 ADRIANO CAMPO, is a 68 F who presents to the office today for initial consult. abd/pelvis CT 3..24 Inflammatory changes and a masslike lesion seen in the descending colon with inflammatory markings in the surrounding fat. A neoplastic process with penetration should be ruled out. There are several tiny diverticula seen at that site as well. A filling defect is seen in the left gonadal vein. An intraluminal thrombus should be ruled out. Left renal cyst. *BGI established 12.14.23 pt reprots that 2 years ago she had a + cologuard test and then had a colonoscopy with Dr Bell which was normal. When she was in the ER in the beginning on August [address] scan found diverticulitis, a kidney stone, and a mass in her colon. Pt states that she occasional abdominal pain due to her diverticulosis. Reports normal bm; denies blood in the stool. ROS Const Constitutional: No fatigue, fever(s) or weight change ENT ENT: No difficulty swallowing Gastro GI: Positive for abdominal pain; No belching, bloating, change in bowel habits, change in stool character, coffee ground emesis, constipation, cramping, diarrhea, heartburn, difficulty swallowing, feeling full early, excessive flatus, incontinent of stools, Vomiting blood/hematemesis, Blood in stool, loose stools, Black,tarry stools, nausea/dyspepsia, pain with swallowing, vomiting or other Musc Musculoskeletal: Positive for joint pain, back pain and Arthritis Skin Skin: No yellowing of the eye or itchy eyes Psych Psychiatric: No anxiety and Positive for depression Endo Endocrine: No fatigue or weight change Aller/Imm Allergy/Immunologic: No itchy eyes Renaldo/Lymp Hematologic/Lymphatic: Positive for easy bruising; No easy bleeding Exam Const General: cooperative and comfortable Nutritional Appearance: average body habitus and well nourished HENOK Head: normal to inspection Ears: hearing grossly normal bilaterally Nose: external nose normal Face and sinus: normal facial exam Mouth: oral mucosae normal Throat: posterior oropharynx normal Eyes General: appearance normal, both eyes and all related structures Neck Neck: normal visual inspection Chest Chest palpation & inspection: normal inspection of the chest and normal palpation of entire chest wall Resp Effort & Inspection: normal respiratory effort Auscultation: Bilateral: Clear to Auscultation Cardio Palpation: normal PMI Rate: regular rate Rhythm: regular rhythm GI Inspection: normal to inspection Auscultation: normal bowel sounds Percussion: normal to percussion Palpation: no hepatosplenomegaly Skin General: no rashes or lesions noted Neuro General: patient alert Extrem General: normal to inspection Psych Affect: normal affect Assessment and Plan Assessment and Plan (1) Colonic mass: Status: Acute (2) Diverticulitis: Status: Acute Plan: She had LLQ/flank pain around that same time that was found to be likely due to kidney stone, but she also was found to have descending colon inflammation/possible mass as well as incidental finding of left ovarian vein thrombus. She was started on Eliquis which was stopped due to excessive bruising. She has subsequently had transvaginal ultrasound that did not demonstrate ovarian vein abnormality; thrombus was seen on CT in the more superior aspect of vessel, though it is unclear if actually thrombus or a valve. Her flank pain resolved as her kidney stones passed. I suspect that the mass seen in her colon is possibly inflammatory phlegmon and. However she should get colonoscopy to evaluate her lower GI tract to make sure that this mass was only associated with diverticulitis. Medications: New mesalamine 1.2 grams PO DAILY 30 tabs 3RF sod sulf-pot chloride-mag sulf 1.479-0.188- 0.225 gram (Sutab) PO PER PKG DIR 24 tabs 0RF I have examined the patient and the H&P has been reviewed. There are no clinical changes since date of exam.
--- NOTE | 2024-01-04 10:00 | COLBX_PTH ---
PATIENT: ADRIANO CAMPO LOC: EN U#:[id number] AGE/SX: 68/F ROOM: RE01/04/[address]: Dr. Josué Bell DO : 1955 BED: DIS: 01/04/2024 SPEC #: [id number] RECD: 01/04/24 12:33 STATUS: ALEK RESarabjit #: [id number] VIC: 01/04/24 10:[address]: Josué Bell DEPT: SURGICAL PATHOLOGY RECD BY: Mary Dutta ENTERED: 01/04/24 13:18 SP TYPE: COLON BX OTHR DR: Dr. Qamar Davison MD Tissues: Cecum, NOS Procedures: Surgery Specimen Level IV HEADER OPERATION: Colonoscopy with polypectomy PRE-OP DIAGNOSIS: Colonic mass, diverticulitis TISSUE SUBMITTED: Cecal polyp with cold snare MICROSCOPIC DIAGNOSIS Cecal polyp, biopsy: A fragment of benign colonic mucosa. See comment. RICHY/ 01/05/2024 COMMENT Neither hyperplastic nor adenomatous change is identified. Clinical correlation is suggested. MICROSCOPIC DESCRIPTION Slides are reviewed. GROSS DESCRIPTION Received in fixative is one container labeled with the patient's name and designated Cecal polyp. The specimen consists of two irregular fragments of light vázquez soft tissue that in aggregate measure 0.2 x 0.1 x 0.1 cm. The specimen is totally submitted in one cassette. BRYAN/ 01/04/2024 TC:5 CPT:64360
--- NOTE | 2024-01-04 10:29 | PCM.POST.ANE ---
Anesthesia: Postop Eval I Current Vital Signs Temperature: 97 F Pulse Rate: 60 Blood Pressure: 128/73 Respiratory Rate: 16 Pulse Ox: 97 Oxygen Delivery Method: Room Air Assessment Airway patent: Yes Spontaneous unlabored respirations: Yes Mental status: Asleep nausea: No Vomiting: No Anesthesia Complication: No Fluid Hydration Crystalloid volume administer (ml): 600 Total IV fluid infused: 600 Progress Note Anesthesia document: Postop Eval 1 completed: Yes
--- NOTE | 2024-01-04 10:30 | OP.COLON_ITS ---
Patient Name: Josselin Henry Procedure Date: 01/04/2024 9:51 AM Date of : 1955 Age: 68 Procedure: Colonoscopy Indications: Abnormal CT of the GI tract Providers: Josué Bell DO Referring MD: Qamar Davison MD Medicines: Monitored Anesthesia Care Patient Profile: This is a 68 year old female. Refer to note in patient chart for documentation of history and physical. Last Colonoscopy: several years ago. Complications: No immediate complications. Procedure: Pre-Anesthesia Assessment: - Prior to the procedure, a History and Physical was performed, and patient medications and allergies were reviewed. The risks and benefits of the procedure and the sedation options and risks were discussed with the patient. All questions were answered and informed consent was obtained. Patient identification and proposed procedure were verified by the physician in the pre-procedure area. Mental Status Examination: alert and oriented. Airway Examination: normal oropharyngeal airway and neck mobility. Respiratory Examination: clear to auscultation. CV Examination: normal. Prophylactic Antibiotics: The patient does not require prophylactic antibiotics. Prior Anticoagulants: The patient has taken no anticoagulant or antiplatelet agents. After reviewing the risks and benefits, the patient was deemed in satisfactory condition to undergo the procedure. The anesthesia plan was to use monitored anesthesia care (MAC). Immediately prior to administration of medications, the patient was re-assessed for adequacy to receive sedatives. The heart rate, respiratory rate, oxygen saturations, blood pressure, adequacy of pulmonary ventilation, and response to care were monitored throughout the procedure. The physical status of the patient was re-assessed after the procedure. After I obtained informed consent, the scope was passed under direct vision. Throughout the procedure, the patient's blood pressure, pulse, and oxygen saturations were monitored continuously. The colonoscope was introduced through the anus and advanced to the cecum, identified by appendiceal orifice and ileocecal valve. The colonoscopy was performed without difficulty. The patient tolerated the procedure well. The quality of the bowel preparation was adequate. The ileocecal valve, appendiceal orifice, and rectum were photographed. Scope In: 10:07:15 AM Scope Withdrawal Time 0 hours 8 minutes 7 seconds Scope Out: 10:19:36 AM Total Procedure Duration Time 0 hours 12 minutes 21 seconds Findings: The perianal and digital rectal examinations were normal. Multiple small and large-mouthed diverticula were found in the recto-sigmoid colon, sigmoid colon and descending colon. A 5 mm polyp was found in the cecum. The polyp was sessile. The polyp was removed with a cold snare. Resection and retrieval were complete. Verification of patient identification for the specimen was done. Estimated blood loss was minimal. The exam was otherwise without abnormality on direct and retroflexion views. Impression: - Diverticulosis in the recto-sigmoid colon, in the sigmoid colon and in the descending colon. - One 5 mm polyp in the cecum, removed with a cold snare. Resected and retrieved. - The examination was otherwise normal on direct and retroflexion views. Recommendation: - Discharge patient to home. - Resume previous diet. - Continue present medications. - Await pathology results. - Repeat colonoscopy in 5 years for surveillance. Procedure Code(s): --- Professional --- 99116, Colonoscopy, flexible; with removal of tumor(s), polyp(s), or other lesion(s) by snare technique CPT copyright 2021 [employer]. All rights reserved. The codes documented in this report are preliminary and upon green building energy engineer review may be revised to meet current compliance requirements. Josué Bell DO 01/04/2024 10:29:59 AM This report has been signed electronically. Number of Addenda: 0 Note Initiated On: 01/04/2024 9:51 AM
--- NOTE | 2024-01-04 10:30 | OP.CCLET_ITS ---
01/04/2024 Qamar Davison MD [address] [place] [address] Re : Colonoscopy procedure for Josselin Henry Dear Dr. Davison This procedure was performed on January. My impressions and recommendations are as follows: Impressions : - Diverticulosis in the recto-sigmoid colon, in the sigmoid colon and in the descending colon. - One 5 mm polyp in the cecum, removed with a cold snare. Resected and retrieved. - The examination was otherwise normal on direct and retroflexion views. Recommendations : - Discharge patient to home. - Resume previous diet. - Continue present medications. - Await pathology results. - Repeat colonoscopy in 5 years for surveillance. My findings are described in the full procedure note, which is enclosed. If I can be of further assistance, please feel free to contact me at . Sincerely, Josué Bell, 01/04/2024 10:29:59 AM This report has been signed electronically.
--- NOTE | 2024-01-04 10:38 | PCM.POSTANE2 ---
Anesthesia Postop Eval I Sum Postop Eval Completion status Anesthesia document: Postop Eval 1 completed: Yes Anesthesia Postop Eval I Summary Anesthesia Postop Eval I Summary: Anesthesia Postop Eval I: Assessment Summary Airway patent Yes 01/04/24 10:31 [email or web address] Spontaneous unlabored Yes 01/04/24 10:31 [email or web address] respirations Mental status Asleep 01/04/24 10:31 [email or web address] nausea No 01/04/24 10:31 [email or web address] Vomiting No 01/04/24 10:31 [email or web address] Anesthesia Postop Eval I: Fluid Summary Crystalloid volume administer 600 01/04/24 10:31 [email or web address] (ml) Colloids volume administered ( ml) Blood Product volume administered (ml) Total IV fluid infused 600 01/04/24 10:31 [email or web address] Anesthesia Postop Eval I: Summary Notes Anesthesia Complication No 01/04/24 10:31 [email or web address] Anesthesia Complication Comment: Post-operative progress note Anesthesia: Postop Eval II Evaluation Mental status: Awake Pain Level: 0 nausea: No Vomiting: No
== END 2024-01-04 11:09 | disposition home or self-care (01) ==
LOC: EN 08:57 → AC 09:00
PROVIDERS: PCP Family Medicine Geriatric Medicine; Referring Provider Family Medicine Geriatric Medicine; Visit Provider Internal Medicine Gastroenterology
PROC: 0DJD8ZZ Inspection of Lower Intestinal Tract, Via Natural or Artificial Opening Endoscopic (ICD-10-PCS; CPT 45378; principal; 2024-01-04 09:55)
DX: K57.30 Diverticulosis of large intestine without perforation or abscess without bleeding (principal); K63.5 Polyp of colon; Z79.899 Other long term (current) drug therapy
CPT/HCPCS: 45385; 88305; J7120; J2405

== ENCOUNTER → 2024-02-16 | Outpatient (CLI) | payer BC, SELFPAY ==
--- NOTE | 2024-02-16 12:15 | RAD_ITS ---
INDICATION: LEFT HIP PAIN EXAMINATION/TECHNIQUE: X-RAY - XR Hip Unilateral with Pelvis when performed; 3 Views COMPARISON: FINDINGS: PELVIC BONES: No displaced fracture, destructive or sclerotic lesions. Note that overlapping bowel shadows may however obscure fine detail. Sacroiliac joints are unremarkable. No widening of the pubic symphysis. HIPS: The articular structures are unremarkable. No displaced fracture seen in this frontal view. SOFT TISSUES: No soft tissue swelling or gas. RAD/HIP, UNI W/ Pelvis 2-3 Views IMPRESSION: No evidence of displaced pelvic or hip fracture. Electronically Signed: Ted Nieto DO at 19:13 EDT Reading Location ID and State: [facility] / [place] Tel [phone], Service support ,
--- NOTE | 2024-02-16 12:15 | RAD_ITS ---
STUDY: X-RAY - LUMBAR SPINE REASON FOR EXAM: Female, 68 years old. Low back pain. TECHNIQUE: 4 view(s) of the lumbar spine were obtained. COMPARISON: July 14, 2020 FINDINGS: Stable osteopenia. Normal lumbar lordosis. No scoliosis. 6 mm of anterolisthesis of L4 on L5. Diffuse moderate lower thoracic and lumbosacral facet sclerosis unchanged. Mild diffuse intervertebral disc space narrowing, unchanged from prior study. Phleboliths. RAD/L/S Spine Min 4 Views IMPRESSION: Stable osteopenia with diffuse mild lower thoracic and lumbosacral spondylosis. Electronically Signed: Jose Tabor MD at 13:55 EDT ,
== END | disposition home or self-care (01) ==
LOC: RAD 12:12
PROVIDERS: PCP Family Medicine Geriatric Medicine; Referring Provider Family Medicine Geriatric Medicine; Visit Provider Family Medicine Geriatric Medicine
DX: M54.50 Low back pain, unspecified (principal); M25.552 Pain in left hip; R29.898 Other symptoms and signs involving the musculoskeletal system; M54.16 Radiculopathy, lumbar region; M51.9 Unspecified thoracic, thoracolumbar and lumbosacral intervertebral disc disorder
CPT/HCPCS: 72110; 73502

== ENCOUNTER → 2024-03-25 | Outpatient (CLI) | payer BC, SELFPAY ==
--- NOTE | 2024-03-25 09:30 | MRI_ITS ---
STUDY: MRI LUMBAR SPINE WITHOUT CONTRAST REASON FOR EXAM: Female, 68 years old. RADICULOPATHY, LOW BACK PAIN INTO L GROIN TECHNIQUE: Standardized fat and water weighted pulse sequences were obtained in the sagittal and axial planes. COMPARISON: CT of abdomen and pelvis dated August 04, 2023. X-ray the lumbar spine dated February 16, 2024 FINDINGS: Normal lumbar lordosis. There is no substantial scoliosis. Normal conus medullaris that terminates at the T12 level. No marrow edema or fracture or compression deformity is present. No aggressive abnormalities seen. T12-L1: Normal endplates. Normal disc height, hydration and morphology. Normal bilateral facet joints. Normal central canal and bilateral lateral recesses. Normal bilateral intervertebral neural foramina. L1-2: Normal endplates. Normal disc height, hydration and morphology. Normal bilateral facet joints. Normal central canal and bilateral lateral recesses. Normal bilateral intervertebral neural foramina. L2-3: Moderate disc space narrowing with diffuse disc desiccation and mild disc bulging Normal bilateral facet joints. Normal central canal and bilateral lateral recesses. Normal bilateral intervertebral neural foramina. L3-4: Normal endplates. Diffuse disc desiccation with mild posterior disc space narrowing and annular bulging. Small tear in the annulus of the disc. Mild facet joint hypertrophy. Mild fluid distention of facet joints. Normal central canal and bilateral lateral recesses. Mild bilateral foraminal stenosis L4-5: Normal endplates. Diffuse disc desiccation with moderate disc space narrowing and diffuse disc bulging. Superimposed midline disc protrusion. Mild central canal stenosis and bilateral lateral recess stenosis with nerve root impingement. Anterolisthesis of L4 and L5 of 2 mm. L5-S1: Normal endplates. Normal disc height, hydration and morphology. Mild to moderate facet joint hypertrophy. Normal central canal and bilateral lateral recesses. Normal bilateral intervertebral neural foramina. Normal visualized sacral ala. There is mild paraspinal muscular atrophy. Small cysts are present in both kidneys which are simple and do not requiring additional imaging or assessment. MRI/Spine Lumbar (Routine) IMPRESSION: 1. Multilevel degenerative changes, as described above. Electronically Signed: Karthik Jurado MD at 10:54 EDT ,
== END | disposition home or self-care (01) ==
LOC: MRI 09:03
PROVIDERS: PCP Family Medicine Geriatric Medicine; Referring Provider Family Medicine Geriatric Medicine; Visit Provider Family Medicine Geriatric Medicine
DX: M54.50 Low back pain, unspecified (principal); M25.552 Pain in left hip; R29.898 Other symptoms and signs involving the musculoskeletal system; M54.16 Radiculopathy, lumbar region; M51.9 Unspecified thoracic, thoracolumbar and lumbosacral intervertebral disc disorder
CPT/HCPCS: 72148

== ENCOUNTER → 2024-05-15 | Outpatient (CLI) | payer BC, SELFPAY ==
[2024-05-15 17:37] LABS: Absolute Lymphocyte Count 2.37 X10^3/uL (0.83-4.51); Absolute Neutrophil Count 6.1 X10^3/uL (2.0-7.7); Basophil# 0.04 X10^3/uL; Basophil% 0.4 % (0-1); Eosinophil# 0.17 X10^3/uL; Eosinophils% 1.8 % (0-5); Hemoglobin 12.1 g/dL (12.0-15.0); Lymphocyte # 2.37 X10^3/ul (0.83-4.51); Lymphocyte % 25.1 % (19-41); Mean Corp Hgb Conc 31.8 g/dL (32-36); Mean Corpuscular Hgb 27.8 pg (27.0-32.0); Mean Corpuscular Volume 87.4 fL (81-99); Monocyte# 0.72 X10^3/uL; Monocyte% 7.6 % (0-10); NRBC Flagged by Analyzer 0 % (0-5); Neutrophil # 6.08 X10^3/uL (2.7-7.7); Neutrophil % 64.3 % (47-70); Platelet Count 377 K/mm3 (150-450); RBC Distribution Width CV 12.5 % (11.6-14.6); RBC Distribution Width SD 39.8 fl (35.1-43.9); Red Blood Count 4.35 M/mm3 (4.2-5.4); White Blood Count 9.5 K/mm3 (4.4-11.0)
[2024-05-15 17:47] LABS: Vitamin D,25 Hydroxy 68.1 ng/mL
[2024-05-15 17:54] LABS: ALB/GLOB Ratio 1.1 RATIO (0.9-2.4); AST(SGOT) 22 U/L (15-37); Alanine Aminotransfer ALT/SGPT 26 U/L (13-56); Albumin, Serum 3.6 g/dL (3.2-5.0); Alkaline Phosphatase 110 U/L (45-117); Anion Gap 5 (5-15); BUN 14 mg/dL (7-18); Calcium,Total 8.9 mg/dL (8.5-10.1); Chloride 108 mmol/L (98-107); Creatinine, Serum 0.67 mg/dL (0.55-1.02); EST Glomerular Filtration Rate 94 mL/min (>60); Est Glom Filt Rate - Afr Amer 113 mL/min (>60); Globulin 3.4 g/dL (2.2-4.2); Glucose 91 mg/dL (74-106); Potassium 3.8 mmol/L (3.5-5.1); Sodium Level 140 mmol/L (136-145); Thyroid Stim Hormone (TSH) 0.387 uIU/mL (0.358-3.740)
== END | disposition home or self-care (01) ==
LOC: LAB 16:55
PROVIDERS: PCP Family Medicine Geriatric Medicine; Referring Provider Family Medicine Geriatric Medicine; Visit Provider Family Medicine Geriatric Medicine
DX: R53.83 Other fatigue (principal); E55.9 Vitamin D deficiency, unspecified
CPT/HCPCS: 36415; 80053; 82306; 84443; 85025

== ENCOUNTER → 2024-07-23 | Outpatient (CLI) | payer BC, SELFPAY | END | disposition home or self-care (01) | PROVIDERS: PCP Family Medicine Geriatric Medicine; Visit Provider Family Medicine Geriatric Medicine | DX: N39.0 Urinary tract infection, site not specified (principal) | CPT/HCPCS: 87077; 87086; 87088; 87186 ==

== ENCOUNTER → 2024-07-23 | Outpatient (CLI) | payer BC, SELFPAY ==
--- NOTE | 2024-07-23 15:17 | VDLE_ITS ---
Reason For Study Reason For Study: LLE Pain / HX DVT RIGHT LEFT FV is compressible, phasic, and INCOMPETENT for Unable to visualize Lt GSV. PT has HX of greater than 1.0 second. Stripping/Ablation procedure. Procedure CFV is compressible, spontaneous, phasic, competent, This is a venous duplex using B-mode, color flow and and demonstrates normal augmentation. spectral Doppler. FV is compressible, spontaneous, phasic, competent and Exam performed in department. demonstrates normal augmentation. The exam was diagnostic. POP V is compressible, phasic, and INCOMPETENT for A preliminary report was called and/or faxed to greater than 1.0 second. [facility]. T/P Trunk is compressible. PTV is compressible. LT PerV is compressible. VL/Venous Duplex US, Unilateral Interpretation Summary Deep veins of the left lower extremity are patent and compressible segmentally. There is no evidence of left lower extremity deep vein thrombosis. Incidental reflux identified in the left popliteal vein, right femoral vein. Ordering Physician: Qamar Davison Chi Referring Physician: Qamar Davison Chi Performed By: Marito Baker RVT
[2024-07-23 16:35] LABS: Absolute Lymphocyte Count 1.99 X10^3/uL (0.83-4.51); Absolute Neutrophil Count 4.7 X10^3/uL (2.0-7.7); Basophil# 0.04 X10^3/uL; Basophil% 0.5 % (0-1); Eosinophil# 0.08 X10^3/uL; Eosinophils% 1.1 % (0-5); Hemoglobin 12.8 g/dL (12.0-15.0); Lymphocyte # 1.99 X10^3/ul (0.83-4.51); Lymphocyte % 26.7 % (19-41); Mean Corpuscular Hgb 27.7 pg (27.0-32.0); Mean Corpuscular Volume 86.6 fL (81-99); Mean Platelet Vol. 8.9 fl (6.2-12.0); Monocyte% 6.7 % (0-10); NRBC Flagged by Analyzer 0 % (0-5); Neutrophil # 4.74 X10^3/uL (2.7-7.7); Neutrophil % 63.8 % (47-70); Platelet Count 242 K/mm3 (150-450); RBC Distribution Width CV 13.9 % (11.6-14.6); RBC Distribution Width SD 43.9 fl (35.1-43.9); Red Blood Count 4.62 M/mm3 (4.2-5.4); White Blood Count 7.4 K/mm3 (4.4-11.0)
[2024-07-23 16:43] LABS: International Normalized Ratio 0.9; Prothrombin Time (Protime)PT. 12.5 SECONDS (11.7-14.9)
[2024-07-23 16:58] LABS: Anion Gap 8 (5-15); BUN 19 mg/dL (7-18); BUN/Creat Ratio 28.7 RATIO (10-20); Calcium,Total 8.8 mg/dL (8.5-10.1); Chloride 108 mmol/L (98-107); Creatinine, Serum 0.66 mg/dL (0.55-1.02); EST Glomerular Filtration Rate 95 mL/min (>60); Est Glom Filt Rate - Afr Amer 115 mL/min (>60); Glucose 88 mg/dL (74-106); Potassium 3.9 mmol/L (3.5-5.1); Sodium Level 142 mmol/L (136-145)
== END | disposition home or self-care (01) ==
PROVIDERS: PCP Family Medicine Geriatric Medicine; Referring Provider Family Medicine Geriatric Medicine; Visit Provider Family Medicine Geriatric Medicine
DX: S80.12XA Contusion of left lower leg, initial encounter (principal); M25.062 Hemarthrosis, left knee
CPT/HCPCS: 36415; 80048; 85025; 85610; 93971

== ENCOUNTER → 2025-03-03 | Outpatient (CLI) | payer BC, SELFPAY ==
--- NOTE | 2025-03-03 10:03 | US_ITS ---
PROCEDURE: EXT NON VASC LIMITED/SOFT TISS 03/03/2025 REASON FOR EXAM: LEFT BUTTOCK ABSCESS TECHNIQUE: Procedure Code: [id number] Modality: US Procedure: EXT NON VASC LIMITED/SOFT TISS COMPARISON: None. FINDINGS: There is a complex nodule in the subcutaneous fat measuring 6 x 5 x 4 mm, may contain some fluid, but does not demonstrate significant posterior enhancement. US/Ext Non Vasc Limited/Soft Tiss IMPRESSION: Complex nodule in the buttock, as described, of uncertain etiology. Reading Location: [place] [id number]
--- NOTE | 2025-03-03 10:03 | US_ITS ---
PROCEDURE: EXT NON VASC LIMITED/SOFT TISS 03/03/2025 REASON FOR EXAM: LEFT BUTTOCK ABSCESS TECHNIQUE: Procedure Code: [id number] Modality: US Procedure: EXT NON VASC LIMITED/SOFT TISS COMPARISON: None. FINDINGS: There is a complex nodule in the subcutaneous fat measuring 6 x 5 x 4 mm, may contain some fluid, but does not demonstrate significant posterior enhancement. US/Ext Non Vasc Limited/Soft Tiss IMPRESSION: Complex nodule in the buttock, as described, of uncertain etiology. Reading Location: [place] [id number]
== END | disposition home or self-care (01) ==
PROVIDERS: PCP Family Medicine Geriatric Medicine; Referring Provider Family Medicine Geriatric Medicine; Visit Provider Family Medicine Geriatric Medicine
DX: L02.31 Cutaneous abscess of buttock (principal); M79.18 Myalgia, other site
CPT/HCPCS: 76882

== ENCOUNTER → 2025-04-08 | Outpatient (CLI) | payer BC, SELFPAY | END | disposition home or self-care (01) | LOC: POLAB3 16:37 | PROVIDERS: PCP Family Medicine Geriatric Medicine; Visit Provider Family Medicine Geriatric Medicine | DX: N39.0 Urinary tract infection, site not specified (principal) | CPT/HCPCS: 87077; 87086; 87088; 87186 ==